=== PATIENT | female | born 1940 | race Caucasian/White ===

== ENCOUNTER 2017-02-06 21:15 | Inpatient (IN) | payer MEDICARE ==
[2017-02-06] VITALS (7 sets, daily range): BP systolic 141–180; BP diastolic 71–85; PULSE 53–70; RESP 18–24; TEMP 98; O2SAT 98–100
[~2017-02-06] VITALS: Ht 162.6 cm; Wt 81.1 kg
[2017-02-06] MEDS ORDERED: SODIUM CHLOR 0.9% 1000 ML INJ 1,000 ML IV ONE (21:30)
--- NOTE | 2017-02-06 21:39 | RADRPT ---
EXAM DATE/TIME: 02/06/2017 21:29 [facility] COMPARISON: No previous studies available for comparison. INDICATIONS : Stroke alert; left weakness, aphasia and hypertensive RADIATION DOSE: 56.35 CTDIvol (mGy) This report was called by Dr. Tariq to Dr. Koo at 9: 36 PM MEDICAL HISTORY : None SURGICAL HISTORY : None. ENCOUNTER: Initial ACUITY: 1 day PAIN SCALE: 0/10 LOCATION: cranial TECHNIQUE: Multiple contiguous axial images were obtained of the head. Using automated exposure control and adj ustment of the mA and/or kV according to patient size, radiation dose was kept as low as reasonably a chievable to obtain optimal diagnostic quality images. FINDINGS: CEREBRUM: The ventricles are normal for age. No evidence of midline shift, mass lesion, hemorrhage or acute in farction. No extra-axial fluid collections are seen. Mild chronic white matter low attenuation noted . POSTERIOR FOSSA: The cerebellum and brainstem are intact. The 4th ventricle is midline. The cerebellopontine angle i s unremarkable. EXTRACRANIAL: The visualized portion of the orbits is intact. SKULL: The calvaria is intact. No evidence of skull fracture. CONCLUSION: 1. No bleed or other acute intracranial abnormality. 2. Nothing convincing for an acute ischemic event. 3. Mild, chronic white matter changes. Henrique Tariq MD on February 06, 2017 at 21:36 Board Certified Radiologist. This report was verified electronically.
[2017-02-06 21:58] LABS: I-STAT POTASSIUM 3.9 MMOL/L (3.5-4.9); I-STAT SODIUM 140 MMOL/L (138-146)
[2017-02-06 21:59] LABS: AUTOMATED NEUTROPHIL # 3.4 TH/MM3 (1.8-7.7); BASOPHIL # 0.1 TH/MM3 (0-0.2); BASOPHIL % 1.5 % (0.0-2.0); EOSINOPHIL # 0.5 TH/MM3 (0-0.4); EOSINOPHIL % 7.5 % (0.0-4.0); HEMATOCRIT 38.7 % (35.0-46.0); HEMO FLAGS DIFF FINAL; LYMPHOCYTE # 2.1 TH/MM3 (1.0-4.8); MEAN CELL VOLUME 89.9 FL (80.0-100.0); MEAN CORPUSCULAR HEMOGLOBIN 30.7 PG (27.0-34.0); MEAN CORPUSCULAR HGB CONC 34.1 % (32.0-36.0); MONO % 11.3 % (0.0-8.0); NEUT % 49.7 % (16.0-70.0); PLATELET COUNT 183 TH/MM3 (150-450); RED BLOOD COUNT 4.31 MIL/MM3 (4.00-5.30); WHITE BLOOD COUNT 6.9 TH/MM3 (4.0-11.0)
--- NOTE | 2017-02-06 22:02 | PD ---
HPI Chief Complaint: Neuro Symptoms/ Deficits Time Seen by Provider: 21:22 Travel History International Travel<30 days: No Contact w/Intl Traveler<30days: No Traveled to known affect area: No History of Present Illness HPI The patient is a 76-year-old female with no known history of CVA or TIA who was last seen by her family at 1900 this afternoon and when the family arrived she had complete aphasia and right facial droop. Both a right facial droop and aphasia resolved quickly in the ambulance and when she arrives here she has normal speech and no facial droop. She denies any other weakness. She denies any headache. She has a history of elevated cholesterol, hypertension and restless leg syndrome. She takes Robinul for the restless leg syndrome and is on no other medication. [facility] Social History Tobacco Use: No Allergies-Medications (Allergen,Severity, Reaction): Coded Allergies: No Known Allergies (Unverified , 02/06/17) Reported Meds & Prescriptions Reported Meds & Active Scripts Active Reported Ropinirole 0.25 Mg Tab 0.25 Mg PO TID Review of Systems Except as stated in HPI: all other systems reviewed are Neg Physical Exam Narrative GENERAL: The patient is alert, oriented 3 in no apparent distress. Vital signs are 180/84 but are otherwise normal. SKIN: Focused skin assessment warm/dry. HEAD: Atraumatic. Normocephalic. EYES: Pupils equal and round. No scleral icterus. No injection or drainage. ENT: No nasal bleeding or discharge. Mucous membranes pink and moist. NECK: Trachea midline. No JVD. CARDIOVASCULAR: Regular rate and rhythm. No murmur appreciated. RESPIRATORY: No accessory muscle use. Clear to auscultation. Breath sounds equal bilaterally. GASTROINTESTINAL: Abdomen soft, non-tender, nondistended. Hepatic and splenic margins not palpable. MUSCULOSKELETAL: No obvious deformities. No clubbing. No cyanosis. No edema. NEUROLOGICAL: Awake and alert. No obvious cranial nerve deficits. Motor grossly within normal limits. Normal speech. No facial droop is noted at this time. PSYCHIATRIC: Appropriate mood and affect; insight and judgment normal. Data Data Last Documented VS Vital Signs Date Time Temp Pulse Resp B/P Pulse Ox O2 Delivery O2 Flow Rate FiO2 02/06/17 21:44 98 Nasal Cannula 2.00 02/06/17 21:35 59 18 162/72 02/06/17 21:[address] Brain W/O Iv Contrast(Rout) (02/06/17 ) Diet Npo (02/07/17 Breakfast) Activity Bed Rest (02/06/17 ) Electrocardiogram (02/06/17 ) I-Stat Creatinine (02/06/17 21:22) I-Stat Profile (02/06/17 21:22) Prothrombin Time / Inr (Pt) (02/06/17 21:22) Act Partial Throm Time (Ptt) (02/06/17 21:22) Complete Blood Count With Diff (02/06/17 21:22) Fibrinogen (02/06/17 21:22) Creatine Kinase (Cpk) (02/06/17 21:22) Troponin I (02/06/17 21:22) Ua Includes Microscopic (02/06/17 21:22) Drug Screen, Random Urine (02/06/17 21:22) Type And Screen (02/06/17 21:22) Consult Neurology (02/06/17 ) Blood Glucose (02/06/17 21:22) Ecg Monitoring (02/06/17 21:22) Neuro Checks Q2HX12,Q4H (02/06/17 21:22) Nursing Bedside Swallow Assess .ONCE (02/06/17 21:22) Iv Access Insert/Monitor (02/06/17 21:22) NPO (02/06/17 21:22) Oximetry (02/06/17 21:22) Oxygen Administration (02/06/17 21:22) Resp Oxygen Santy C Titrat 1-4 L (02/06/17 21:22) Cath For Specimen (02/06/17 21:22) Sodium Chlor 0.9% 1000 Ml Inj (Ns 1000 M (02/06/17 21:30) (Hub Use Only)Inp Phy Cons/Ref (02/06/17 ) Place In Observation (02/06/17 ) Vital Signs (Adult) Q2HX12,Q4H (02/06/17 22:15) Nih Stroke Scale - Nihss .Daily (02/06/17 22:15) Neuro Checks Q2HX12,Q4H (02/06/17 22:15) Notify Dr: Other (02/06/17 22:15) Ot Request For Service (02/06/17 22:15) Pt Request For Service (02/06/17 22:15) St Request For Service (02/06/17 22:15) Case Management Consult (02/06/17 ) Activity Oob Ad Ranjana (02/06/17 22:15) Nursing Bedside Swallow Assess .ONCE (02/06/17 22:15) Hemoglobin (Hgb) A1c (02/06/17 22:15) Lipid Profile (02/07/17 06:00) Remove Urinary Catheter .ONCE (02/06/17 22:15) Sodium Chloride 0.9% Flush (Ns Flush) (02/07/17 09:00) Sodium Chloride 0.9% Flush (Ns Flush) (02/06/17 22:15) Bedside Glucose PAXTON.AC&HS (02/06/17 22:15) ^ Discontinue Insulin Orders (02/06/17 22:15) Insulin Aspart Supplemtl Scale (Novolog (02/07/17 07:00) Dextrose 50% In Dipesh (Vial) Inj (D50w (Vi (02/06/17 22:15) Glucagon Inj (Glucagon Inj) (02/06/17 22:15) Manager Diesel / Telemetry PAXTON.Q8H (02/06/17 22:15) Consult Stoke Navigator (02/06/17 ) Us Carotid Arteries Comp Bilat (02/06/17 ) Echo 2d Comp W/Dopp(Routine) (02/06/17 ) CKMB (02/06/17 21:24) CKMB% (02/06/17 21:24) Admit Order (Ed Use Only) (02/06/17 22:20) Aspirin (Aspirin) (02/06/17 22:30) Labs Laboratory Tests Test 02/06/17 21:24 White Blood Count 6.9 TH/MM3 Red Blood Count 4.31 MIL/MM3 Hemoglobin 13.2 GM/DL Bedside Hemoglobin 12.9 G/DL Hematocrit 38.7 % Bedside Hematocrit 38.0 % Mean Corpuscular Volume 89.9 FL Mean Corpuscular Hemoglobin 30.7 PG Mean Corpuscular Hemoglobin 34.1 % Concent Red Cell Distribution Width 14.0 % Platelet Count 183 TH/MM3 Mean Platelet Volume 8.8 FL Neutrophils (%) (Auto) 49.7 % Lymphocytes (%) (Auto) 30.0 % Monocytes (%) (Auto) 11.3 % Eosinophils (%) (Auto) 7.5 % Basophils (%) (Auto) 1.5 % Neutrophils # (Auto) 3.4 TH/MM3 Lymphocytes # (Auto) 2.1 TH/MM3 Monocytes # (Auto) 0.8 TH/MM3 Eosinophils # (Auto) 0.5 TH/MM3 Basophils # (Auto) 0.1 TH/MM3 CBC Comment DIFF FINAL Differential Comment Prothrombin Time 10.8 SEC Prothromb Time International 1.0 RATIO Ratio Activated Partial 25.9 SEC Thromboplast Time Fibrinogen 269 mg/dL Bedside Sodium 140 MMOL/L Bedside Potassium 3.9 MMOL/L Bedside Chloride 103 MMOL/L Bedside Blood Urea Nitrogen 20 MG/DL Bedside Creatinine 0.9 MG/DL Bedside Glucose 99 MG/DL Total Creatine Kinase 483 U/L Troponin I LESS THAN 0.02 NG/ML MDM Medical Decision Making Medical Screen Exam Complete: Yes Emergency Medical Condition: Yes Medical Record Reviewed: Yes Interpretation(s) The CT brain is normal. The CBC is normal and the basic metabolic profile is normal. Differential Diagnosis TIA, ischemic CVA, intracranial bleed, electrolyte disorder, hypo-/hyperglycemia , renal insufficiency, coagulopathy Narrative Course The patient appears to have had a TIA. This is her first TIA and she has never had an ischemic CVA before. She will be admitted to the [facility]. Physician Communication Physician Communication I discussed the patient with Dr. Poe, the patient will be 23 hour observation to her, given fluids, bed flat and aspirin. I also discussed the patient with Dr. Richards. Diagnosis Primary Impression: TIA (transient ischemic attack) Admitting Information Admitting Physician Requests: Observation Agusto Koo MD Feb 06, 2017 22:02
[2017-02-06 22:04] LABS: PROTHROMBIN TIME - PATIENT 10.8 SEC (9.8-11.6)
[2017-02-06 22:10] LABS: APTT (PATIENT) 25.9 SEC (24.3-30.1)
[2017-02-06] MEDS ORDERED: ROPI0.25 PO (22:13)
[2017-02-06] MEDS ORDERED: SODIUM CHLORIDE 0.9% FLUSH 10 ML FLUSH IV FLUSH PRN (22:15)
[2017-02-06] MEDS ORDERED: GLUCAGON 1 MG/ML VIAL OTHER PRN (22:15)
[2017-02-06] MEDS ORDERED: DEXTROSE 50% IN WATER 50 ML VIAL(D50) IV PUSH PRN (22:15)
[2017-02-06 22:19] LABS: CREATINE KINASE 483 U/L (26-192)
[2017-02-06] MEDS ORDERED: ASPIRIN 325 MG TAB PO ONE (22:30)
[2017-02-06 22:31] LABS: CKMB 10.4 NG/ML (0.5-3.6)
--- NOTE | 2017-02-06 23:17 | HHI.HP ---
[facility] Service [facility] Primary Care Physician No Primary Care Physician Admission Diagnosis TIA Diagnoses: Chief Complaint: Expressive aphasia with facial droop- resolving Travel History International Travel<30 Days: No Contact w/Intl Traveler <30 Da: No Traveled to Known Affected Are: No History of Present Illness This is a 76 year old female patient with a past medical history which includes restless leg syndrome. Patient reports she just, "can't remember too well why she came to the hospital." Patient reports she feels, "ok" now. Therefore information gathered from patient as well as family present at bedside and prior charting. Per family report they arrived home approximately 7 PM and found patient unable to speak with right-sided facial droop. Per ER documentation patient droop and aphasia improved spontaneously while patient was in ambulance in route to the hospital. Patient denies history of CVA or TIA in the past. At time of evaluation patient has no evidence of facial droop does seem to have slight difficulty with word finding but speech is clear. Patient denies focal weakness. Patient and family members at bedside at bedside feels the symptoms have resolved. Patient denies N/V/D, dysuria, blood in urine or stool, LOC, SOB, dizziness, chest pain or shortness of breath. Blood glucose at time of arrival 99 Review of Systems Except as stated in HPI: all other systems reviewed are Neg Past Family Social History Past Medical History Restless leg syndrome Past Surgical History Hysterectomy, colonoscopy with polyp removal Reported Medications Ropinirole 0.25 Mg Tab 0.25 Mg PO TID Allergies: Coded Allergies: No Known Allergies (Unverified , 02/06/17) Active Ordered Medications Current Medications Medications (Trade) Dose Ordered Sig/Tammy Route Start Time Stop Time Status Last Admin (NS Flush) 2 ml BID IV FLUSH 02/07/17 09:00 (NS Flush) 2 ml UNSCH PRN IV FLUSH 02/06/17 22:15 (D50w (Vial) Inj) 25 ml UNSCH PRN IV PUSH 02/06/17 22:15 (Glucagon Inj) 1 mg UNSCH PRN OTHER 02/06/17 22:15 Aspirin 325 mg 325 mg DAILY PO 02/07/17 09:00 (NS 1000 ml Inj) 1,000 ml @ 70 mls/hr [id number] IV 02/06/17 23:15 02/06/17 23:38 Family History Denies family medical history including diabetes hypertension CVA or cancer Social History Lives with a cousin denies tobacco use, reports she quit, "a long time ago."- unable to give details denies ETOH use Physical Exam Vital Signs Vital Signs Date Time Temp Pulse Resp B/P Pulse Ox O2 Delivery O2 Flow Rate FiO2 02/06/17 21:44 98 Nasal Cannula 2.00 02/06/17 21:35 59 18 162/72 98 Nasal Cannula 2 02/06/17 21:34 61 18 161/71 100 Nasal Cannula 2 02/06/17 21:15 100 Nasal Cannula 2 02/06/17 21:15 98.0 70 18 180/84 100 02/06/17 21:12 99 2.00 Physical Exam GENERAL: This is a well-nourished, well-developed patient 76-year-old female patient with slight difficulty in word finding but appears to be in no apparent distress. SKIN: No rashes, ecchymoses or lesions. Cool and dry. HEAD: Atraumatic. Normocephalic. No temporal or scalp tenderness. EYES: Extraocular motions intact. No scleral icterus. No injection or drainage. CARDIOVASCULAR: Regular rate and rhythm without murmurs, gallops, or rubs. RESPIRATORY: Clear to auscultation. Breath sounds equal bilaterally. No wheezes , rales, or rhonchi. GASTROINTESTINAL: Abdomen soft, non-tender, nondistended. MUSCULOSKELETAL: Extremities without clubbing, cyanosis, or edema. No joint tenderness, effusion, or edema noted. No calf tenderness. Negative Homans sign bilaterally. NEUROLOGICAL: Awake and alert. Motor and sensory grossly within normal limits. 4 -5 out of 5 muscle strength in all muscle groups. Strength equal bilaterally. Slight difficulty in word finding speech appears clear Laboratory Laboratory Tests Test 02/06/17 21:24 White Blood Count 6.9 Red Blood Count 4.31 Hemoglobin 13.2 Bedside Hemoglobin 12.9 Hematocrit 38.7 Bedside Hematocrit 38.0 Mean Corpuscular Volume 89.9 Mean Corpuscular Hemoglobin 30.7 Mean Corpuscular Hemoglobin 34.1 Concent Red Cell Distribution Width 14.0 Platelet Count 183 Mean Platelet Volume 8.8 Neutrophils (%) (Auto) 49.7 Lymphocytes (%) (Auto) 30.0 Monocytes (%) (Auto) 11.3 Eosinophils (%) (Auto) 7.5 Basophils (%) (Auto) 1.5 Neutrophils # (Auto) 3.4 Lymphocytes # (Auto) 2.1 Monocytes # (Auto) 0.8 Eosinophils # (Auto) 0.5 Basophils # (Auto) 0.1 CBC Comment DIFF FINAL Differential Comment Prothrombin Time 10.8 Prothromb Time International 1.0 Ratio Activated Partial 25.9 Thromboplast Time Fibrinogen 269 Bedside Sodium 140 Bedside Potassium 3.9 Bedside Chloride 103 Bedside Blood Urea Nitrogen 20 Bedside Creatinine 0.9 Bedside Glucose 99 Total Creatine Kinase 483 Creatine Kinase MB 10.4 Creatine Kinase MB % 2.2 Troponin I LESS THAN 0.02 Blood Type O POSITIVE Antibody Screen NEGATIVE Blood Bank Comment Result Diagram: 02/06/174 Imaging Last Impressions Head CT 02/06/17 0000 Signed Impressions: Service Date/Time: Monday, February 06, 2017 21:29 - CONCLUSION: 1. No bleed or other acute intracranial abnormality. 2. Nothing convincing for an acute ischemic event. 3. Mild, chronic white matter changes. Henrique Tariq MD Assessment and Plan Problem List: (1) TIA (transient ischemic attack) ICD Code: G45.9 Status: Acute (2) Abnormal EKG ICD Code: R94.31 Status: Acute Assessment and Plan This is a 76 year old female patient with a past medical history which includes restless leg syndrome. Patient reports she just, "can't remember too well why she came to the hospital." Patient reports she feels, "ok" now. Therefore information gathered from patient as well as family present at bedside and prior charting. Per family report they arrived home approximately 7 PM and found patient unable to speak with right-sided facial droop. Per ER documentation patient droop and aphasia improved spontaneously while patient was in ambulance in route to the hospital. expressive aphagia with facial droop- resolved- likely TIA vs CVA CT head reviewed by my self and Dr Poe reveals . No bleed or other acute intracranial abnormality. 2. Nothing convincing for an acute ischemic event. 3. Mild, chronic white matter changes. aspirin given in ER, continue daily Stroke alert ER provider spoke with neurologist- patient felt not a TPA candidate due to resolving symptoms HOB flat permissive HTN Echocardiogram ordered US bilateral carotid arteries ordered Lipid profile and hemoglobin A1c in AM Serial neuro checks and continuous telemetry Abnormal EKG EKG reviewed by myself as well as Dr. Poe reveals sinus bradycardia rate of [address] inversion V1 through V6 Patient denies chest pain Serial troponin and serial EKG DVT prophylaxis with SCDs Discussed with the ER provider, nursing patient and family members at bedside Written by Penny Talbert, acting as scribe for Dr. Poe on 02/07/17 at 00: 06. This note was transcribed by scribe [Penny Talbert]. I, Dr. Jessa Poe personally performed the history, physical exam, and medical decision making; and confirmed the accuracy of the information in the transcribed note. Authenticated by Dr. Jessa Poe on 02/07/17 at 00:06. Penny Talbert Feb 06, 2017 23:17 Jessa Poe MD February 11, 2017 06:29
[2017-02-06] MEDS: SODIUM CHLOR 0.9% 1000 ML INJ 1,000 ML IV SCH (23:38)
[2017-02-07] VITALS (12 sets, daily range): BP systolic 110–170; BP diastolic 54–93; PULSE 47–78; RESP 18–20; TEMP 97.3–98.6; O2SAT 95–99
[2017-02-07 00:12] LABS: BLOOD, URINE SMALL (NEG); GLUCOSE,URINE NEG (NEG); KETONE, URINE NEG (NEG); MUCUS URINE FEW /lpf (OCC); NITRITE,URINE NEG (NEG); PH, URINE 6.5 (5.0-8.5); SQUAMOUS EPITHELIAL CELL URINE <1 /hpf (0-5); URINE COLOR LIGHT-YELLOW (YELLW/STRAW)
[2017-02-07 00:14] LABS: AMPHETAMINE, URINE NEG (NEG); BARBITURATES, URINE NEG (NEG); COCAINE, URINE NEG (NEG)
[2017-02-07 04:54] LABS: HDL CHOLESTEROL 28.8 MG/DL (40.0-60.0); LDL CHOLESTEROL 144 MG/DL (0-99)
[2017-02-07] MEDS: INSULIN ASPART SUPPLEMENTAL SCALE SQ SCH ×4 (06:09→21:00)
[2017-02-07] MEDS: ASPIRIN 325 MG TAB PO SCH (09:00)
[2017-02-07] MEDS: SODIUM CHLORIDE 0.9% FLUSH 10 ML FLUSH IV FLUSH SCH ×2 (09:00→21:00)
[2017-02-07 10:17] LABS: ALKALINE PHOSPHATASE 72 U/L (45-117); ALT (GPT) 35 U/L (10-53); AST (GOT) 42 U/L (15-37); INDIRECT BILIRUBIN 0.4 MG/DL (0.0-0.8); TOTAL BILIRUBIN ADULT 0.5 MG/DL (0.2-1.0)
--- NOTE | 2017-02-07 11:22 | RADRPT ---
EXAM DATE/TIME: 02/07/2017 08:33 [facility] COMPARISON: No previous studies available for comparison. INDICATIONS : Aphasia. Right facial droop. MEDICAL HISTORY : Hypertension. Renal calculi. Stroke. Aphasia. Right facial droop. Restless leg syndrom. SURGICAL HISTORY : Appendectomy. Cholecystectomy. Hysterectomy. ENCOUNTER: Initial ACUITY: 1 day PAIN SCORE: 0/10 LOCATION: Bilateral neck PEAK SYSTOLIC VELOCITIES (cm/sec): ICA/CCA RATIO: Right: 1.8 Left: 2.3 ICA: Right: 87 Left: 102 CCA: Right: 47 Left: 44 ECA: Right: 124 Left: 52 VERTEBRAL: Right: 36 antegrade Left: 69 antegrade Elevated flow velocities and ICA/CCA ratios have been found to correlate with increased degrees of vessel stenosis, calculated as percentage of diameter relative to a normal segment of distal ICA/CCA FINDINGS: Ultrasound of the carotid arteries was performed bilaterally using real-time Doppler and color Dopple r imaging. Examination of the right carotid artery demonstrates mild fibrous plaque within the bifurcation. No w aveform abnormalities are identified and no spectral broadening is seen. Examination of the left carotid artery demonstrates moderate fibrous and calcific plaque within the b ulb. There is elevated ICA/CCA showing left which may correspond to 50-70% stenosis. No waveform abno rmalities are identified and no spectral broadening is seen. There is antegrade flow in both vertebral arteries. CONCLUSION: 1. Elevated ICA/CCA showing left corresponding to 50-70% stenosis. CT angiography of the cervicobrach ial arch and carotid arteries is recommended for further evaluation if clinically indicated. Ever Resendiz MD on February 07, 2017 at 11:19 Board Certified Radiologist. This report was verified electronically.
--- NOTE | 2017-02-07 11:47 | HHI.PR ---
Subjective Remarks Follow-up for probable TIA. The patient states that yesterday she began having an episode of not being able to answer questions. She states this lasted for approximately an hour before resolved. She denies any further symptoms today. She does take an aspirin daily at home. She states that her blood pressure has been running in the 140s, and her PCP wants to start her medications. Her mother had a stroke. She denies any further weakness, vision changes, headache , chest pain, shortness of breath, nausea, vomiting. Objective Vitals Vital Signs Date Time Temp Pulse Resp B/P Pulse Ox O2 Delivery O2 Flow Rate FiO2 02/07/17 11:01 97.6 56 19 170/82 97 02/07/17 09:28 97.8 78 18 158/93 99 02/07/17 07:57 98 Nasal Cannula 2.00 02/07/17 03:53 98.6 47 20 110/54 98 02/07/17 01:09 51 02/07/17 01:00 98.0 51 20 137/64 99 02/06/17 23:56 53 24 141/85 98 Nasal Cannula 2 02/06/17 21:44 98 Nasal Cannula 2.00 02/06/17 21:35 59 18 162/72 98 Nasal Cannula 2 02/06/17 21:34 61 18 161/71 100 Nasal Cannula 2 02/06/17 21:22 99 Nasal Cannula 2.00 02/06/17 21:15 100 Nasal Cannula 2 02/06/17 21:15 98.0 70 18 180/84 100 02/06/17 21:12 99 2.00 Result Diagram: 02/06/172123 Imaging Last Impressions Head Magnetic Resonance Angiography 02/07/17 0000 Signed Impressions: Service Date/Time: January 12:22 - CONCLUSION: Moderate atherosclerotic disease of multiple branches bilaterally. Kian Bolanos MD Carotid Artery Ultrasound 02/07/17 0000 Signed Impressions: Service Date/Time: January 08:33 - CONCLUSION: 1. Elevated ICA/CCA showing left corresponding to 50-70%% stenosis. CT angiography of the cervicobrachial arch and carotid arteries is recommended for further evaluation if clinically indicated. Ever Resendiz MD Brain MRI 02/07/17 0000 Signed Impressions: Service Date/Time: January 12:22 - CONCLUSION: Acute infarction left frontal lobe without hemorrhage or mass effect. Kian Bolanos MD Head CT 02/06/17 0000 Signed Impressions: Service Date/Time: Monday, February 06, 2017 21:29 - CONCLUSION: 1. No bleed or other acute intracranial abnormality. 2. Nothing convincing for an acute ischemic event. 3. Mild, chronic white matter changes. Henrique Tariq MD Objective Remarks GENERAL: Well-developed well-nourished. In no acute distress. SKIN: Warm and dry. No lesions noted. HEENT: Normocephalic. Pupils equal and round. Mucous membranes pink and moist. CARDIOVASCULAR: Regular rate and rhythm. No murmur appreciated. RESPIRATORY: No accessory muscle use. Clear to auscultation. Breath sounds equal bilaterally. GASTROINTESTINAL: Abdomen soft, non-tender, nondistended. Bowel sounds x4. MUSCULOSKELETAL: No obvious deformities. No clubbing or cyanosis. No edema. NEUROLOGICAL: Awake and alert. No focal neurological deficits. Moves upper and lower extremities spontaneously. Normal speech. Cranial nerves grossly intact. Strength 5/5. PSYCHIATRIC: Appropriate mood and affect; insight and judgment normal. A/P Problem List: (1) TIA (transient ischemic attack) ICD Code: G45.9 Status: Acute (2) Abnormal EKG ICD Code: R94.31 Status: Acute Assessment and Plan This is a 76 year old female patient with a past medical history which includes restless leg syndrome. Patient reports she just, "can't remember too well why she came to the hospital." Patient reports she feels, "ok" now. Therefore information gathered from patient as well as family present at bedside and prior charting. Per family report they arrived home approximately 7 PM and found patient unable to speak with right-sided facial droop. Per ER documentation patient droop and aphasia improved spontaneously while patient was in ambulance in route to the hospital. Expressive aphasia with facial droop- 2/2 Acute ischemic stroke MRI brain Moderate atherosclerotic disease of multiple branches bilaterally. Reviewed: CT head reveals no bleed or other acute intracranial abnormality, mild chronic white matter changes. Carotid ultrasound with left ICA 5070 % stenosis with CT angiography ordered. Lipid profile with elevated LDL Continue daily aspirin Presented as Stroke alert, neurology consulted, not a TPA candidate permissive HTN for now Echocardiogram ordered Check CTA carotids Hemoglobin A1c pending Start statin Serial neuro checks and continuous telemetry MRIs ordered PT/OT/ST Abnormal EKG EKG showed sinus bradycardia rate of [address] inversion V1 through V6 Patient denies chest pain Serial troponins within normal limits Hypertension: Permissive for now pending brain MRIs. If MRIs were to show no stroke, will treat BP and start on antihypertensives. DVT prophylaxis with SCDs Written by Gabino Cantor, acting as scribe for Dr. Klein on 02/07/17 at 11:46. This note was transcribed by diamond CARMONA. I, Dr. Ju Klein personally performed the history, physical exam, and medical decision making; and confirmed the accuracy of the information in the transcribed note. Authenticated by Dr. Ju Klein on 02/07/17 at 11:46. Discharge Planning Patient had MRI reviewed, patient with acute ischemic stroke, will admit inpatient. DC pending improvement and clearance form consultants. Gabino Cantor Feb 07, 2017 11:47 Ju Klein MD Feb 07, 2017 14:56
--- NOTE | 2017-02-07 13:03 | MB ---
cc: CHRIS LI M.D. DATE OF CONSULTATION: 02/07/2017 1942 REASON FOR CONSULTATION Stroke versus TIA. HISTORY OF PRESENT ILLNESS The patient is a pleasant 76-year-old woman with history of RLS (restless leg syndrome), states that she had trouble speaking, could not get words out. Apparently, family arrived and stated the patient was unable to speak and had a right facial droop. This was told to the physicians examining her yesterday. She had word-finding issues. She is back to baseline now. She states that she always has a droopy right eye, she does not know why but can move everything, feels fine now. No chest pain, shortness of breath, weakness, numbness, tingling. She had an Accu-Chek of 99 when she arrived. PAST MEDICAL HISTORY Past medical history as stated of restless leg syndrome. PAST SURGICAL HISTORY 1. Hysterectomy. 2. Colonoscopy. 3. Polyp removal. MEDICATIONS Home meds: Ropinirole 0.25 mg, it says t.i.d. but she was telling me she takes it at nighttime and it needs to be verified. She does state she takes a baby aspirin. ALLERGIES None reported. FAMILY HISTORY Noncontributory at this point. SOCIAL HISTORY Lives with a cousin, does not smoke, does not drink. PHYSICAL EXAMINATION VITAL SIGNS: Temperature is 97.8, pulse 78, respiratory rate 18, blood pressure 158/93. NECK: Her neck is supple. No appreciable bruits. HEART: Regular. NEURO: She is awake, alert. She is oriented and fluent. Pupils reactive. She has what looks like a right ptosis. Extraocular muscles are intact. Otherwise nasolabial folds are symmetrical. Tongue is midline. She can repeat properly. She is not dysarthric. She is not aphasic. Motor-morales I do not see any weakness. No drift or leg lag. Toes are downgoing. DTRs are 1+. Sensory is normal. Cerebellar is intact. Gait is withheld, defer to PT. LABORATORY DATA Labs are reviewed. Cholesterol 214, triglycerides 208, LDL 144, HDL 28.8. Cardiac enzymes are negative but her CK is 483. LFTs are pending. Glucose 99, hemoglobin A1c is pending. Toxicology is negative. Urine shows small occult blood, few mucus. IMAGING STUDIES She just had a carotid ultrasound and report is not visible yet. CT did not show any acute findings. IMPRESSION/PLAN A 76-year-old woman with hyperlipidemia, likely some hypertension and restless leg syndrome, presents with possible stroke-like symptoms, aphasia. Recommend getting an MRI of the brain. Carotid ultrasound was just done, get an echo. Start her on a statin, blood pressure control, Lovenox for DVT prophylaxis. Full dose aspirin. Out of bed with physical therapy, if stable, discharge planning with risk factor modification as described. Further recommendations will be made accordingly. MD CAROLINE Woo/GUERDA /9:58 AM /12:46 PM
--- NOTE | 2017-02-07 13:28 | EC ---
Study Study Date:02/07/2017 STUDY CONCLUSIONS SUMMARY - Procedure narrative: Transthoracic echocardiography. Image quality was poor. Scanning was performed from the parasternal, apical, and subcostal acoustic windows. - Left ventricle: The cavity size was normal. Wall thickness was normal. Systolic function was normal. The estimated ejection fraction was in the range of 55% to 60%. Regional wall motion abnormalities cannot be excluded. - Tricuspid valve: Trace regurgitation. If LV function is below 40, please consider prescribing an ACEI or ARB or document rationale for non-use. PROCEDURE DATA STUDY STATUS: Elective. Procedure: Transthoracic echocardiography. Image quality was poor. Scanning was performed from the parasternal, apical, and subcostal acoustic windows. Study completion: The patient tolerated the procedure well. Transthoracic echocardiography. M-mode, complete 2D, complete spectral Doppler, and color Doppler. Height: Height: 64in. Weight: Weight: 184.6lb. Body mass index: BMI: 31.8kg/m^2. Body surface area: BSA: 1.89m^2. Patient status: Inpatient. CARDIAC ANATOMY LEFT VENTRICLE: The cavity size was normal. Wall thickness was normal. Systolic function was normal. The estimated ejection fraction was in the range of 55% to 60%. Regional wall motion abnormalities cannot be excluded. AORTIC VALVE: Trileaflet; normal thickness leaflets. Doppler: Transvalvular velocity was within the normal range. There was no stenosis. No regurgitation. Indexed valve area: 1.16cm^2/m^2 (Vmax). AORTA: Aortic root: The aortic root was normal in size. MITRAL VALVE: Structurally normal valve. Doppler: Transvalvular velocity was within the normal range. There was no evidence for stenosis. No regurgitation. Peak gradient: 2mm Hg (D). LEFT ATRIUM: The atrium was normal in size. RIGHT VENTRICLE: The cavity size was normal. Wall thickness was normal. PULMONIC VALVE: Doppler: Transvalvular velocity was within the normal range. There was no evidence for stenosis. No regurgitation. TRICUSPID VALVE: Structurally normal valve. Doppler: Transvalvular velocity was within the normal range. Trace regurgitation. PULMONARY ARTERY: The main pulmonary artery was normal-sized. Systolic pressure was within the normal range. RIGHT ATRIUM: The atrium was normal in size. PERICARDIUM: There was no pericardial effusion. SYSTEMIC VEINS: Inferior vena cava: The vessel was normal in size. Patient weight: 184.6lb _Ejection fraction:_ 65-75% _Fractional shortening:_ 32% up to 5Kg 5-11.5Kg 11.6-22.9Kg 23-45Kg 45-57Kg Aortic Root 7-13 <17 13-22 17-27 17-27 LA diam 6-13 <23 24-38 33-47 37-40 RVID 10-17 7-15 7-15 7-18 8-17 LVIDd 12-22 <32 24-38 33-47 37-40 LVPW 2-4 3-6 5-7 6-8 7-8 IVS 2-4 3-6 5-7 6-8 7-8 BASIC MEASUREMENTS ADULT NORMAL Left ventricle LV internal dimension, ED, chordal 45 mm 43-52 level, PLAX LV internal dimension, ES, chordal 38 mm 23-38 level, PLAX Fractional shortening, chordal level, *16 % >29 PLAX LV posterior wall thickness, ED 9.43 mm IVS/LVPW ratio, ED 1.17 <1.3 Ventricular septum Septal thickness, ED 11 mm Aortic valve Leaflet separation 19 mm 15-26 Right ventricle RV internal dimension, ED, PLAX 36.5 mm 19-38 BASIC MEASUREMENTS ADULT NORMAL Aortic valve Leaflet separation 19 mm 15-26 Aorta Root diameter, ED 23 mm 20-37 Left atrium Anterior-posterior dimension, ES 39 mm 19-40 Anterior-posterior dimension index, ES 2.06 cm/m^2 <2.2 LA/aortic root ratio 1.7 DOPPLER MEASUREMENTS ADULT NORMAL Main pulmonary artery Pressure, S 22 mm Hg =30 Aortic valve Peak velocity, S 122 cm/s Valve area index, Vmax 1.16 cm^2/m^2 Mitral valve Peak E-wave velocity 72.1 cm/s Peak A-wave velocity 98.7 cm/s Deceleration time *289 ms 150-230 Peak gradient, D 2 mm Hg Peak E/A ratio 0.7 Maximal regurgitant velocity 327 cm/s Tricuspid valve Regurgitant peak velocity 200 cm/s Peak RV-RA gradient, S 16 mm Hg Maximal regurgitant velocity 200 cm/s Systemic veins Estimated CVP 10 mm Hg Right ventricle RV pressure, S 26 mm Hg <30 Pulmonic valve Peak velocity, S 99.1 cm/s LEGEND: Mean values are shown as u=mean value. Asterisk (*) moise values outside specified normal range. Prepared and signed by Mayur Guy [id number]
[2017-02-07] MEDS: SODIUM CHLOR 0.9% 1000 ML INJ 1,000 ML IV SCH (13:33)
--- NOTE | 2017-02-07 13:33 | RADRPT ---
EXAM DATE/TIME: 02/07/2017 12:22 [facility] COMPARISON: CT BRAIN W/O CONTRAST, February 06, 2017, 21:29. INDICATIONS : CVA. MEDICAL HISTORY : Hypertension. SURGICAL HISTORY : Tonsillectomy. Hysterectomy. ENCOUNTER: Initial ACUITY: 1 day PAIN SCORE: 0/10 LOCATION: Head. TECHNIQUE: Multiplanar, multisequence MRI of the brain was performed without contrast. FINDINGS: There is an area of restriction in diffusion capacity involving the left frontal lobe junction o f the anterior parietal lobe. There is no hemorrhage or mass effect. Slight degree of brain atrophy i s seen. Slight periventricular white matter changes are seen nonspecific mostly consistent with chron ic small vessel ischemic changes. CONCLUSION: Acute infarction left frontal lobe without hemorrhage or mass effect. Kian Bolanos MD on February 07, 2017 at 13:28 Board Certified Radiologist. This report was verified electronically.
--- NOTE | 2017-02-07 13:35 | RADRPT ---
EXAM DATE/TIME: 02/07/2017 12:22 [facility] COMPARISON: No previous studies available for comparison. INDICATIONS : CVA. MEDICAL HISTORY : Hypertension. SURGICAL HISTORY : Tonsillectomy. Hysterectomy. ENCOUNTER: Initial ACUITY: 1 day PAIN SCORE: 0/10 LOCATION: Head. Please note a normal MRA of the brain does not entirely exclude the possibility of a small aneurysm, nor the possibility of distal intracranial vessel disease. TECHNIQUE: 3D time of flight MRA was performed. Source images, multiplanar STS MIP, and 3D volume MIP reconstru ctions were reviewed. FINDINGS: There is atherosclerotic disease to a moderate degree involving bilateral MCA, CEDRICK and posterior circ ulation. There is no evidence for aneurysm, vessel truncation or stenosis, and no evidence for vascu lar malformation. CONCLUSION: Moderate atherosclerotic disease of multiple branches bilaterally. Kian Bolanos MD on February 07, 2017 at 13:31 Board Certified Radiologist. This report was verified electronically.
--- NOTE | 2017-02-07 14:11 | EKG ---
Date Performed: 02/07/2017 Time Performed: 03:59:56 PTAGE: 76 years EKG: SINUS BRADYCARDIA MODERATE T-WAVE ABNORMALITY, CONSIDER ANTERIOR ISCHEMIA ABNORMAL ECG Comp ared to prior tracing no significant change PREVIOUS TRACING : 02/06/2017 21.46 DOCTOR: Ever Landrum Interpretating Date/Time 02/07/2017 14:07:00
--- NOTE | 2017-02-07 14:13 | EKG ---
Date Performed: 02/06/2017 Time Performed: 21:46:59 PTAGE: 76 years EKG: SINUS BRADYCARDIA MODERATE T-WAVE ABNORMALITY, CONSIDER ANTERIOR ISCHEMIA ABNORMAL ECG NO PREVIOUS TRACING DOCTOR: Ever Landrum Interpretating Date/Time 02/07/2017 14:09:24
[2017-02-07 16:39] LABS: HEMOGLOBIN A1b 1.5 %; HEMOGLOBIN LA1C 1.7 %; HEMOGLOBIN P3 3.5 %
[2017-02-07] MEDS ORDERED: ATORVASTATIN 20 MG TAB PO SCH (21:00)
[2017-02-08] VITALS (7 sets, daily range): BP systolic 114–146; BP diastolic 63–74; PULSE 48–70; RESP 16–18; TEMP 96.2–97.6; O2SAT 95–99
[2017-02-08] MEDS: SODIUM CHLOR 0.9% 1000 ML INJ 1,000 ML IV SCH (03:51)
[2017-02-08] MEDS: INSULIN ASPART SUPPLEMENTAL SCALE SQ SCH ×3 (05:52→16:00)
[2017-02-08 08:09] LABS: BICARBONATE 23.6 MEQ/L (21.0-32.0); POTASSIUM 3.9 MEQ/L (3.5-5.1)
--- NOTE | 2017-02-08 08:35 | HHI.PR ---
Subjective Remarks In the chair. Doesn't appear in acute distress. Speech is back to normal. No headache, change in vision or motor/sensory deficit. Feels comfortable to go home. Objective Vitals Vital Signs Date Time Temp Pulse Resp B/P Pulse Ox O2 Delivery O2 Flow Rate FiO2 02/08/17 08:15 96.2 49 18 146/74 98 02/08/17 06:13 97.6 70 16 128/64 99 02/08/17 00:45 97.2 69 16 130/63 99 02/07/17 20:37 68 02/07/17 20:00 97.3 60 18 151/71 95 02/07/17 19:03 97.5 60 20 163/70 97 02/07/17 15:13 57 02/07/17 14:39 97.4 56 18 139/62 96 02/07/17 13:32 155/80 02/07/17 11:01 97.6 56 19 170/82 97 02/07/17 09:28 97.8 78 18 158/93 99 I/O 02/07/17 02/07/17 02/07/17 02/08/17 02/08/17 02/08/17 06:59 14:59 22:59 06:59 14:59 22:59 Intake Total 970 ml Balance 970 ml Intake IV Total 970 ml # Voids 2 Result Diagram: 02/06/17212302/08/17 0650 Imaging Last Impressions Neck CTA 02/08/17 0000 Signed Impressions: Service Date/Time: Wednesday, February 08, 2017 11:23 - CONCLUSION: Borderline significant carotid stenosis on the left. Jona Beavers MD FACR Head CTA 02/08/17 0000 Signed Impressions: Service Date/Time: Wednesday, February 08, 2017 11:23 - CONCLUSION: 1. Limited exam showing moderate intracranial atherosclerotic disease. 2. There is no evidence for major branch vessel occlusion. Jona Beavers MD FACR Head Magnetic Resonance Angiography 02/07/17 0000 Signed Impressions: Service Date/Time: January 12:22 - CONCLUSION: Moderate atherosclerotic disease of multiple branches bilaterally. Kian Bolanos MD Carotid Artery Ultrasound 02/07/17 0000 Signed Impressions: Service Date/Time: January 08:33 - CONCLUSION: 1. Elevated ICA/CCA showing left corresponding to 50-70%% stenosis. CT angiography of the cervicobrachial arch and carotid arteries is recommended for further evaluation if clinically indicated. Ever Resendiz MD Brain MRI 02/07/17 0000 Signed Impressions: Service Date/Time: January 12:22 - CONCLUSION: Acute infarction left frontal lobe without hemorrhage or mass effect. Kian Bolanos MD Head CT 02/06/17 0000 Signed Impressions: Service Date/Time: Monday, February 06, 2017 21:29 - CONCLUSION: 1. No bleed or other acute intracranial abnormality. 2. Nothing convincing for an acute ischemic event. 3. Mild, chronic white matter changes. Henrique Tariq MD Objective Remarks GENERAL: Well-developed well-nourished. In no acute distress. SKIN: Warm and dry. No lesions noted. HEENT: Normocephalic. Pupils equal and round. Mucous membranes pink and moist. CARDIOVASCULAR: Regular rate and rhythm. No murmur appreciated. RESPIRATORY: No accessory muscle use. Clear to auscultation. Breath sounds equal bilaterally. GASTROINTESTINAL: Abdomen soft, non-tender, nondistended. Bowel sounds x4. MUSCULOSKELETAL: No obvious deformities. No clubbing or cyanosis. No edema. NEUROLOGICAL: Awake and alert. No focal neurological deficits. Moves upper and lower extremities spontaneously. Normal speech. Cranial nerves grossly intact. Strength 5/5. PSYCHIATRIC: Appropriate mood and affect; insight and judgment normal. A/P Problem List: (1) TIA (transient ischemic attack) ICD Code: G45.9 Status: Acute (2) Abnormal EKG ICD Code: R94.31 Status: Acute Assessment and Plan This is a 76 year old female patient with a past medical history which includes restless leg syndrome. Patient reports she just, "can't remember too well why she came to the hospital." Patient reports she feels, "ok" now. Therefore information gathered from patient as well as family present at bedside and prior charting. Per family report they arrived home approximately 7 PM and found patient unable to speak with right-sided facial droop. Per ER documentation patient droop and aphasia improved spontaneously while patient was in ambulance in route to the hospital. Expressive aphasia with facial droop- 2/2 Acute ischemic stroke MRI brain Moderate atherosclerotic disease of multiple branches bilaterally. Reviewed: CT head reveals no bleed or other acute intracranial abnormality, mild chronic white matter changes. Carotid ultrasound with left ICA 5070 % stenosis with CT angiography ordered. Lipid profile with elevated LDL Continue daily aspirin Presented as Stroke alert, neurology consulted, not a TPA candidate Allow permissive HTN for now Echocardiogram EF 55-60 % Check CTA carotids less than 50% occlusion, medical management Hemoglobin A1c 5.8 no diabetes Serial neuro checks and continuous telemetry MRIs as above. CTA as above, no significant occlusion. To follow up as OP with Dr Okeefe PT/OT/ST Abnormal EKG EKG showed sinus bradycardia rate of [address] inversion V1 through V6 Patient denies chest pain Serial troponins within normal limits Hypertension: Permissive for now pending brain MRIs. If MRIs were to show no stroke, will treat BP and start on antihypertensives. HLD start statin. DVT prophylaxis with SCDs DC plan Discussed with Dr Okeefe neurology. OK for DC to follow up as OP. Patient to follow up as OP with PCP and consultants. Ju Klein MD Feb 08, 2017 08:34
[2017-02-08] MEDS ORDERED: amLODIPine BESYLATE 5 MG TAB PO SCH (09:00)
[2017-02-08] MEDS: ASPIRIN 325 MG TAB PO SCH (09:04)
[2017-02-08] MEDS: SODIUM CHLORIDE 0.9% FLUSH 10 ML FLUSH IV FLUSH SCH (09:04)
[2017-02-08] MEDS ORDERED: IOHEXOL 350 MG/ML 10 ML VIAL (for RAD DIAG) IV ONE (11:27)
--- NOTE | 2017-02-08 12:51 | RADRPT ---
EXAM DATE/TIME: 02/08/2017 11:23 [facility] COMPARISON: MRA BRAIN W/O CONTRAST, February 07, 2017, 12:22. INDICATIONS : Occlusion. IV CONTRAST: 60 cc Omnipaque 350 (iohexol) IV ; Cumulative dose for multiple exams. RADIATION DOSE: 15.81 CTDIvol (mGy) ; Combined studies MEDICAL HISTORY : Cerebrovascular disease. Hypertension. SURGICAL HISTORY : Hysterectomy. ENCOUNTER: Initial ACUITY: 1 day PAIN SCALE: 0/10 LOCATION: Cranial TECHNIQUE: Volumetric scanning was performed using a multi-row detector CT scanner. The data was post processed with a variety of visualization algorithms including full volume maximum intensity projection, multi -planar sliding thin slab reformation, curved planar reformation, and surface rendering techniques. Using automated exposure control and adjustment of the mA and/or kV according to patient size, radiat ion dose was kept as low as reasonably achievable to obtain optimal diagnostic quality images. FINDINGS: CT angiography was performed, moderate atherosclerotic intracranial vascular disease is present. The re is no evidence for major branch vessel occlusion. There is no evidence for aneurysm. Both verteb ral arteries are patent. There is a patent posterior communicating artery on the right. CONCLUSION: 1. Limited exam showing moderate intracranial atherosclerotic disease. 2. There is no evidence for major branch vessel occlusion. Jona Beavers MD FACR on February 08, 2017 at 12:37 Board Certified Radiologist. This report was verified electronically.
--- NOTE | 2017-02-08 12:55 | RADRPT ---
EXAM DATE/TIME: 02/08/2017 11:23 [facility] COMPARISON: No previous studies available for comparison. INDICATIONS : Occlusion. IV CONTRAST: 60 cc Omnipaque 350 (iohexol) IV ; Cumulative dose for multiple exams. RADIATION DOSE: 15.81 CTDIvol (mGy) ; Combined studies MEDICAL HISTORY : Cerebrovascular disease. Hypertension. SURGICAL HISTORY : Hysterectomy. ENCOUNTER: Initial ACUITY: 1 day PAIN SCALE: 0/10 LOCATION: Neck Elevated flow velocities and ICA/CCA ratios have been found to correlate with increased degrees of vessel stenosis, calculated as percentage of diameter relative to a normal segment of distal ICA/CCA. TECHNIQUE: Volumetric scanning was performed using a multirow detector CT scanner. The data was post processed with a variety of visualization algorithms including full-volume maximum intensity projection, multip lanar sliding thin-slab reformation, curved-planar reformation, and surface-rendering techniques. Us ing automated exposure control and adjustment of the mA and/or kV according to patient size, radiatio n dose was kept as low as reasonably achievable to obtain optimal diagnostic quality images. FINDINGS: Branching pattern of the great vessels is normal. RIGHT CAROTID: There is moderate tortuosity of the right carotid without hemodynamically significant stenosis. LEFT CAROTID: There is moderate tortuosity of the left carotid with a large calcified plaque identified. This is o f borderline significance by CT angiography, right at 50%. VERTEBRALS: Both vertebral arteries are patent. CONCLUSION: Borderline significant carotid stenosis on the left. Jona Beavers MD FACR on February 08, 2017 at 12:38 Board Certified Radiologist. This report was verified electronically.
[2017-02-08] MEDS ORDERED: ASPI325T PO (17:17)
[2017-02-08] MEDS ORDERED: ATOR20TA15 PO (17:17)
[2017-02-08] MEDS ORDERED: AMLO5 PO (17:17)
--- NOTE | 2017-02-08 17:18 | HHI.DCPOC ---
Discharge Care Plan Goals to Promote Your Health * To prevent worsening of your condition and complications * To maintain your health at the optimal level Directions to Meet Your Goals Take your medications as prescribed Follow your dietary instruction Follow activity as directed Keep your appointments as scheduled Take your immunizations and boosters as scheduled If your symptoms worsen call your PCP, if no PCP go to Urgent Care Center or Emergency Room Smoking is Dangerous to Your Health. Avoid second hand smoke Call the 24-hour hour crisis hotline for domestic abuse at Ju Klein MD Feb 08, 2017 17:18
--- NOTE | 2017-02-09 19:27 | EKG ---
Date Performed: 02/08/2017 Time Performed: 14:24:58 PTAGE: 76 years EKG: Sinus rhythm MODERATE T-WAVE ABNORMALITY ABNORMAL ECG PREVIOUS TRACING : 02/07/2017 03.59 Compared to prior tracing no significant change DOCTOR: Gonzalez Buckner Interpretating Date/Time 02/09/2017 19:26:27
== END 2017-02-08 17:40 | disposition home or self-care (01) | DRG 66 ==
LOC: NEPC 21:15 → NEDA 22:23 → NEPFCDU 02-07 00:43 → OBSVTOIN 02-07 14:07 → N05B 02-07 18:04
PROVIDERS: ADMIT Hospitalist; ATTEND Hospitalist
DX: I63.9 Cerebral infarction, unspecified (principal); R47.01 Aphasia; R00.1 Bradycardia, unspecified; I10 Essential (primary) hypertension; R29.810 Facial weakness; E78.00 Pure hypercholesterolemia, unspecified; G25.81 Restless legs syndrome; Z86.010 Personal history of colon polyps; R94.31 Abnormal electrocardiogram [ECG] [EKG]; E78.5 Hyperlipidemia, unspecified; Z82.3 Family history of stroke
CPT/HCPCS: 70450; 70496; 70498; 70544; 70551; 80048; 80061; 80076; 80307; 81001; 82435; 82550; 82552; 82565; 82947; 82948; 83036; 84132; 84295; 84484; 84520; 85025; 85384; 85610; 85730; 86850; 86900; 86901; 93005; 93306; 93880; 96374; G0378; G8987-GP; G8988-GP; J1815; J7030; Q9967

== ENCOUNTER → 2017-09-30 | Outpatient (CLI) | payer MEDICARE ==
[~2017-09-30] MED LIST: AMLO5 PO; ASPI-183 PO; ATOR20TA15 PO; ROPI0.25 PO
[2017-09-30 10:13] LABS: BLOOD GAS BASE EXCESS -3.4 mmol/L (-2-2); BLOOD GAS CARBOXYHEMOGLOBIN 0.7 % (0-4); BLOOD GAS HCO3 20 mmol/L (22-26); BLOOD GAS METHEMOGLOBIN 1.3 % (0-2); BLOOD GAS O2 HGB SATURATION 95 % (90-100); BLOOD GAS OXYGEN CONTENT 16.6 Vol % (12.0-20.0); BLOOD GAS PCO2 31 mmHg (38-42); BLOOD GAS PO2 98 mmHg (61-120); BLOOD GAS TOTAL HGB 12.3 G/DL (12.0-16.0); TEMP CORR TO 98.6
[2017-09-30 10:14] LABS: CRITICAL VALUE NO; DRAW SITE RT RADIAL; FIO2 21 %; NUMBER OF ARTERIAL PUNCTURES 1; STAT NO; ULNAR PULSE PRESENT
== END ==
LOC: HRSP 09:07
PROVIDERS: ATTEND Internal Medicine Pulmonary Disease
DX: R06.02 Shortness of breath (principal)
CPT/HCPCS: 36600; 82805; 94060; 94620; 94726; 94729

== ENCOUNTER → 2017-12-30 | Outpatient (CLI) | payer MEDICARE ==
--- NOTE | 2017-12-30 10:49 | RADRPT ---
EXAM DATE/TIME: 12/30/2017 00:00 [facility] COMPARISON: No previous studies available for comparison. INDICATIONS : Dysphagia FLUORO TIME: 2.2 minutes IMAGE COUNT: 0 CONTRAST: Dose as prescribed by speech pathologist. MEDICAL HISTORY : Stroke. Cerebrovascular disease. SURGICAL HISTORY : Appendectomy. Cholecystectomy. Hysterectomy. ENCOUNTER: Initial ACUITY: 1 day PAIN SCORE: 0/10 LOCATION: Bilateral esophagus FINDINGS: A modified barium swallow was performed with speech pathology. Patient was given a variety of liquids to swallow. No aspiration is witnessed For a full detailed report, see report by the speech pathologist. CONCLUSION: No aspiration Henrique Anderson MD on December 30, 2017 at 10:46 Board Certified Radiologist. This report was verified electronically.
== END ==
LOC: HRAD 09:54
PROVIDERS: ATTEND Internal Medicine Pulmonary Disease
DX: R13.10 Dysphagia, unspecified (principal)
CPT/HCPCS: 74230; 92611; G8996; G8997; G8998

== ENCOUNTER 2018-02-28 11:05 | Emergency (ER) | payer MEDICARE ==
[2018-02-28 11:18] VITALS: BP 200/77; PULSE 77; RESP 20; TEMP 98.6; O2SAT 100
[2018-02-28] MEDS ORDERED: FURO20TA PO (11:42)
[2018-02-28] MEDS ORDERED: LISI10TA3 PO (11:42)
[2018-02-28] MEDS ORDERED: VENTAER INH (11:42)
[2018-02-28] MEDS ORDERED: KLOR10TA PO (11:42)
[2018-02-28 12:41] LABS: BASOPHIL % 0.2 % (0.0-2.0); EOSINOPHIL # 1.6 TH/MM3 (0-0.4); EOSINOPHIL % 14.7 % (0.0-4.0); HEMATOCRIT 39.7 % (35.0-46.0); HEMOGLOBIN 13.6 GM/DL (11.6-15.3); LYMPH % 16.5 % (9.0-44.0); LYMPHOCYTE # 1.8 TH/MM3 (1.0-4.8); MEAN CORPUSCULAR HEMOGLOBIN 31.1 PG (27.0-34.0); MEAN CORPUSCULAR HGB CONC 34.1 % (32.0-36.0); MEAN PLATELET VOLUME 8.3 FL (7.0-11.0); MONO % 11.8 % (0.0-8.0); MONOCYTE # 1.2 TH/MM3 (0-0.9); NEUT % 56.8 % (16.0-70.0); PLATELET COUNT 253 TH/MM3 (150-450); RED BLOOD COUNT 4.36 MIL/MM3 (4.00-5.30); RED CELL DISTRIBUTION WIDTH 14.2 % (11.6-17.2); WHITE BLOOD COUNT 10.6 TH/MM3 (4.0-11.0)
[2018-02-28 12:48] LABS: PROTHROMBIN TIME - PATIENT 10.4 SEC (9.8-11.6)
[2018-02-28 13:08] LABS: CREATININE 0.97 MG/DL (0.50-1.00)
[2018-02-28 13:09] LABS: BICARBONATE 24.2 MEQ/L (21.0-32.0)
--- NOTE | 2018-02-28 13:11 | RADRPT ---
EXAM DATE/TIME: 02/28/2018 12:24 [facility] COMPARISON: No previous studies available for comparison. INDICATIONS : Bilateral leg swelling. MEDICAL HISTORY : Stroke. Hypercholesterolemia. Hypertension. Sleep apnea. Bradycardia. Restless leg syndrome. SURGICAL HISTORY : Appendectomy.Cholecystectomy. Hysterectomy. ENCOUNTER: Initial ACUITY: 2 weeks PAIN SCORE: 3/10 LOCATION: Bilateral legs. TECHNIQUE: Venous ultrasound of the left and right leg was performed from the inguinal ligament to the proximal calf. Real-time, color Doppler and spectral tracing, compression and augmentation techniques were us ed. FINDINGS: RIGHT LEG: There is normal compressibility of the deep venous system from the inguinal region to the proximal ca lf. No echogenic clot is seen in the lumen of the common femoral, femoral, popliteal, and posterior tibial veins. There is a normal response of the venous system to proximal and distal augmentation an d respiration. LEFT LEG: There is normal compressibility of the deep venous system from the inguinal region to the proximal ca lf. No echogenic clot is seen in the lumen of the common femoral, femoral, popliteal, and posterior tibial veins. There is a normal response of the venous system to proximal and distal augmentation an d respiration. CONCLUSION: Normal examination. Arron Velázquez MD on February 28, 2018 at 13:09 Board Certified Radiologist. This report was verified electronically.
--- NOTE | 2018-02-28 13:24 | PD ---
HPI Chief Complaint: Skin Problem Time Seen by Provider: 12:13 Travel History International Travel<30 days: No Contact w/Intl Traveler<30days: No Traveled to known affect area: No History of Present Illness HPI 77-year-old female patient with history of chronic leg edema, presents to the ER today because over last week her legs have been getting more swollen, red, and has had clear blisters and oozing. She denies any fevers, shortness of breath, or other symptoms. She states that she has been here for this before and has been on Lasix, but is still getting worse. 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) Diminished Hearing: No Endocrine: No Gastrointestinal Disorders: Yes Genitourinary: No Hypertension: Yes Musculoskeletal: Yes (restless leg syndrome) Neurologic: Yes Psychiatric: No Respiratory: Yes Sleep Apnea: Yes Tetanus Vaccination: < 5 Years Influenza Vaccination: No : 0 Past Surgical History Appendectomy: Yes Cholecystectomy: Yes Hysterectomy: Yes (PARTIAL) Social History Alcohol Use: No Tobacco Use: No Substance Use: No Allergies-Medications (Allergen,Severity, Reaction): Coded Allergies: No Known Allergies (Unverified Adverse Reaction, Unknown, 02/28/18) Reported Meds & Prescriptions Reported Meds & Active Scripts Active Aspirin 325 Mg Tab 325 Mg PO DAILY Atorvastatin (Atorvastatin Calcium) 20 Mg Tab 20 Mg PO HS Reported Lisinopril 10 Mg Tab 10 Mg PO DAILY Klor-Con 10 (Potassium Chloride) 10 Meq Tab 10 Meq PO DAILY Furosemide 20 Mg Tab 20 Mg PO DAILY Ventolin Hfa 18 GM Inh (Albuterol Sulfate) 90 Mcg/Act Aer 2 Puff INH Q6H PRN Ropinirole 0.25 Mg Tab 0.25 Mg PO TID Review of Systems Except as stated in HPI: all other systems reviewed are Neg Physical Exam Narrative GENERAL: Well-developed obese white female patient currently in mild distress. Awake and oriented 3. SKIN: Focused skin assessment warm/dry. HEAD: Atraumatic. Normocephalic. EYES: Pupils equal and round. No scleral icterus. No injection or drainage. ENT: No nasal bleeding or discharge. Mucous membranes pink and moist. NECK: Trachea midline. No JVD. CARDIOVASCULAR: Regular rate and rhythm. No murmur appreciated. RESPIRATORY: No accessory muscle use. Clear to auscultation. Breath sounds equal bilaterally. GASTROINTESTINAL: Abdomen soft, obese, non-tender, nondistended. Hepatic and splenic margins not palpable. MUSCULOSKELETAL: No obvious deformities. No clubbing. No cyanosis. Bilateral pitting edema and erythema of both lower legs, with bulla containing clear yellow fluid, oozing, mildly tender to palpation bilaterally. NEUROLOGICAL: Awake and alert. No obvious cranial nerve deficits. Motor grossly within normal limits. Normal speech. PSYCHIATRIC: Appropriate mood and affect; insight and judgment normal. Data Data Last Documented VS Vital Signs Date Time Temp Pulse Resp B/P (MAP) Pulse Ox O2 Delivery O2 Flow Rate FiO2 02/28/18 13:55 71 19 164/73 (103) 100 Room Air 02/28/18 11:18 98.6 Orders Orders Complete Blood Count With Diff (02/28/18 11:21) Basic Metabolic Panel (Bmp) (02/28/18 11:21) Act Partial Throm Time (Ptt) (02/28/18 11:21) Prothrombin Time / Inr (Pt) (02/28/18 11:21) Lactic Acid (02/28/18 11:21) Us Leg Venous Doppler Bilat (02/28/18 12:13) Furosemide Inj (Lasix Inj) (02/28/18 13:45) Ed Discharge Order (02/28/18 14:17) Labs Laboratory Tests Test 02/28/18 12:15 02/28/18 13:00 White Blood Count 10.6 TH/MM3 Red Blood Count 4.36 MIL/MM3 Hemoglobin 13.6 GM/DL Hematocrit 39.7 % Mean Corpuscular Volume 91.0 FL Mean Corpuscular Hemoglobin 31.1 PG Mean Corpuscular Hemoglobin Concent 34.1 % Red Cell Distribution Width 14.2 % Platelet Count 253 TH/MM3 Mean Platelet Volume 8.3 FL Neutrophils (%) (Auto) 56.8 % Lymphocytes (%) (Auto) 16.5 % Monocytes (%) (Auto) 11.8 % Eosinophils (%) (Auto) 14.7 % Basophils (%) (Auto) 0.2 % Neutrophils # (Auto) 6.0 TH/MM3 Lymphocytes # (Auto) 1.8 TH/MM3 Monocytes # (Auto) 1.2 TH/MM3 Eosinophils # (Auto) 1.6 TH/MM3 Basophils # (Auto) 0.0 TH/MM3 CBC Comment DIFF FINAL Differential Comment Prothrombin Time 10.4 SEC Prothromb Time International Ratio 1.0 RATIO Activated Partial Thromboplast Time 25.4 SEC Blood Urea Nitrogen 12 MG/DL Creatinine 0.97 MG/DL Random Glucose 96 MG/DL Calcium Level 9.0 MG/DL Sodium Level 137 MEQ/L Potassium Level 4.4 MEQ/L Chloride Level 104 MEQ/L Carbon Dioxide Level 24.2 MEQ/L Anion Gap 9 MEQ/L Estimat Glomerular Filtration Rate 56 ML/MIN Lactic Acid Level 1.1 mmol/L [facility] Medical Decision Making Medical Screen Exam Complete: Yes Emergency Medical Condition: Yes Medical Record Reviewed: Yes Interpretation(s) Laboratory Tests Test 02/28/18 12:15 02/28/18 13:00 Monocytes (%) (Auto) 11.8 % (0.0-8.0) Eosinophils (%) (Auto) 14.7 % (0.0-4.0) Monocytes # (Auto) 1.2 TH/MM3 (0-0.9) Eosinophils # (Auto) 1.6 TH/MM3 (0-0.4) Estimat Glomerular Filtration Rate 56 ML/MIN (>89) Last 24 hours Impressions Lower Extremity Ultrasound 02/28/18 1213 Signed Impressions: Service Date/Time: Wednesday, February 28, 2018 12:24 - CONCLUSION: Normal examination. Arron Velázquez MD Differential Diagnosis Chronic leg edema versus leg cellulitis versus DVT Narrative Course Ultrasound shows no DVT. Lab work was fairly unremarkable otherwise, no signs of sepsis. At this point, it looks like this is localized cellulitis but mostly just worsening pitting edema. Patient was given a dose of Lasix IV. My plan would be to release her with increase in Lasix and antibiotic p.o. with close follow-up to primary care doctor. Return for worsening in symptoms as needed. The plan has been discussed with her and she states understanding. Diagnosis Primary Impression: Cellulitis, leg Additional Impression: Leg edema Med/Other Pt SpecificInfo: Prescription(s) given Scripts Cephalexin (Keflex) 500 Mg Capsule 500 MG PO Q6H for Infection for 7 Days, #28 CAP 0 Refills Prov: Soontharothai,Rewadee MD 02/28/18 Furosemide (Lasix) 20 Mg Tab 20 MG PO BID, #30 TAB 0 Refills Prov: Pooja Luna MD 02/28/18 Disposition: 01 DISCHARGE HOME Condition: Stable Pooja Luna MD February 28, 2018 13:24
[2018-02-28] MEDS ORDERED: FUROSEMIDE 40 MG/4 ML VIAL IV PUSH ONE (13:45)
[2018-02-28 13:55] VITALS: BP 164/73; PULSE 71; RESP 19; O2SAT 100
[2018-02-28] MEDS ORDERED: FURO1TAB62 PO (14:21)
[2018-02-28] MEDS ORDERED: CEPH-460 PO (14:21)
== END 2018-02-28 15:06 | disposition home or self-care (01) ==
LOC: NEPC 11:05
DX: L03.119 Cellulitis of unspecified part of limb (principal); E78.00 Pure hypercholesterolemia, unspecified; I10 Essential (primary) hypertension
CPT/HCPCS: 80048; 83605; 85025; 85610; 85730; 93970; 96374; 99284; J1940

== ENCOUNTER 2018-03-05 17:39 | Inpatient (IN) | payer MEDICARE ==
[~2018-03-05] VITALS: Ht 162.6 cm; Wt 91.7 kg
[~2018-03-05 17:39] MED LIST changes: -AMLO5 PO; +CEPH-460 PO; +FURO1TAB62 PO; +KLOR10TA PO; +LISI10TA3 PO; +VENTAER INH
[2018-03-05 17:51] VITALS: BP 136/78; PULSE 79; RESP 16; TEMP 98.6; O2SAT 100
[2018-03-05 20:30] VITALS: BP 122/70; PULSE 79; RESP 16; O2SAT 97
--- NOTE | 2018-03-05 20:41 | PD ---
HPI Chief Complaint: Pain: Acute or Chronic Time Seen by Provider: 20:07 Travel History International Travel<30 days: No Contact w/Intl Traveler<30days: No Traveled to known affect area: No History of Present Illness HPI 77-year-old white female presents emergency department from home accompanied by family member and friend for evaluation of worsening pedal edema. Patient has had a history of worsening pedal edema over the past week. She was seen in the emergency department 5 days ago and was instructed to increase her Lasix, take Keflex for cellulitis and follow-up with her physician. The patient has not seen her physician since discharge. She states that even though she is following instructions she has had increasing edema of the lower legs with multiple oozing vesicular bullae on her lower extremities which are now open and draining serous fluid. She is complained of increasing pain and decreased ability to ambulate. She states that she normally has been able to ambulate but over the past week she has had significant decrease due to loss of strength , edema and pain. Patient denies any fever. She does state that she feels chilled at times. She denies any chest pain, shortness of breath. No nausea vomiting. No abdominal pain. She also states that she is developed a pruritic rash diffusely on her body. PFSH Past Medical History Hx Anticoagulant Therapy: No Blood Disorders: No Cancer: No Cardiovascular Problems: Yes High Cholesterol: Yes Cerebrovascular Accident: Yes Diminished Hearing: No Endocrine: No Gastrointestinal Disorders: Yes Genitourinary: No Hypertension: Yes Musculoskeletal: Yes (restless leg syndrome) Neurologic: Yes Psychiatric: No Respiratory: Yes Immunizations Current: Yes Sleep Apnea: Yes Tetanus Vaccination: Unknown Influenza Vaccination: No : 0 Past Surgical History Appendectomy: Yes Cholecystectomy: Yes Hysterectomy: Yes (PARTIAL) Other Surgery: No Social History Alcohol Use: No Tobacco Use: No Substance Use: No Allergies-Medications (Allergen,Severity, Reaction): Coded Allergies: No Known Allergies (Unverified Adverse Reaction, Unknown, 03/05/18) Reported Meds & Prescriptions Reported Meds & Active Scripts Active Keflex (Cephalexin) 500 Mg Capsule 500 Mg PO Q6H 7 Days Lasix (Furosemide) 20 Mg Tab 20 Mg PO BID Aspirin 325 Mg Tab 325 Mg PO DAILY Atorvastatin (Atorvastatin Calcium) 20 Mg Tab 20 Mg PO HS Reported Lisinopril 10 Mg Tab 10 Mg PO DAILY Klor-Con 10 (Potassium Chloride) 10 Meq Tab 10 Meq PO DAILY Ventolin Hfa 18 GM Inh (Albuterol Sulfate) 90 Mcg/Act Aer 2 Puff INH Q6H PRN Ropinirole 0.25 Mg Tab 0.25 Mg PO TID Review of Systems General / Constitutional: Positive: Chills, No: Fever Eyes: No: Visual changes HENT: No: Headaches Cardiovascular: No: Chest Pain or Discomfort, Palpitations Respiratory: No: Cough, Shortness of Breath Gastrointestinal: No: Nausea, Vomiting, Abdominal Pain Genitourinary: No: Dysuria Musculoskeletal: Positive: Myalgias, Arthralgias, Edema, Pain Skin: Positive Rash, Positive Itching, Positive Lesions, Positive Other (Open draining blisters) Neurologic: Positive: Weakness Psychiatric: No: Depression Endocrine: No: Polydipsia Hematologic/Lymphatic: No: Easy Bruising Physical Exam Narrative GENERAL: Well-developed, obese in no apparent distress. Nontoxic appearing. HEAD: Normocephalic, atraumatic. EYES: Pupils equal round and reactive. Extraocular motions intact. No scleral icterus. No injection or drainage. ENT: Nose clear. Throat without erythema, tonsillar hypertrophy or exudate. Uvula midline. Airway patent. NECK: Trachea midline. Supple, nontender, moves head freely. No central bony tenderness or spasm. CARDIOVASCULAR: Regular rate and rhythm without murmurs, gallops, or rubs. RESPIRATORY: Clear to auscultation. Breath sounds equal bilaterally. No wheezes , rales, or rhonchi. GASTROINTESTINAL: Abdomen soft, non-tender, obese istended. No hepato- splenomegaly, or palpable masses. No guarding. EXTREMITIES: Patient has large edematous 3-4+ edema, woody, with multiple open draining blebs/bullae and to large shearing blisters down into the feet. She has poor dopplerable pulses in the posterior tibialis pulse. She has fair right and poor left anterior tibialis pulse. BACK: Nontender without deformity. No flank tenderness. NEUROLOGICAL: Awake, alert and oriented x 3 .Cranial nerves grossly intact. Motor and sensory grossly within normal limits. Normal speech. Skin: Patient has diffuse thickening of the skin with macular excoriated lesions diffusely on the body. She has open draining bullae to the lower legs from the thigh down into the feet. Positive erythema no significant warmth. Discharge is serous in nature. No purulence. Data Data Last Documented VS Vital Signs Date Time Temp Pulse Resp B/P (MAP) Pulse Ox O2 Delivery O2 Flow Rate FiO2 03/05/18 17:51 98.6 79 16 136/78 (97) 100 Orders Orders Electrocardiogram (03/05/18 20:18) Complete Blood Count With Diff (03/05/18 20:18) Comprehensive Metabolic Panel (03/05/18 20:18) Troponin I (03/05/18 20:18) B-Type Natriuretic Peptide (03/05/18 20:18) Prothrombin Time / Inr (Pt) (03/05/18 20:18) Act Partial Throm Time (Ptt) (03/05/18 20:18) Ua Includes Microscopic (03/05/18 20:18) Chest, Single Ap (03/05/18 20:18) Iv Access Insert/Monitor (03/05/18 20:18) Ecg Monitoring (03/05/18 20:18) Wound Care (03/05/18 20:18) Lactic Acid (03/05/18 20:18) Furosemide Inj (Lasix Inj) (03/05/18 21:00) Ceftriaxone Inj (Rocephin Inj) (03/05/18 23:00) Consult Infectious Disease (03/05/18 ) Labs Laboratory Tests Test 03/05/18 20:45 03/05/18 20:50 White Blood Count 14.3 TH/MM3 Red Blood Count 4.22 MIL/MM3 Hemoglobin 13.1 GM/DL Hematocrit 38.5 % Mean Corpuscular Volume 91.3 FL Mean Corpuscular Hemoglobin 31.1 PG Mean Corpuscular Hemoglobin Concent 34.1 % Red Cell Distribution Width 14.6 % Platelet Count 274 TH/MM3 Mean Platelet Volume 7.7 FL Neutrophils (%) (Auto) 39.9 % Lymphocytes (%) (Auto) 16.4 % Monocytes (%) (Auto) 9.4 % Eosinophils (%) (Auto) 33.6 % Basophils (%) (Auto) 0.7 % Neutrophils # (Auto) 5.7 TH/MM3 Lymphocytes # (Auto) 2.3 TH/MM3 Monocytes # (Auto) 1.3 TH/MM3 Eosinophils # (Auto) 4.8 TH/MM3 Basophils # (Auto) 0.1 TH/MM3 CBC Comment DIFF FINAL Differential Comment Prothrombin Time 10.3 SEC Prothromb Time International Ratio 1.0 RATIO Activated Partial Thromboplast Time 26.4 SEC Blood Urea Nitrogen 18 MG/DL Creatinine 1.21 MG/DL Random Glucose 88 MG/DL Total Protein 7.7 GM/DL Albumin 3.6 GM/DL Calcium Level 8.8 MG/DL Alkaline Phosphatase 97 U/L Aspartate Amino Transf (AST/SGOT) 50 U/L Alanine Aminotransferase (ALT/SGPT) 37 U/L Total Bilirubin 0.4 MG/DL Sodium Level 136 MEQ/L Potassium Level 4.1 MEQ/L Chloride Level 102 MEQ/L Carbon Dioxide Level 23.0 MEQ/L Anion Gap 11 MEQ/L Estimat Glomerular Filtration Rate 43 ML/MIN Lactic Acid Level 1.1 mmol/L Troponin I LESS THAN 0.02 NG/ML B-Type Natriuretic Peptide 25 PG/ML Urine Color YELLOW Urine Turbidity CLEAR Urine pH 5.5 Urine Specific [place] 1.014 Urine Protein NEG mg/dL Urine Glucose (UA) NEG mg/dL Urine Ketones NEG mg/dL Urine Occult Blood NEG Urine Nitrite NEG Urine Bilirubin NEG Urine Urobilinogen LESS THAN 2.0 MG/DL Urine Leukocyte Esterase NEG Urine WBC LESS THAN 1 /hpf Urine Squamous Epithelial Cells <1 /hpf Urine Mucus FEW /lpf MDM Medical Decision Making Medical Screen Exam Complete: Yes Emergency Medical Condition: Yes Medical Record Reviewed: Yes Interpretation(s) Laboratory Tests Test 03/05/18 20:45 03/05/18 20:50 White Blood Count 14.3 TH/MM3 Red Blood Count 4.22 MIL/MM3 Hemoglobin 13.1 GM/DL Hematocrit 38.5 % Mean Corpuscular Volume 91.3 FL Mean Corpuscular Hemoglobin 31.1 PG Mean Corpuscular Hemoglobin Concent 34.1 % Red Cell Distribution Width 14.6 % Platelet Count 274 TH/MM3 Mean Platelet Volume 7.7 FL Neutrophils (%) (Auto) 39.9 % Lymphocytes (%) (Auto) 16.4 % Monocytes (%) (Auto) 9.4 % Eosinophils (%) (Auto) 33.6 % Basophils (%) (Auto) 0.7 % Neutrophils # (Auto) 5.7 TH/MM3 Lymphocytes # (Auto) 2.3 TH/MM3 Monocytes # (Auto) 1.3 TH/MM3 Eosinophils # (Auto) 4.8 TH/MM3 Basophils # (Auto) 0.1 TH/MM3 CBC Comment DIFF FINAL Differential Comment Prothrombin Time 10.3 SEC Prothromb Time International Ratio 1.0 RATIO Activated Partial Thromboplast Time 26.4 SEC Blood Urea Nitrogen 18 MG/DL Creatinine 1.21 MG/DL Random Glucose 88 MG/DL Total Protein 7.7 GM/DL Albumin 3.6 GM/DL Calcium Level 8.8 MG/DL Alkaline Phosphatase 97 U/L Aspartate Amino Transf (AST/SGOT) 50 U/L Alanine Aminotransferase (ALT/SGPT) 37 U/L Total Bilirubin 0.4 MG/DL Sodium Level 136 MEQ/L Potassium Level 4.1 MEQ/L Chloride Level 102 MEQ/L Carbon Dioxide Level 23.0 MEQ/L Anion Gap 11 MEQ/L Estimat Glomerular Filtration Rate 43 ML/MIN Lactic Acid Level 1.1 mmol/L Troponin I LESS THAN 0.02 NG/ML B-Type Natriuretic Peptide 25 PG/ML Urine Color YELLOW Urine Turbidity CLEAR Urine pH 5.5 Urine Specific [place] 1.014 Urine Protein NEG mg/dL Urine Glucose (UA) NEG mg/dL Urine Ketones NEG mg/dL Urine Occult Blood NEG Urine Nitrite NEG Urine Bilirubin NEG Urine Urobilinogen LESS THAN 2.0 MG/DL Urine Leukocyte Esterase NEG Urine WBC LESS THAN 1 /hpf Urine Squamous Epithelial Cells <1 /hpf Urine Mucus FEW /lpf Last 24 hours Impressions Chest X-Ray 03/05/182017 Signed Impressions: CONCLUSION: 1. No acute abnormality or significant interval change. Differential Diagnosis MDM: High Differential diagnosis: CHF, right-sided heart failure, PVD, electrolyte abnormality, anasarca, acute renal disease, acute exacerbation of chronic renal disease, infection, DVT, pemphigoid, autoimmune Narrative Course IV access is obtained. Patient will be given 40 mg of Lasix IV. Will obtain a chest x-ray, CBC, chemistry, BNP, troponin. Patient's wound will be cleansed and dressed. Pencil Doppler pulses have been performed. Patient's x-rays negative for acute failure. BNP is negative. Patient has a 14 ,000 white count with predominance of the symptoms. I spoke with Dr. Freeman who is agreed to admit the patient today. He is requested a consult by Dr. Finn. He would like to admit her for cellulitis and give her a gram Rocephin and he will go ahead and add in the initial admitting orders. Diagnosis Primary Impression: Cellulitis Additional Impression: Peripheral edema Condition: Stable Rupert Pryor March 05, 2018 20:41
[2018-03-05] MEDS ORDERED: FUROSEMIDE 40 MG/4 ML VIAL IV PUSH ONE (21:00)
[2018-03-05 21:03] LABS: BILIRUBIN, URINE NEG (NEG); BLOOD, URINE NEG (NEG); GLUCOSE,URINE NEG (NEG); KETONE, URINE NEG (NEG); MUCUS URINE FEW /lpf (OCC); NITRITE,URINE NEG (NEG); PH, URINE 5.5 (5.0-8.5); SQUAMOUS EPITHELIAL CELL URINE <1 /hpf (0-5); URINE COLOR YELLOW (YELLW/STRAW); URINE LEUKOCYTE ESTERASE NEG (NEG)
[2018-03-05 21:05] LABS: AUTOMATED NEUTROPHIL # 5.7 TH/MM3 (1.8-7.7); BASOPHIL # 0.1 TH/MM3 (0-0.2); BASOPHIL % 0.7 % (0.0-2.0); EOSINOPHIL # 4.8 TH/MM3 (0-0.4); EOSINOPHIL % 33.6 % (0.0-4.0); HEMATOCRIT 38.5 % (35.0-46.0); HEMOGLOBIN 13.1 GM/DL (11.6-15.3); LYMPH % 16.4 % (9.0-44.0); LYMPHOCYTE # 2.3 TH/MM3 (1.0-4.8); MEAN CELL VOLUME 91.3 FL (80.0-100.0); MEAN CORPUSCULAR HEMOGLOBIN 31.1 PG (27.0-34.0); MEAN CORPUSCULAR HGB CONC 34.1 % (32.0-36.0); MEAN PLATELET VOLUME 7.7 FL (7.0-11.0); MONO % 9.4 % (0.0-8.0); MONOCYTE # 1.3 TH/MM3 (0-0.9); NEUT % 39.9 % (16.0-70.0); PLATELET COUNT 274 TH/MM3 (150-450); RED BLOOD COUNT 4.22 MIL/MM3 (4.00-5.30); RED CELL DISTRIBUTION WIDTH 14.6 % (11.6-17.2); WHITE BLOOD COUNT 14.3 TH/MM3 (4.0-11.0)
[2018-03-05 21:18] LABS: PROTHROMBIN TIME - PATIENT 10.3 SEC (9.8-11.6)
[2018-03-05 21:33] LABS: ALBUMIN 3.6 GM/DL (3.4-5.0); AST (GOT) 50 U/L (15-37); BLOOD UREA NITROGEN 18 MG/DL (7-18); CALCIUM 8.8 MG/DL (8.5-10.1); CHLORIDE 102 MEQ/L (98-107); CREATININE 1.21 MG/DL (0.50-1.00); GLOMERULAR FILTRATION RATE 43 ML/MIN (>89); GLUCOSE,RANDOM 88 MG/DL (74-106); SODIUM (NA) 136 MEQ/L (136-145)
--- NOTE | 2018-03-05 21:34 | RADRPT ---
EXAM DATE: 03/05/2018 9:29 PM EDT AGE/SEX: 77 years / Female INDICATIONS: Shortness of breath- Wounds on legs. CLINICAL DATA: This is the patient's initial encounter. Patient reports that signs and symptoms have been present for 1 week and indicates a pain score of 0/10. MEDICAL/SURGICAL HISTORY: Hypercholesterolemia. Cerebrovascular accident. Bradycardia. Hyperten delmi. Restless leg syndrome. . Appendectomy. Cholecystectomy. Partial hysterectomy. COMPARISON: POI, XR CHEST PA AND LAT, 09/30/2017. . FINDINGS: No new focal pleural or parenchymal opacities. Cardiomediastinal contours are within normal limits gi adelita portable technique. Bony thorax is intact. CONCLUSION: 1. No acute abnormality or significant interval change. Electronically signed by: Levi Coronado MD 03/05/2018 9:32 PM EDT
[2018-03-05 21:35] LABS: ALT (GPT) 37 U/L (10-53)
[2018-03-05 21:39] LABS: ALKALINE PHOSPHATASE 97 U/L (45-117); TOTAL BILIRUBIN ADULT 0.4 MG/DL (0.2-1.0); TOTAL PROTEIN 7.7 GM/DL (6.4-8.2); TROPONIN I LESS THAN 0.02 NG/ML (0.02-0.05)
--- NOTE | 2018-03-05 22:49 | PD ---
Data Data Last Documented VS Vital Signs Date Time Temp Pulse Resp B/P (MAP) Pulse Ox O2 Delivery O2 Flow Rate FiO2 03/05/18 17:51 98.6 79 16 136/78 (97) 100 Orders Orders Electrocardiogram (03/05/18 20:18) Complete Blood Count With Diff (03/05/18 20:18) Comprehensive Metabolic Panel (03/05/18 20:18) Troponin I (03/05/18 20:18) B-Type Natriuretic Peptide (03/05/18 20:18) Prothrombin Time / Inr (Pt) (03/05/18 20:18) Act Partial Throm Time (Ptt) (03/05/18 20:18) Ua Includes Microscopic (03/05/18 20:18) Chest, Single Ap (03/05/18 20:18) Iv Access Insert/Monitor (03/05/18 20:18) Ecg Monitoring (03/05/18 20:18) Wound Care (03/05/18 20:18) Lactic Acid (03/05/18 20:18) Furosemide Inj (Lasix Inj) (03/05/18 21:00) Labs Laboratory Tests Test 03/05/18 20:45 03/05/18 20:50 White Blood Count 14.3 TH/MM3 Red Blood Count 4.22 MIL/MM3 Hemoglobin 13.1 GM/DL Hematocrit 38.5 % Mean Corpuscular Volume 91.3 FL Mean Corpuscular Hemoglobin 31.1 PG Mean Corpuscular Hemoglobin Concent 34.1 % Red Cell Distribution Width 14.6 % Platelet Count 274 TH/MM3 Mean Platelet Volume 7.7 FL Neutrophils (%) (Auto) 39.9 % Lymphocytes (%) (Auto) 16.4 % Monocytes (%) (Auto) 9.4 % Eosinophils (%) (Auto) 33.6 % Basophils (%) (Auto) 0.7 % Neutrophils # (Auto) 5.7 TH/MM3 Lymphocytes # (Auto) 2.3 TH/MM3 Monocytes # (Auto) 1.3 TH/MM3 Eosinophils # (Auto) 4.8 TH/MM3 Basophils # (Auto) 0.1 TH/MM3 CBC Comment DIFF FINAL Differential Comment Prothrombin Time 10.3 SEC Prothromb Time International Ratio 1.0 RATIO Activated Partial Thromboplast Time 26.4 SEC Blood Urea Nitrogen 18 MG/DL Creatinine 1.21 MG/DL Random Glucose 88 MG/DL Total Protein 7.7 GM/DL Albumin 3.6 GM/DL Calcium Level 8.8 MG/DL Alkaline Phosphatase 97 U/L Aspartate Amino Transf (AST/SGOT) 50 U/L Alanine Aminotransferase (ALT/SGPT) 37 U/L Total Bilirubin 0.4 MG/DL Sodium Level 136 MEQ/L Potassium Level 4.1 MEQ/L Chloride Level 102 MEQ/L Carbon Dioxide Level 23.0 MEQ/L Anion Gap 11 MEQ/L Estimat Glomerular Filtration Rate 43 ML/MIN Lactic Acid Level 1.1 mmol/L Troponin I LESS THAN 0.02 NG/ML B-Type Natriuretic Peptide 25 PG/ML Urine Color YELLOW Urine Turbidity CLEAR Urine pH 5.5 Urine Specific [place] 1.014 Urine Protein NEG mg/dL Urine Glucose (UA) NEG mg/dL Urine Ketones NEG mg/dL Urine Occult Blood NEG Urine Nitrite NEG Urine Bilirubin NEG Urine Urobilinogen LESS THAN 2.0 MG/DL Urine Leukocyte Esterase NEG Urine WBC LESS THAN 1 /hpf Urine Squamous Epithelial Cells <1 /hpf Urine Mucus FEW /lpf MDM Supervised Visit with DELIA: Yes Narrative Course I, Dr. Sotomayor, have reviewed the advance practice practitioner's documentation and am in agreement, met with the patient face to face, made the diagnosis, and the medical decision making was done by me. *My assessment and Findings: I have evaluated and discussed options with the patient. I am recommending admission. She is worsening despite treatment and is a failure of outpatient treatment. Exact etiology of her significant leg symptoms is unclear. I reviewed her workup. Elver discussed the case with Dr. Freeman who will admit Albaro Sotomayor MD March 05, 2018 22:49
[2018-03-05] MEDS ORDERED: cefTRIAXone INJ 1,000 MG in SODIUM CHLORIDE 0.9% INJ 100 ML IV ONE (23:00)
[2018-03-06] VITALS (24 sets, daily range): BP systolic 95–145; BP diastolic 50–66; PULSE 68–92; RESP 16–22; TEMP 97.8–98.6; O2SAT 96–99
[2018-03-06] MEDS ORDERED: ACETAMINOPHEN 325 MG TAB PO PRN (03:00)
[2018-03-06] MEDS ORDERED: LACTULOSE SYRUP 20 GM/30 ML CUP PO PRN (03:00)
[2018-03-06] MEDS ORDERED: MAGNESIUM HYDROXIDE SUSP 30 ML CUP PO PRN (03:00)
[2018-03-06] MEDS ORDERED: NALOXONE HCL 0.4 MG/ML AMP IV PUSH PRN (03:00)
[2018-03-06] MEDS ORDERED: SODIUM CHLORIDE 0.9% FLUSH 10 ML FLUSH IV FLUSH PRN (03:00)
[2018-03-06] MEDS ORDERED: SENNOSIDES 8.6 MG TAB PO PRN (03:00)
[2018-03-06] MEDS ORDERED: ALBUTEROL SULFATE 90 MCG/ACT HFA 8 GM INHALER INH PRN (03:00)
[2018-03-06] MEDS ORDERED: ONDANSETRON ODT 4 MG TAB PO PRN (03:00)
[2018-03-06] MEDS ORDERED: BISACODYL 10 MG SUPP RECTAL PRN (03:00)
[2018-03-06] MEDS: HEPARIN SODIUM - SQ 10,000 UNITS/ML VIAL SQ SCH ×2 (04:57→18:15)
[2018-03-06] MEDS: CEPHALEXIN MONOHYDRATE 500 MG CAP PO SCH ×2 (04:58→12:07)
[2018-03-06] MEDS: diphenhydrAMINE HCL 25 MG CAP PO PRN ×2 (05:40→12:07)
--- NOTE | 2018-03-06 08:43 | HHI.HP ---
History of Present Illness Primary Care Physician Ernesto Sanchez, DO Admission Diagnosis Cellulitis, peripheral edema Diagnoses: History of Present Illness Came to ER for increased LE edema and erythema. She was seen in ER 5 days ago given Lasix and Keflex, with no improvement with legs now draining. She complains of increased pain and difficulty ambulating. She clary fever, voices she has had some chills, No SOB, CP, NV or Diarrhea. Review of Systems Constitutional: COMPLAINS OF: Fatigue Cardiovascular: COMPLAINS OF: Lower Extremity Edema Integumentary: COMPLAINS OF: Rash Past Family Social History Allergies: Coded Allergies: No Known Allergies (Unverified Adverse Reaction, Unknown, 03/05/18) Past Medical History Cad Hld Cva HTN RLS Sleep Apnea Past Surgical History Appendectomy Hysterectomy Cholecystectomy Reported Medications Active Keflex (Cephalexin) 500 Mg Capsule 500 Mg PO Q6H 7 Days Lasix (Furosemide) 20 Mg Tab 20 Mg PO BID Aspirin 325 Mg Tab 325 Mg PO DAILY Atorvastatin (Atorvastatin Calcium) 20 Mg Tab 20 Mg PO HS Reported Lisinopril 10 Mg Tab 10 Mg PO DAILY Klor-Con 10 (Potassium Chloride) 10 Meq Tab 10 Meq PO DAILY Ventolin Hfa 18 GM Inh (Albuterol Sulfate) 90 Mcg/Act Aer 2 Puff INH Q6H PRN Ropinirole 0.25 Mg Tab 0.25 Mg PO TID Active Ordered Medications Current Medications Medications (Trade) Dose Ordered Sig/Tammy Route Start Time Stop Time Status Last Admin (Proair Hfa Inh) 2 puff Q6H PRN INH 03/06/18 03:00 (Aspirin) 325 mg DAILY PO 03/06/18 09:00 (Lipitor) 20 mg HS PO 03/06/18 21:00 (Keflex) 500 mg Q6H PO 03/06/18 06:00 03/06/18 04:58 (Lasix) 20 mg BID PO 03/06/18 09:00 (Prinivil) 10 mg DAILY PO 03/06/18 09:00 (KCl) 10 meq DAILY PO 03/06/18 09:00 (Requip) 0.25 mg TID PO 03/06/18 09:00 (NS Flush) 2 ml UNSCH PRN IV FLUSH 03/06/18 03:00 (NS Flush) 2 ml BID IV FLUSH 03/06/18 09:00 (Tylenol) 650 mg Q4H PRN PO 03/06/18 03:00 (Zofran Odt) 4 mg Q6H PRN PO 03/06/18 03:00 (Heparin Inj) 5,000 units Q12H SQ 03/06/18 06:00 03/06/18 04:57 (Narcan Inj) 0.4 mg UNSCH PRN IV PUSH 03/06/18 03:00 (Aster-Colace) 1 tab BID PO 03/06/18 09:00 (Milk Of Magnesia Liq) 30 ml Q12H PRN PO 03/06/18 03:00 (Senokot) 17.2 mg Q12H PRN PO 03/06/18 03:00 (Dulcolax Supp) 10 mg DAILY PRN RECTAL 03/06/18 03:00 (Lactulose Liq) 30 ml DAILY PRN PO 03/06/18 03:00 (Benadryl) 25 mg Q6H PRN PO 03/06/18 06:00 03/06/18 05:40 Social History Denies, ETOH, Tobacco, Substance abuse Physical Exam Vital Signs Vital Signs Date Time Temp Pulse Resp B/P (MAP) Pulse Ox O2 Delivery O2 Flow Rate FiO2 03/06/18 08:01 98.3 78 22 123/50 (74) 99 03/06/18 06:00 80 03/06/18 05:00 83 03/06/18 04:17 75 03/06/18 03:00 84 03/06/18 02:58 89 03/06/18 02:13 98.6 89 18 145/66 (92) 98 03/06/18 01:48 03/06/18 00:00 72 16 103/58 (73) 98 Room Air 03/05/18 20:30 79 16 122/70 (87) 97 Room Air 03/05/18 17:51 98.6 79 16 136/78 (97) 100 Physical Exam GENERAL: This is a well-nourished, well-developed patient, obese female. SKIN: warm dry, B/L erythema HEAD: Atraumatic. Normocephalic. EYES: Pupils equal round and reactive. ENT: Nose without bleeding, purulent drainage. Airway patent. NECK: Trachea midline. No JVD or lymphadenopathy. Supple, nontender, no meningeal signs. CARDIOVASCULAR: Regular rate and rhythm without murmurs, gallops, or rubs. RESPIRATORY: Clear to auscultation. Breath sounds equal bilaterally. No wheezes , rales, or rhonchi. GASTROINTESTINAL: Abdomen soft, non-tender, nondistended. No hepato-splenomegaly , or palpable masses. No guarding. MUSCULOSKELETAL: Extremities without clubbing, cyanosis, B/L LE edema. Negative Homans sign bilaterally. NEUROLOGICAL: Awake and alert. Normal speech Laboratory Laboratory Tests Test 03/05/18 20:45 03/05/18 20:50 White Blood Count 14.3 Red Blood Count 4.22 Hemoglobin 13.1 Hematocrit 38.5 Mean Corpuscular Volume 91.3 Mean Corpuscular Hemoglobin 31.1 Mean Corpuscular Hemoglobin Concent 34.1 Red Cell Distribution Width 14.6 Platelet Count 274 Mean Platelet Volume 7.7 Neutrophils (%) (Auto) 39.9 Lymphocytes (%) (Auto) 16.4 Monocytes (%) (Auto) 9.4 Eosinophils (%) (Auto) 33.6 Basophils (%) (Auto) 0.7 Neutrophils # (Auto) 5.7 Lymphocytes # (Auto) 2.3 Monocytes # (Auto) 1.3 Eosinophils # (Auto) 4.8 Basophils # (Auto) 0.1 CBC Comment DIFF FINAL Differential Comment Prothrombin Time 10.3 Prothromb Time International Ratio 1.0 Activated Partial Thromboplast Time 26.4 Blood Urea Nitrogen 18 Creatinine 1.21 Random Glucose 88 Total Protein 7.7 Albumin 3.6 Calcium Level 8.8 Alkaline Phosphatase 97 Aspartate Amino Transf (AST/SGOT) 50 Alanine Aminotransferase (ALT/SGPT) 37 Total Bilirubin 0.4 Sodium Level 136 Potassium Level 4.1 Chloride Level 102 Carbon Dioxide Level 23.0 Anion Gap 11 Estimat Glomerular Filtration Rate 43 Lactic Acid Level 1.1 Troponin I LESS THAN 0.02 B-Type Natriuretic Peptide 25 Urine Color YELLOW Urine Turbidity CLEAR Urine pH 5.5 Urine Specific [place] 1.014 Urine Protein NEG Urine Glucose (UA) NEG Urine Ketones NEG Urine Occult Blood NEG Urine Nitrite NEG Urine Bilirubin NEG Urine Urobilinogen LESS THAN 2.0 Urine Leukocyte Esterase NEG Urine WBC LESS THAN 1 Urine Squamous Epithelial Cells <1 Urine Mucus FEW Result Diagram: 03/05/18204403/05/182044 Imaging Last 24 hours Impressions Chest X-Ray 03/05/182017 Signed Impressions: CONCLUSION: 1. No acute abnormality or significant interval change. Caprini VTE Risk Assessment Caprini VTE Risk Assessment: Mod/High Risk (score >= 2) Caprini Risk Assessment Model Point Value = 1 Point Value = 2 Point Value = 3 Point Value = 5 Age 41-60 Minor surgery BMI > 25 kg/m2 Swollen legs Varicose veins or History of unexplained or recurrent spontaneous Oral contraceptives or hormone replacement Sepsis (< 1 month) Serious lung disease, including pneumonia (< 1 month) Abnormal pulmonary function Acute myocardial infarction Congestive heart failure (< 1 month) History of inflammatory bowel disease Medical patient at bed rest Age 61-74 Arthroscopic surgery Major open surgery (> 45 min) Laparoscopic surgery (> 45 min) Malignancy Confined to bed (> 72 hours) Immobilizing plaster cast Central venous access Age >= 75 History of VTE Family history of VTE Factor V Leiden Prothrombin [id number] Lupus anticoagulant Anticardiolipin antibodies Elevated serum homocysteine Heparin-induced thrombocytopenia Other congenital or acquired thrombophilia Stroke (< 1 month) Elective arthroplasty Hip, pelvis, or leg fracture Acute spinal cord injury (< 1 month) Prophylaxis Regimen Total Risk Factor Score Risk Level Prophylaxis Regimen 0-1 Low Early ambulation 2 Moderate Order ONE of the following: *Sequential Compression Device (SCD) *Heparin 5000 units SQ BID 3-4 Higher Order ONE of the following medications: *Heparin 5000 units SQ TID *Enoxaparin/Lovenox 40 mg SQ daily (WT < 150 kg, CrCl > 30 mL/min) *Enoxaparin/Lovenox 30 mg SQ daily (WT < 150 kg, CrCl > 10-29 mL/min) *Enoxaparin/Lovenox 30 mg SQ BID (WT < 150 kg, CrCl > 30 mL/min) AND/OR *Sequential Compression Device (SCD) 5 or more Highest Order ONE of the following medications: *Heparin 5000 units SQ TID (Preferred with Epidurals) *Enoxaparin/Lovenox 40 mg SQ daily (WT < 150 kg, CrCl > 30 mL/min) *Enoxaparin/Lovenox 30 mg SQ daily (WT < 150 kg, CrCl > 10-29 mL/min) *Enoxaparin/Lovenox 30 mg SQ BID (WT < 150 kg, CrCl > 30 mL/min) AND *Sequential Compression Device (SCD) Assessment and Plan Problem List: (1) Cellulitis ICD Codes: L03.90 - Cellulitis, unspecified Plan: wound care, ID consult (2) CASEY (acute kidney injury) ICD Codes: N17.9 - Acute kidney failure, unspecified Plan: Likely to Diuretics, Monitor Renal functions, avoid toxins (3) HTN (hypertension) ICD Codes: I10 - Essential (primary) hypertension Plan: Cont home medications, Monitor Maki Bah March 06, 2018 08:43
[2018-03-06] MEDS: DOCUSATE SODIUM 50 MG/SENNA 8.6 MG TAB PO SCH ×2 (09:00→21:00)
[2018-03-06] MEDS: SODIUM CHLORIDE 0.9% FLUSH 10 ML FLUSH IV FLUSH SCH ×2 (09:43→21:00)
[2018-03-06] MEDS: LISINOPRIL 10 MG TAB PO SCH (09:44)
[2018-03-06] MEDS: ASPIRIN 325 MG TAB PO SCH (09:44)
[2018-03-06] MEDS: FUROSEMIDE 20 MG TAB PO SCH ×2 (09:44→23:37)
[2018-03-06] MEDS: POTASSIUM CHLORIDE 10 MEQ CONTROLLED RELEASE TAB PO SCH (09:44)
[2018-03-06] MEDS: ACETAMINOPHEN/CODEINE 300 MG/30 MG TAB PO PRN (10:36)
--- NOTE | 2018-03-06 11:34 | PD.WCN.NOT ---
Wound Consult Description: Consult for WOUND MANAGEMENT of legs per Dr Sanchez Communicated with: HAFSA Goncalves RN Recommendation: Vascular studies to confirm/rule out intermittent claudication with Peripheral Arterial vs Peripheral Venous Disease Possible Unna boot application if MARILOU's are normal Leave bilateral legs open to air on ultrasorbs for now with cleansing daily with mild soap and water, pat dry. Additional Information: Patient seen on [facility] for "bilateral leg cellulitis" noted for admission diagnosis. Patient states that she just had a new pool put in right before all this rain started and that she has gone in the pool 3 times recently. She does state that her "all over rash" began after this. Patient bilateral legs noted with bright red shiny tight dry scaling skin with diffuse bullae from distal knees to toes +1 edema with non dependent and dependent rubor and tender to touch. Legs are noted with a warm skin temperature , neither hot nor cold to touch, unremarkable. Patient states that she has pain associated with beginning activity and with dangling legs with some relief when legs are elevated, however complains of restless leg syndrome when laying down. There are deflated and roofed bullae noted to bilateral medial and lateral pedals. Serous appearing drainage noted on ultrasorb underneath patient lower extremities. There is no active drainage and no odor coming from the deflated bullae. Plantar surfaces are unremarkable. Pedal pulses were not palpable and communicated to ALDEN Hearn. Ellie Gaming [facility] March 06, 2018 11:34
--- NOTE | 2018-03-06 13:09 | MB ---
cc: Artemio Terry MD DATE: 03/06/2018 REQUESTING PHYSICIAN: Dr. Sanchez REASON: Cellulitis versus autoimmune disease. Patient with bilateral lower extremity erythema. HISTORY OF PRESENT ILLNESS: This is a 77-year-old white female who presented to the Emergency Department with ongoing pedal edema and erythema of the legs. The patient was seen prior on 02/28/2018 for cellulitis of the legs and she was put on p.o. Keflex at the Emergency Department at [facility]. She states that this began with swelling of the legs the prior day and then she developed skin redness of the legs. She notes that she has had swelling of the legs before, but never redness along with it. The patient did not have improvement with Keflex and she presented again to the Emergency Department on 03/05/2018 with worsening edema. She also developed a rash of the upper extremities and now it is all over the trunk and back and thighs and extremities and it is accompanied by itching. She also reported weakness and difficulty ambulating over the past week. She denies fever, chills, nausea, vomiting, dysuria, shortness of breath, abdominal or joint pains. Chest x-ray was performed and showed no acute abnormality. White blood cell count is elevated at 14.3 and a differential on the CBC shows 33% eosinophils. Her creatinine is 1.21 and estimated GFR is 43. The patient states that she has not slept well over the past couple of days because of itching. She also notes that the skin started to weep fluid over the past few days. She denies prior similar occurrence in the past. PAST MEDICAL HISTORY: Coronary artery disease, hypertension, hyperlipidemia, restless leg syndrome, sleep apnea, CVA approximately 1 year ago without residual deficits, appendectomy, hysterectomy, cholecystectomy, sleep apnea. The patient denies contact of her legs with water recently, prior to the onset of this leg swelling and erythema. ALLERGIES: NO KNOWN DRUG ALLERGIES. MEDICATIONS: 1. Lipitor. 2. Tylenol with codeine p.r.n. 3. Aspirin. 4. Lasix. 5. Prinivil. 6. Potassium. 7. Aster-Colace. 8. Benadryl p.r.n. 9. Inhaled Albuterol. 10. Ceftriaxone dose was given yesterday evening. 11. Keflex. SOCIAL HISTORY: No tobacco, no alcohol, no illicit drugs. FAMILY HISTORY: Noncontributory. REVIEW OF SYSTEMS: Notable for fatigue, skin itching, weakness and edema of the legs. PHYSICAL EXAMINATION: GENERAL: This is a moderately obese female who is in no acute distress. She is awake and alert and oriented. VITAL SIGNS: Temperature 98.3, BP 123/50, heart rate 78, respirations 23. HEENT: Head is atraumatic. The right eyelid has edema at the upper and lower, no erythema. Extraocular movements are grossly intact. Pupils reactive to light; pupils are equal. No conjunctival erythema. No icterus. Oropharynx: Moist mucosa without lesions. NECK: Supple, no adenopathy. LUNGS: Clear breath sounds. HEART: Regular S1 and S2. No murmurs, rubs or gallops audible. ABDOMEN: Obese, soft, no tenderness appreciated. RECTAL: Not performed. EXTREMITIES: Both lower extremities erythematous and have lots of white pustules. The left great toe has a clear fluid filled blister at the dorsum. There is a pale discolored blister at the inner aspect of the right foot below the ankle. There is also a pale, white discolored blister at the lateral aspect of the left foot near the great toe base. A tiny ulcer with dried crater is also present at that location. The skin of the feet is dry and there are fissures of the skin at the foot, but the tibia is edematous. The entire foot is red as well. SKIN: Diffuse maculopapular rash involving the thighs, trunk, back, arms and neck and less pronounced at the face. NEUROLOGIC: No gross focal findings. PSYCHIATRIC: The patient is calm and cooperative. LABORATORY DATA: WBC 14.3, platelets 274, hemoglobin 13.1, 39% neutrophils, 16% lymphocytes, 9% monocytes, 33% eosinophils. Creatinine 1.21, BUN 18, sodium 136, AST 50, ALT 37. Chest x-ray showed no acute abnormality. IMPRESSION: 1. Cellulitis of the legs. 2. ALLERGIC DRUG RASH PROBABLY TO CEPHALOSPORIN. The patient has been receiving Keflex. 3. Acute kidney disease, stage III. RECOMMENDATIONS: 1. Discontinue Keflex. 2. Obtain a culture of one of the pustules of the leg. 3. Begin daptomycin IV. 4. Continue Benadryl for itching. 5. Obtain sedimentation rate and ROSALIND. 6. Monitor white blood cell count. 7. Follow clinical response. Thank you for this consultation. The patient's progress will be monitored and further recommendations will be given upon followup. MD BRYAN Steve/NEVA , 12:31 PM , 01:08 PM LIA
[2018-03-06] MEDS ORDERED: DAPTOmycin INJ 400 MG in SODIUM CHLORIDE 0.9% INJ 100 ML IV SCH (14:00)
[2018-03-06] MEDS: predniSONE 10 MG TAB PO SCH ×2 (15:47→18:14)
[2018-03-06] MEDS: hydrOXYzine HCL 25 MG TAB PO PRN ×2 (15:52→23:37)
[2018-03-06] MEDS: ATORVASTATIN 20 MG TAB PO SCH (23:37)
[2018-03-07] VITALS (24 sets, daily range): BP systolic 121–140; BP diastolic 46–77; PULSE 62–84; RESP 16–20; TEMP 97.5–98.5; O2SAT 95–99
[2018-03-07 06:52] LABS: AUTOMATED NEUTROPHIL # 6.2 TH/MM3 (1.8-7.7); BASOPHIL # 0.1 TH/MM3 (0-0.2); BASOPHIL % 0.9 % (0.0-2.0); EOSINOPHIL # 0.6 TH/MM3 (0-0.4); EOSINOPHIL % 6.7 % (0.0-4.0); HEMATOCRIT 35.5 % (35.0-46.0); LYMPHOCYTE # 1.4 TH/MM3 (1.0-4.8); MEAN CELL VOLUME 91.8 FL (80.0-100.0); MEAN CORPUSCULAR HGB CONC 33.8 % (32.0-36.0); MONOCYTE # 0.6 TH/MM3 (0-0.9); NEUT % 69.4 % (16.0-70.0); PLATELET COUNT 234 TH/MM3 (150-450); RED BLOOD COUNT 3.86 MIL/MM3 (4.00-5.30); WHITE BLOOD COUNT 8.9 TH/MM3 (4.0-11.0)
[2018-03-07 07:26] LABS: ALBUMIN 3.1 GM/DL (3.4-5.0); AST (GOT) 60 U/L (15-37); BICARBONATE 23.4 MEQ/L (21.0-32.0); BLOOD UREA NITROGEN 19 MG/DL (7-18); CALCIUM 8.3 MG/DL (8.5-10.1); CHLORIDE 103 MEQ/L (98-107); CREATININE 1.15 MG/DL (0.50-1.00); GLOMERULAR FILTRATION RATE 46 ML/MIN (>89); GLUCOSE,RANDOM 136 MG/DL (74-106); SODIUM (NA) 138 MEQ/L (136-145)
[2018-03-07 07:29] LABS: ALKALINE PHOSPHATASE 89 U/L (45-117); ALT (GPT) 39 U/L (10-53); TOTAL BILIRUBIN ADULT 0.2 MG/DL (0.2-1.0); TOTAL PROTEIN 6.8 GM/DL (6.4-8.2)
--- NOTE | 2018-03-07 08:14 | EKG ---
Date Performed: 03/05/2018 Time Performed: 21:17:10 PTAGE: 77 years EKG: Sinus rhythm LOW QRS VOLTAGE IN PRECORDIAL LEADS NONSPECIFIC ST & T-WAVE ABNORMALITY BORDERLINE ECG PREVIOUS TRACING : 02/08/2017 14.24 DOCTOR: Scarlett Dao Interpretating Date/Time 03/07/2018 08:12:14
[2018-03-07] MEDS: DOCUSATE SODIUM 50 MG/SENNA 8.6 MG TAB PO SCH ×2 (09:00→21:00)
[2018-03-07] MEDS: predniSONE 10 MG TAB PO SCH ×3 (09:22→17:17)
[2018-03-07] MEDS: HEPARIN SODIUM - SQ 10,000 UNITS/ML VIAL SQ SCH ×2 (09:22→17:18)
[2018-03-07] MEDS: hydrOXYzine HCL 25 MG TAB PO PRN ×3 (09:22→23:07)
[2018-03-07] MEDS: ASPIRIN 325 MG TAB PO SCH (09:22)
[2018-03-07] MEDS: SODIUM CHLORIDE 0.9% FLUSH 10 ML FLUSH IV FLUSH SCH ×2 (09:22→21:00)
[2018-03-07] MEDS: FUROSEMIDE 20 MG TAB PO SCH ×2 (09:23→21:01)
[2018-03-07] MEDS: LISINOPRIL 10 MG TAB PO SCH (09:23)
[2018-03-07] MEDS: POTASSIUM CHLORIDE 10 MEQ CONTROLLED RELEASE TAB PO SCH (09:23)
--- NOTE | 2018-03-07 09:23 | HHI.PR ---
Subjective Remarks C./O itching to body r/t urticaria VSS, afebrile. Objective Vital Signs Date Time Temp Pulse Resp B/P (MAP) Pulse Ox O2 Delivery O2 Flow Rate FiO2 03/07/18 07:30 98.5 73 18 125/46 (72) 95 03/07/18 06:00 80 03/07/18 05:00 72 03/07/18 04:00 71 18 95 03/07/18 03:00 68 03/07/18 02:00 68 03/07/18 01:00 72 03/07/18 00:00 80 03/07/18 00:00 80 16 96 03/06/18 23:00 78 03/06/18 22:00 68 03/06/18 21:00 72 03/06/18 21:00 80 16 110/64 (79) 97 03/06/18 21:00 80 03/06/18 19:00 72 03/06/18 18:00 76 03/06/18 17:00 72 03/06/18 16:00 72 03/06/18 15:00 68 03/06/18 15:00 97.8 69 18 95/50 (65) 98 03/06/18 14:00 74 03/06/18 13:00 70 03/06/18 12:00 68 03/06/18 11:42 18 03/06/18 11:00 98.3 76 18 109/56 (73) 96 03/06/18 11:00 73 03/06/18 10:00 82 I/O 03/06/18 03/06/18 03/06/18 03/07/18 03/07/18 03/07/18 07:00 15:00 23:00 07:00 15:00 23:00 Intake Total 480 ml 960 ml Output Total 525 ml 520 ml Balance -45 ml 440 ml Intake Oral 480 ml 960 ml Output Urine Total 525 ml 520 ml Result Diagram: 03/07/188 03/07/18507 Imaging Last 72 hours Impressions Chest X-Ray 03/05/182017 Signed Impressions: CONCLUSION: 1. No acute abnormality or significant interval change. Objective Remarks GENERAL: This is a well-nourished, well-developed patient, obese female. SKIN: warm dry, B/L erythema to B/L LE, rash to b/l eu and LE, with fluid filled pustule to LE HEAD: Atraumatic. Normocephalic. EYES: Pupils equal round and reactive. ENT:. Airway patent. NECK: Trachea midline. No JVD or lymphadenopathy. CARDIOVASCULAR: Regular rate and rhythm without murmurs, gallops, or rubs. RESPIRATORY: Clear to auscultation. Breath sounds equal bilaterally. No wheezes , rales, or rhonchi. GASTROINTESTINAL: Abdomen soft, non-tender, nondistended. MUSCULOSKELETAL: , B/L LE edema. Negative Homans sign bilaterally. NEUROLOGICAL: Awake and alert. Normal speech Medications and IVs Current Medications Medications (Trade) Dose Ordered Sig/Tammy Route Start Time Stop Time Status Last Admin (Proair Hfa Inh) 2 puff Q6H PRN INH 03/06/18 03:00 (Aspirin) 325 mg DAILY PO 03/06/18 09:00 03/06/18 09:44 (Lipitor) 20 mg HS PO 03/06/18 21:00 03/06/18 23:37 (Lasix) 20 mg BID PO 03/06/18 09:00 03/06/18 23:37 (Prinivil) 10 mg DAILY PO 03/06/18 09:00 03/06/18 09:44 (KCl) 10 meq DAILY PO 03/06/18 09:00 03/06/18 09:44 (Requip) 0.25 mg TID PO 03/06/18 09:00 03/06/18 18:15 (NS Flush) 2 ml UNSCH PRN IV FLUSH 03/06/18 03:00 (NS Flush) 2 ml BID IV FLUSH 03/06/18 09:00 03/06/18 21:00 (Tylenol) 650 mg Q4H PRN PO 03/06/18 03:00 (Zofran Odt) 4 mg Q6H PRN PO 03/06/18 03:00 (Heparin Inj) 5,000 units Q12H SQ 03/06/18 06:00 03/06/18 18:15 (Narcan Inj) 0.4 mg UNSCH PRN IV PUSH 03/06/18 03:00 (Aster-Colace) 1 tab BID PO 03/06/18 09:00 (Milk Of Magnesia Liq) 30 ml Q12H PRN PO 03/06/18 03:00 (Senokot) 17.2 mg Q12H PRN PO 03/06/18 03:00 (Dulcolax Supp) 10 mg DAILY PRN RECTAL 03/06/18 03:00 (Lactulose Liq) 30 ml DAILY PRN PO 03/06/18 03:00 (Tylenol-Codeine #3) 2 tab Q4H PRN PO 03/06/18 10:00 03/06/18 10:36 (Deltasone) 10 mg TID PO 03/06/18 15:00 03/06/18 18:14 (Atarax) 25 mg Q6H PRN PO 03/06/18 15:15 03/06/18 23:37 Assessment and Plan Problem List: (1) Cellulitis ICD Codes: L03.90 - Cellulitis, unspecified Plan: wound care, ID consult (2) CASEY (acute kidney injury) ICD Codes: N17.9 - Acute kidney failure, unspecified Plan: Likely to Diuretics, Monitor Renal functions, avoid toxins (3) HTN (hypertension) ICD Codes: I10 - Essential (primary) hypertension Plan: Cont home medications, Monitor Assessment and Plan 03/07/18- VSS afebrile. Kelex stopped, R/T Urticaria rash. ID consulted, wound culture pending. Daptomycin started. Patient c/o itchy skin, atarax helping Arterial study pending for claudication. ROSALIND, Sed rate pending. WBC 8.9. Cont to monitor progress. Maki Bah March 07, 2018 09:23
--- NOTE | 2018-03-07 11:16 | RADRPT ---
EXAM DATE: 03/07/2018 11:00 AM EDT AGE/SEX: 77 years / Female INDICATIONS: Cellulitis, Peripheral Edema CLINICAL DATA: This is the patient's initial encounter. Patient reports that signs and symptoms have been present for > 1 year and indicates a pain score of 8/10. MEDICAL/SURGICAL HISTORY: . Cellulitis, Peripheral Edema, CAD, Hypertension, Hyperlipidemia, Re stless Leg Syndrome, Sleep Apnea, CVA, Allergic Drug Rash, Acute Kidney Disease Stage 3 . Appendecto my, Hysterectomy, Cholecystectomy COMPARISON: No prior [facility] exams available for comparison. TECHNIQUE: Four-cuff ankle and brachial pressures were obtained. Pulse cuff waveform tracings of the ankles were recorded, and ankle-brachial indices were calculated. PRESSURES (mmHg): Brachial (arm) : RIGHT: IV SITE, LEFT: 108 Ankle : RIGHT: 109, LEFT: 78 MARILOU : RIGHT: 1.01, LEFT: 0.72 TBI : RIGHT: 0.44, LEFT: 0.47 PULSED CUFF WAVEFORMS: Demonstrate normal amplitude bilaterally. Mild to moderately decreased left l ower extremity MARILOU. Mildly decreased bilateral TBIs. CONCLUSION: 1. Findings consistent with mild left lower extremity peripheral arterial disease and bilateral smal l vessel disease. Electronically signed by: Levi Coronado MD 03/07/2018 11:14 AM EDT
--- NOTE | 2018-03-07 13:36 | HHI.IDPN ---
Note Infectious Disease Note Patient states that she continues to have severe itching of the skin. No fever. Denies chills. Has occasional pain in the in the legs. Daptomycin was discontinued by primary physician yesterday. Wound culture pending. 77-year-old white female who presented to the Emergency Department with ongoing pedal edema and erythema of the legs. The patient was seen prior on 02/28/2018 for cellulitis of the legs and she was put on p.o. Keflex at the Emergency Department at [facility]. She states that this began with swelling of the legs the prior day and then she developed skin redness of the legs. She notes that she has had swelling of the legs before, but never redness along with it. The patient did not have improvement with Keflex and she presented again to the Emergency Department on 03/05/2018 with worsening edema. She also developed a rash of the upper extremities and now it is all over the trunk and back and thighs and extremities and it is accompanied by itching. She also reported weakness and difficulty ambulating over the past week. She denies fever, chills, nausea, vomiting, dysuria, shortness of breath, abdominal or joint pains. PAST MEDICAL HISTORY: Coronary artery disease, hypertension, hyperlipidemia, restless leg syndrome, sleep apnea, CVA approximately 1 year ago without residual deficits, appendectomy, hysterectomy, cholecystectomy, sleep apnea. The patient denies contact of her legs with water recently, prior to the onset of this leg swelling and erythema. ALLERGIES: NO KNOWN DRUG ALLERGIES. Current Medications Medications (Trade) Dose Ordered Sig/Tammy Route PRN Reason Start Time Stop Time Status Last Admin Dose Admin Albuterol Sulfate (Proair Hfa Inh) 2 puff Q6H PRN INH SHORTNESS OF BREATH 03/06/18 03:00 Aspirin (Aspirin) 325 mg DAILY PO 03/06/18 09:00 03/07/18 09:22 Atorvastatin Calcium (Lipitor) 20 mg HS PO 03/06/18 21:00 03/06/18 23:37 Furosemide (Lasix) 20 mg BID PO 03/06/18 09:00 03/07/18 09:23 Lisinopril (Prinivil) 10 mg DAILY PO 03/06/18 09:00 03/07/18 09:23 Potassium Chloride (KCl) 10 meq DAILY PO 03/06/18 09:00 03/07/18 09:23 Ropinirole HCl (Requip) 0.25 mg TID PO 03/06/18 09:00 03/07/18 09:22 Sodium Chloride (NS Flush) 2 ml UNSCH PRN IV FLUSH FLUSH AFTER USING IV ACCESS 03/06/18 03:00 Sodium Chloride (NS Flush) 2 ml BID IV FLUSH 03/06/18 09:00 03/07/18 09:22 Acetaminophen (Tylenol) 650 mg Q4H PRN PO TEMP > 100.4 03/06/18 03:00 Ondansetron HCl (Zofran Odt) 4 mg Q6H PRN PO NAUSEA OR VOMITING 03/06/18 03:00 Heparin Sodium (Porcine) (Heparin Inj) 5,000 units Q12H SQ 03/06/18 06:00 03/07/18 09:22 Naloxone HCl (Narcan Inj) 0.4 mg UNSCH PRN IV PUSH SEE LABEL COMMENTS 03/06/18 03:00 Senna/Docusate Sodium (Aster-Colace) 1 tab BID PO 03/06/18 09:00 Magnesium Hydroxide (Milk Of Magnesia Liq) 30 ml Q12H PRN PO Mild constipation 03/06/18 03:00 Sennosides (Senokot) 17.2 mg Q12H PRN PO Moderate constipation 03/06/18 03:00 Bisacodyl (Dulcolax Supp) 10 mg DAILY PRN RECTAL SEVERE CONSITIPATION 03/06/18 03:00 Lactulose (Lactulose Liq) 30 ml DAILY PRN PO SEVERE CONSITIPATION 03/06/18 03:00 Acetaminophen/ Codeine Phosphate (Tylenol-Codeine #3) 2 tab Q4H PRN PO PAIN 03/06/18 10:00 03/06/18 10:36 Prednisone (Deltasone) 10 mg TID PO 03/06/18 15:00 03/07/18 09:22 Hydroxyzine HCl (Atarax) 25 mg Q6H PRN PO ITCHING 03/06/18 15:15 03/07/18 09:22 SOCIAL HISTORY: No tobacco, no alcohol, no illicit drugs. Objective: Vital Signs Date Time Temp Pulse Resp B/P (MAP) Pulse Ox O2 Delivery O2 Flow Rate FiO2 03/07/18 07:30 98.5 73 18 125/46 (72) 95 03/07/18 06:00 80 03/07/18 05:00 72 03/07/18 04:00 71 18 95 03/07/18 03:00 68 03/07/18 02:00 68 03/07/18 01:00 72 03/07/18 00:00 80 03/07/18 00:00 80 16 96 03/06/18 23:00 78 03/06/18 22:00 68 03/06/18 21:00 72 03/06/18 21:00 80 16 110/64 (79) 97 03/06/18 21:00 80 03/06/18 19:00 72 03/06/18 18:00 76 03/06/18 17:00 72 03/06/18 16:00 72 03/06/18 15:00 68 03/06/18 15:00 97.8 69 18 95/50 (65) 98 03/06/18 14:00 74 Laboratory Tests Test 03/05/18 20:45 03/07/18 05:08 White Blood Count 14.3 TH/MM3 8.9 TH/MM3 Red Blood Count 4.22 MIL/MM3 3.86 MIL/MM3 Hemoglobin 13.1 GM/DL 12.0 GM/DL Hematocrit 38.5 % 35.5 % Mean Corpuscular Volume 91.3 FL 91.8 FL Mean Corpuscular Hemoglobin 31.1 PG 31.0 PG Mean Corpuscular Hemoglobin Concent 34.1 % 33.8 % Red Cell Distribution Width 14.6 % 15.0 % Platelet Count 274 TH/MM3 234 TH/MM3 Mean Platelet Volume 7.7 FL 8.0 FL Neutrophils (%) (Auto) 39.9 % 69.4 % Lymphocytes (%) (Auto) 16.4 % 16.0 % Monocytes (%) (Auto) 9.4 % 7.0 % Eosinophils (%) (Auto) 33.6 % 6.7 % Basophils (%) (Auto) 0.7 % 0.9 % Neutrophils # (Auto) 5.7 TH/MM3 6.2 TH/MM3 Lymphocytes # (Auto) 2.3 TH/MM3 1.4 TH/MM3 Monocytes # (Auto) 1.3 TH/MM3 0.6 TH/MM3 Eosinophils # (Auto) 4.8 TH/MM3 0.6 TH/MM3 Basophils # (Auto) 0.1 TH/MM3 0.1 TH/MM3 CBC Comment DIFF FINAL DIFF FINAL Differential Comment Erythrocyte Sedimentation Rate 42 mm/hr Laboratory Tests Test 03/05/18 20:45 03/07/18 05:08 Blood Urea Nitrogen 18 MG/DL 19 MG/DL Creatinine 1.21 MG/DL 1.15 MG/DL Random Glucose 88 MG/DL 136 MG/DL Total Protein 7.7 GM/DL 6.8 GM/DL Albumin 3.6 GM/DL 3.1 GM/DL Calcium Level 8.8 MG/DL 8.3 MG/DL Alkaline Phosphatase 97 U/L 89 U/L Aspartate Amino Transf (AST/SGOT) 50 U/L 60 U/L Alanine Aminotransferase (ALT/SGPT) 37 U/L 39 U/L Total Bilirubin 0.4 MG/DL 0.2 MG/DL Sodium Level 136 MEQ/L 138 MEQ/L Potassium Level 4.1 MEQ/L 4.1 MEQ/L Chloride Level 102 MEQ/L 103 MEQ/L Carbon Dioxide Level 23.0 MEQ/L 23.4 MEQ/L Anion Gap 11 MEQ/L 12 MEQ/L Estimat Glomerular Filtration Rate 43 ML/MIN 46 ML/MIN Lactic Acid Level 1.1 mmol/L Troponin I LESS THAN 0.02 NG/ML B-Type Natriuretic Peptide 25 PG/ML Microbiology Date/Time Source Procedure Growth Status 03/06/18 12:00 Wound Leg Gram Stain - Final Resulted 03/06/18 12:00 Wound Leg Wound Culture Pending Resulted PHYSICAL EXAMINATION: GENERAL: No acute distress. She is awake and alert and oriented. HEENT: The right eyelid edema is improved. Extraocular movements are grossly intact. Pupils reactive to light; pupils are equal. No conjunctival erythema. No icterus. Oropharynx: Moist mucosa without lesions. NECK: Supple, no adenopathy. LUNGS: Clear breath sounds. HEART: Regular S1 and S2. No murmurs, rubs or gallops audible. ABDOMEN: Obese, soft, no tenderness appreciated. EXTREMITIES: Both lower extremities erythematous and have lots of white pustules. The left great toe has a clear fluid filled blister at the dorsum. There is a pale discolored blister at the inner aspect of the right foot below the ankle. There is also a pale, white discolored blister at the lateral aspect of the left foot near the great toe base. A tiny ulcer with dried crater is also present at that location. The skin of the feet is dry and there are fissures of the skin at the foot, but the tibia is edematous. The entire foot is red as well. SKIN: Diffuse maculopapular rash involving the thighs, trunk, back, arms and neck and less pronounced at the face. No improvement. NEUROLOGIC: No gross focal findings. PSYCHIATRIC: The patient is calm and cooperative. IMPRESSION: 1. Cellulitis of the legs. Wound culture pending. Per discussions with microbiology Preliminary culture has gram-negative leanna. 2. ALLERGIC DRUG RASH TO CEPHALOSPORIN. The patient was receiving Keflex. Eosinophilia improved. 3. Acute kidney disease, stage III. 4. Leukocytosis improved. RECOMMENDATIONS: 1. Begin oral ciprofloxacin 2. Continue Benadryl for itching. 3. Follow clinical response. 4. List allergy to cephalosporin on medical record. 5. Monitor wound culture. Artemio Terry MD March 07, 2018 13:36
[2018-03-07] MEDS: CIPROFLOXACIN 250 MG TAB PO SCH ×2 (16:39→21:00)
[2018-03-07] MEDS: ATORVASTATIN 20 MG TAB PO SCH (21:01)
[2018-03-08] VITALS (21 sets, daily range): BP systolic 104–157; BP diastolic 51–86; PULSE 62–85; RESP 16–18; TEMP 97.7–98.2; O2SAT 96–100
[2018-03-08] MEDS: ACETAMINOPHEN/CODEINE 300 MG/30 MG TAB PO PRN (03:51)
[2018-03-08] MEDS: HEPARIN SODIUM - SQ 10,000 UNITS/ML VIAL SQ SCH ×2 (05:49→17:16)
[2018-03-08] MEDS: hydrOXYzine HCL 25 MG TAB PO PRN ×3 (05:52→17:15)
--- NOTE | 2018-03-08 08:15 | HHI.PR ---
Subjective Remarks pt rash has worsened keflex and cephalosporinds are dcd will dc lipitor and codeine as these could also be a contributator also increase prednisone Objective Vital Signs Date Time Temp Pulse Resp B/P (MAP) Pulse Ox O2 Delivery O2 Flow Rate FiO2 03/08/18 06:00 82 03/08/18 05:08 74 16 133/81 (98) 100 03/08/18 05:00 72 03/08/18 04:00 82 03/08/18 03:00 85 03/08/18 02:00 64 03/08/18 01:00 62 03/08/18 00:00 80 03/07/18 23:00 75 18 129/75 (93) 98 03/07/18 23:00 83 03/07/18 22:00 80 03/07/18 21:00 76 03/07/18 20:00 76 03/07/18 19:00 72 03/07/18 19:00 98.4 67 16 140/77 (98) 99 03/07/18 18:00 62 03/07/18 17:00 74 03/07/18 16:00 84 03/07/18 15:00 98.1 71 20 123/68 (86) 98 03/07/18 15:00 74 03/07/18 14:00 74 03/07/18 13:00 70 03/07/18 12:00 74 03/07/18 11:00 78 03/07/18 11:00 97.5 74 18 121/75 (90) 99 03/07/18 10:00 80 03/07/18 09:00 78 I/O 03/07/18 03/07/18 03/07/18 03/08/18 03/08/18 03/08/18 07:00 15:00 23:00 07:00 15:00 23:00 Intake Total 100 ml 700 ml 360 ml Output Total 900 ml 1150 ml Balance -900 ml 100 ml 700 ml -790 ml Intake Oral 700 ml 360 ml IV Total 100 ml Output Urine Total 900 ml 1150 ml # Voids 2 # Bowel Movements 1 0 Result Diagram: 03/07/18 0508 03/07/18 0508 Imaging Last Impressions Extremity Arterial Study 03/06/18 0000 Signed Impressions: CONCLUSION: 1. Findings consistent with mild left lower extremity peripheral arterial dise ase and bilateral small vessel disease. Chest X-Ray 03/05/182017 Signed Impressions: CONCLUSION: 1. No acute abnormality or significant interval change. Objective Remarks GENERAL: Well-nourished, well-developed patient. SKIN: Warm and dry. HEAD: Normocephalic. EYES: No scleral icterus. No injection or drainage. NECK: Supple, trachea midline. No JVD or lymphadenopathy. CARDIOVASCULAR: Regular rate and rhythm without murmurs, gallops, or rubs. RESPIRATORY: Breath sounds equal bilaterally. No accessory muscle use. GASTROINTESTINAL: Abdomen soft,morbidly obese non-tender, nondistended. EXTREMITIES: No cyanosis, 3 plus edema and erythema with peeling skin and weeping lesions. NEUROLOGICAL: Awake, alert, and oriented x 3. Non-focal. Medications and IVs Inpatient Medications Acetaminophen (Tylenol) 650 mg Q4H PRN PO TEMP > 100.4; Start 03/06/18 at 03:00 Acetaminophen/ Codeine Phosphate (Tylenol-Codeine #3) 2 tab Q4H PRN PO PAIN Last administered on 03/08/18at 03:51; Start 03/06/18 at 10:00 Albuterol Sulfate (Proair Hfa Inh) 2 puff Q6H PRN INH SHORTNESS OF BREATH; Start 03/06/18 at 03:00 Aspirin (Aspirin) 325 mg DAILY PO Last administered on 03/07/18at 09:22; Start 03/06/18 at 09:00 Atorvastatin Calcium (Lipitor) 20 mg HS PO Last administered on 03/07/18at 21:01 ; Start 03/06/18 at 21:00 Bisacodyl (Dulcolax Supp) 10 mg DAILY PRN RECTAL SEVERE CONSITIPATION; Start at 03:00 Ceftriaxone Sodium 1000 mg/ Sodium Chloride 100 ml @ 200 mls/hr ONCE ONCE IV Last administered on 03/05/18at 23:04; Start 03/05/18 at 23:00; Stop 03/05/18 at 23:29; Status DC Cephalexin Monohydrate (Keflex) 500 mg Q6H PO Last administered on 03/06/18at 12 :07; Start 03/06/18 at 06:00; Stop 03/06/18 at 12:14; Status DC Ciprofloxacin (Cipro) 250 mg Q12HR PO Last administered on 03/07/18at 16:39; Start 03/07/18 at 15:00 Daptomycin 400 mg/ Sodium Chloride 100 ml @ 200 mls/hr Q24H IV Last administered on 03/06/18at 14:50; Start 03/06/18 at 14:00; Stop 03/06/18 at 18:36 ; Status DC Diphenhydramine HCl (Benadryl) 25 mg Q6H PRN PO ITCHING Last administered on at 12:07; Start 03/06/18 at 06:00; Stop 03/06/18 at 15:01; Status DC Furosemide (Lasix Inj) 40 mg ONCE ONCE IV PUSH Last administered on 03/05/18at 21:04; Start 03/05/18 at 21:00; Stop 03/05/18 at 21:01; Status DC Furosemide (Lasix) 20 mg BID PO Last administered on 03/07/18at 21:01; Start at 09:00 Heparin Sodium (Porcine) (Heparin Inj) 5,000 units Q12H SQ Last administered on 03/08/18at 05:49; Start 03/06/18 at 06:00 Hydroxyzine HCl (Atarax) 25 mg Q6H PRN PO ITCHING Last administered on at 05:52; Start 03/06/18 at 15:15 Lactulose (Lactulose Liq) 30 ml DAILY PRN PO SEVERE CONSITIPATION; Start at 03:00 Lisinopril (Prinivil) 10 mg DAILY PO Last administered on 03/07/18at 09:23; Start 03/06/18 at 09:00 Magnesium Hydroxide (Milk Of Magnesia Liq) 30 ml Q12H PRN PO Mild constipation ; Start 03/06/18 at 03:00 Naloxone HCl (Narcan Inj) 0.4 mg UNSCH PRN IV PUSH SEE LABEL COMMENTS; Start at 03:00 Ondansetron HCl (Zofran Odt) 4 mg Q6H PRN PO NAUSEA OR VOMITING; Start at 03:00 Potassium Chloride (KCl) 10 meq DAILY PO Last administered on 03/07/18at 09:23; Start 03/06/18 at 09:00 Prednisone (Deltasone) 10 mg TID PO Last administered on 03/07/18 17:17; Start 03/06/18 at 15:00 Ropinirole HCl (Requip) 0.25 mg TID PO Last administered on 03/07/18at 17:18; Start 03/06/18 at 09:00 Senna/Docusate Sodium (Aster-Colace) 1 tab BID PO ; Start 03/06/18 at 09:00 Sennosides (Senokot) 17.2 mg Q12H PRN PO Moderate constipation; Start 03/06/18 at 03:00 Sodium Chloride (NS Flush) 2 ml BID IV FLUSH Last administered on 03/07/18at 21: 00; Start 03/06/18 at 09:00 Assessment and Plan Assessment and Plan urticaria increase prednisone dc non essential meds celluitis ID following culktures pending Edema increase diuresis follow Ernesto Villalobos DO March 08, 2018 08:15
[2018-03-08] MEDS: predniSONE 20 MG TAB PO SCH ×3 (08:37→17:15)
[2018-03-08] MEDS: CIPROFLOXACIN 250 MG TAB PO SCH ×2 (08:37→20:32)
[2018-03-08] MEDS: ASPIRIN 325 MG TAB PO SCH (08:37)
[2018-03-08] MEDS: POTASSIUM CHLORIDE 10 MEQ CONTROLLED RELEASE TAB PO SCH (08:37)
[2018-03-08] MEDS: FUROSEMIDE 40 MG TAB PO SCH ×2 (08:37→08:40)
[2018-03-08] MEDS: LISINOPRIL 10 MG TAB PO SCH (08:37)
[2018-03-08] MEDS: DOCUSATE SODIUM 50 MG/SENNA 8.6 MG TAB PO SCH ×2 (08:38→20:32)
[2018-03-08] MEDS: SODIUM CHLORIDE 0.9% FLUSH 10 ML FLUSH IV FLUSH SCH ×2 (08:38→20:32)
--- NOTE | 2018-03-08 13:08 | PD.CONS ---
HPI Service Nephrology Consult Requested By Dr. Sanchez Reason for Consult Acute renal failure Primary Care Physician Ernesto Sanchez, DO History of Present Illness Patient is a 77-year-old white female with history of hypertension stated that she has CVA about 1 year ago, ever since then she has peripheral edema and now has a skin condition she gets rash both lower and upper extremity, he states he is taking aspirin 325 mg daily and occasionally takes Aleve for pain, she takes diuretic, she was given Keflex for possible infection and he has been admitted as her condition did not improve, her baseline creatinine 0.9 and creatinine was 1.2 was declined to 1.1. Patient declined having any kidney issues or urinary tract infection or kidney stones, there is no family history of kidney disease. She reports a rash involving her legs from upper extremities since she had a stroke. Review of Systems Constitutional: COMPLAINS OF: Fatigue Cardiovascular: COMPLAINS OF: Lower Extremity Edema Immunologic/allergic: COMPLAINS OF: Eczema, Urticaria Psychiatric: COMPLAINS OF: Anxiety Past Family Social History Allergies: Coded Allergies: Cephalosporins (Verified Allergy, Severe, severe skin rash, itching, ) Past Medical History History of skin rash CVA Hypertension Hyperlipidemia Coronary artery disease Restless leg syndrome Past Surgical History Appendectomy Hysterectomy Cholecystectomy Reported Medications Reported Meds & Active Scripts Active Keflex (Cephalexin) 500 Mg Capsule 500 Mg PO Q6H 7 Days Lasix (Furosemide) 20 Mg Tab 20 Mg PO BID Aspirin 325 Mg Tab 325 Mg PO DAILY Atorvastatin (Atorvastatin Calcium) 20 Mg Tab 20 Mg PO HS Reported Lisinopril 10 Mg Tab 10 Mg PO DAILY Klor-Con 10 (Potassium Chloride) 10 Meq Tab 10 Meq PO DAILY Ventolin Hfa 18 GM Inh (Albuterol Sulfate) 90 Mcg/Act Aer 2 Puff INH Q6H PRN Ropinirole 0.25 Mg Tab 0.25 Mg PO TID Active Ordered Medications Current Medications Medications (Trade) Dose Ordered Sig/Tammy Route Start Time Stop Time Status Last Admin (Proair Hfa Inh) 2 puff Q6H PRN INH 03/06/18 03:00 (Aspirin) 325 mg DAILY PO 03/06/18 09:00 03/08/18 08:37 (Prinivil) 10 mg DAILY PO 03/06/18 09:00 03/08/18 08:37 (KCl) 10 meq DAILY PO 03/06/18 09:00 03/08/18 08:37 (Requip) 0.25 mg TID PO 03/06/18 09:00 03/08/18 12:01 (NS Flush) 2 ml UNSCH PRN IV FLUSH 03/06/18 03:00 (NS Flush) 2 ml BID IV FLUSH 03/06/18 09:00 03/08/18 08:38 (Tylenol) 650 mg Q4H PRN PO 03/06/18 03:00 (Zofran Odt) 4 mg Q6H PRN PO 03/06/18 03:00 (Heparin Inj) 5,000 units Q12H SQ 03/06/18 06:00 03/08/18 05:49 (Narcan Inj) 0.4 mg UNSCH PRN IV PUSH 03/06/18 03:00 (Aster-Colace) 1 tab BID PO 03/06/18 09:00 (Milk Of Magnesia Liq) 30 ml Q12H PRN PO 03/06/18 03:00 (Senokot) 17.2 mg Q12H PRN PO 03/06/18 03:00 (Dulcolax Supp) 10 mg DAILY PRN RECTAL 03/06/18 03:00 (Lactulose Liq) 30 ml DAILY PRN PO 03/06/18 03:00 (Atarax) 25 mg Q6H PRN PO 03/06/18 15:15 03/08/18 12:01 (Cipro) 250 mg Q12HR PO 03/07/18 15:00 03/08/18 08:37 (Lasix) 40 mg BID PO 03/08/18 08:15 03/08/18 08:37 (Deltasone) 20 mg TID PO 03/08/18 09:00 03/08/18 12:01 Family History Noncontributory Social History Denies smoking or alcohol use Physical Exam Vital Signs Vital Signs Date Time Temp Pulse Resp B/P (MAP) Pulse Ox O2 Delivery O2 Flow Rate FiO2 03/08/18 12:00 97.9 70 16 126/71 (89) 97 03/08/18 12:00 66 03/08/18 11:00 68 03/08/18 10:00 78 03/08/18 09:00 80 03/08/18 08:00 98.2 75 16 157/86 (109) 99 03/08/18 08:00 72 03/08/18 07:00 74 03/08/18 06:00 82 03/08/18 05:08 74 16 133/81 (98) 100 03/08/18 05:00 72 03/08/18 04:00 82 03/08/18 03:00 85 03/08/18 02:00 64 03/08/18 01:00 62 03/08/18 00:00 80 03/07/18 23:00 75 18 129/75 (93) 98 03/07/18 23:00 83 03/07/18 22:00 80 03/07/18 21:00 76 03/07/18 20:00 76 03/07/18 19:00 72 03/07/18 19:00 98.4 67 16 140/77 (98) 99 03/07/18 18:00 62 03/07/18 17:00 74 03/07/18 16:00 84 03/07/18 15:00 98.1 71 20 123/68 (86) 98 03/07/18 15:00 74 03/07/18 14:00 74 03/07/18 13:00 70 Physical Exam GENERAL: Well-nourished, well-developed patient. SKIN: Warm and dry. HEAD: Normocephalic. EYES: No scleral icterus. No injection or drainage. NECK: Supple, trachea midline. No JVD or lymphadenopathy. CARDIOVASCULAR: Regular rate and rhythm without murmurs, gallops, or rubs. RESPIRATORY: Breath sounds equal bilaterally. No accessory muscle use. GASTROINTESTINAL: Abdomen soft, non-tender, nondistended. EXTREMITIES: No cyanosis, 2+ edema. Diffuse rash and lower and upper extremity NEUROLOGICAL: Awake, alert, and oriented x 3. Non-focal. Laboratory Laboratory Tests Test 03/08/18 04:49 Date/Time Source Procedure Growth Status 03/06/18 12:00 Wound Leg Gram Stain - Final Resulted 03/06/18 12:00 Wound Culture - Preliminary Gram Negative Thomas Gram Positive Cocci Resulted Result Diagram: 03/07/18 0508 03/07/18 0508 Imaging Last Impressions Extremity Arterial Study 03/06/18 0000 Signed Impressions: CONCLUSION: 1. Findings consistent with mild left lower extremity peripheral arterial dise ase and bilateral small vessel disease. Chest X-Ray 03/05/182017 Signed Impressions: CONCLUSION: 1. No acute abnormality or significant interval change. Assessment and Plan Problem List: (1) CASEY (acute kidney injury) ICD Codes: N17.9 - Acute kidney failure, unspecified Plan: Patient has baseline creatinine of 0.9 earlier this month and now the creatinine is higher he has prerenal azotemia due to underlying skin Infectious disease requiring antibiotic Encourage her to drink water Patient is on high-dose Lasix which can contribute to prerenal azotemia Decrease Lasix to 40 mg daily He has a allergic reaction to medication? causing rash and swelling, this is evident and productive with eosinophilia 33% at time of admission I will suggest to hold atorvastatin check CPK She did not appears to have any proteinuria on urine exam This can be followed up as outpatient (2) HTN (hypertension) ICD Codes: I10 - Essential (primary) hypertension Plan: Continue to monitor (3) Cellulitis ICD Codes: L03.90 - Cellulitis, unspecified Plan: ID is following gram-negative and leg wound Problem Qualifiers (1) HTN (hypertension): Qualified Codes: I10 - Essential (primary) hypertension Caren Ryder MD March 08, 2018 13:08
[2018-03-09] VITALS (24 sets, daily range): BP systolic 109–157; BP diastolic 51–84; PULSE 52–88; RESP 16; TEMP 97.5–97.8; O2SAT 96–100
[2018-03-09] MEDS: hydrOXYzine HCL 25 MG TAB PO PRN ×4 (00:26→20:15)
[2018-03-09 05:48] LABS: AUTOMATED NEUTROPHIL # 10.7 TH/MM3 (1.8-7.7); BASOPHIL # 0.1 TH/MM3 (0-0.2); BASOPHIL % 0.5 % (0.0-2.0); EOSINOPHIL # 0.1 TH/MM3 (0-0.4); EOSINOPHIL % 0.4 % (0.0-4.0); HEMATOCRIT 36.8 % (35.0-46.0); HEMOGLOBIN 12.5 GM/DL (11.6-15.3); LYMPH % 15.6 % (9.0-44.0); LYMPHOCYTE # 2.1 TH/MM3 (1.0-4.8); MEAN CELL VOLUME 91.3 FL (80.0-100.0); MEAN CORPUSCULAR HEMOGLOBIN 31.1 PG (27.0-34.0); MEAN PLATELET VOLUME 8.1 FL (7.0-11.0); MONO % 5.6 % (0.0-8.0); MONOCYTE # 0.8 TH/MM3 (0-0.9); NEUT % 77.9 % (16.0-70.0); PLATELET COUNT 268 TH/MM3 (150-450); RED BLOOD COUNT 4.03 MIL/MM3 (4.00-5.30); WHITE BLOOD COUNT 13.7 TH/MM3 (4.0-11.0)
[2018-03-09 05:53] LABS: BICARBONATE 23.4 MEQ/L (21.0-32.0); CALCIUM 8.7 MG/DL (8.5-10.1); CREATININE 1.09 MG/DL (0.50-1.00)
[2018-03-09] MEDS: HEPARIN SODIUM - SQ 10,000 UNITS/ML VIAL SQ SCH ×2 (06:00→17:54)
--- NOTE | 2018-03-09 08:54 | HHI.IDPN ---
Note Infectious Disease Note ID COVERAGE Notes reviewed Skin feels better. No fever. Denies chills. Has occasional pain in the in the legs. Wound C/S Enterobacter and Enterococcus 77-year-old white female who presented to the Emergency Department with ongoing pedal edema and erythema of the legs. The patient was seen prior on 02/28/2018 for cellulitis of the legs and she was put on p.o. Keflex at the Emergency Department at [facility]. She states that this began with swelling of the legs the prior day and then she developed skin redness of the legs. She notes that she has had swelling of the legs before, but never redness along with it. The patient did not have improvement with Keflex and she presented again to the Emergency Department on 03/05/2018 with worsening edema. She also developed a rash of the upper extremities and now it is all over the trunk and back and thighs and extremities and it is accompanied by itching. She also reported weakness and difficulty ambulating over the past week. She denies fever, chills, nausea, vomiting, dysuria, shortness of breath, abdominal or joint pains. PAST HISTORY: Coronary artery disease, hypertension, hyperlipidemia, restless leg syndrome, sleep apnea, CVA approximately 1 year ago without residual deficits, appendectomy, hysterectomy, cholecystectomy, sleep apnea. The patient denies contact of her legs with water recently, prior to the onset of this leg swelling and erythema. ALLERGIES: Cephalosporins Current Medications Medications (Trade) Dose Ordered Sig/Tammy Route Start Time Stop Time Status Last Admin (Proair Hfa Inh) 2 puff Q6H PRN INH 03/06/18 03:00 (Aspirin) 325 mg DAILY PO 03/06/18 09:00 03/08/18 08:37 (Prinivil) 10 mg DAILY PO 03/06/18 09:00 03/08/18 08:37 (KCl) 10 meq DAILY PO 03/06/18 09:00 03/08/18 08:37 (Requip) 0.25 mg TID PO 03/06/18 09:00 03/08/18 17:15 (NS Flush) 2 ml UNSCH PRN IV FLUSH 03/06/18 03:00 (NS Flush) 2 ml BID IV FLUSH 03/06/18 09:00 03/08/18 20:32 (Tylenol) 650 mg Q4H PRN PO 03/06/18 03:00 (Zofran Odt) 4 mg Q6H PRN PO 03/06/18 03:00 (Heparin Inj) 5,000 units Q12H SQ 03/06/18 06:00 03/09/18 06:00 (Narcan Inj) 0.4 mg UNSCH PRN IV PUSH 03/06/18 03:00 (Aster-Colace) 1 tab BID PO 03/06/18 09:00 (Milk Of Magnesia Liq) 30 ml Q12H PRN PO 03/06/18 03:00 (Senokot) 17.2 mg Q12H PRN PO 03/06/18 03:00 (Dulcolax Supp) 10 mg DAILY PRN RECTAL 03/06/18 03:00 (Lactulose Liq) 30 ml DAILY PRN PO 03/06/18 03:00 (Atarax) 25 mg Q6H PRN PO 03/06/18 15:15 03/09/18 07:37 (Cipro) 250 mg Q12HR PO 03/07/18 15:00 03/08/18 20:32 (Deltasone) 20 mg TID PO 03/08/18 09:00 03/08/18 17:15 (Lasix) 40 mg DAILY PO 03/09/18 09:00 SOCIAL HISTORY: No tobacco, no alcohol, no illicit drugs. Objective: Vital Signs Date Time Temp Pulse Resp B/P (MAP) Pulse Ox O2 Delivery O2 Flow Rate FiO2 03/09/18 08:18 64 16 157/84 (108) 100 03/09/18 05:46 59 16 138/69 (92) 96 03/09/18 05:46 65 03/09/18 00:00 68 16 154/83 (106) 100 03/09/18 00:00 81 03/08/18 20:30 75 03/08/18 20:30 97.8 74 16 132/59 (83) 97 03/08/18 18:00 82 03/08/18 17:00 76 03/08/18 16:00 97.7 80 18 104/51 (68) 96 03/08/18 16:00 76 03/08/18 15:00 82 03/08/18 14:00 62 03/08/18 13:00 70 03/08/18 12:00 97.9 70 16 126/71 (89) 97 03/08/18 12:00 66 03/08/18 11:00 68 03/08/18 10:00 78 03/08/18 09:00 80 Laboratory Tests Test 03/09/18 04:49 White Blood Count 13.7 TH/MM3 Red Blood Count 4.03 MIL/MM3 Hemoglobin 12.5 GM/DL Hematocrit 36.8 % Mean Corpuscular Volume 91.3 FL Mean Corpuscular Hemoglobin 31.1 PG Mean Corpuscular Hemoglobin Concent 34.0 % Red Cell Distribution Width 15.0 % Platelet Count 268 TH/MM3 Mean Platelet Volume 8.1 FL Neutrophils (%) (Auto) 77.9 % Lymphocytes (%) (Auto) 15.6 % Monocytes (%) (Auto) 5.6 % Eosinophils (%) (Auto) 0.4 % Basophils (%) (Auto) 0.5 % Neutrophils # (Auto) 10.7 TH/MM3 Lymphocytes # (Auto) 2.1 TH/MM3 Monocytes # (Auto) 0.8 TH/MM3 Eosinophils # (Auto) 0.1 TH/MM3 Basophils # (Auto) 0.1 TH/MM3 CBC Comment DIFF FINAL Differential Comment Hematology Comments Laboratory Tests Test 03/09/18 04:49 Blood Urea Nitrogen 20 MG/DL Creatinine 1.09 MG/DL Random Glucose 134 MG/DL Calcium Level 8.7 MG/DL Sodium Level 140 MEQ/L Potassium Level 4.4 MEQ/L Chloride Level 106 MEQ/L Carbon Dioxide Level 23.4 MEQ/L Anion Gap 11 MEQ/L Estimat Glomerular Filtration Rate 49 ML/MIN Total Creatine Kinase 571 U/L Creatine Kinase MB 11.8 NG/ML Creatine Kinase MB % 2.1 % B-Type Natriuretic Peptide 134 PG/ML Microbiology Date/Time Source Procedure Growth Status 03/06/18 12:00 Wound Leg Gram Stain - Final Complete 03/06/18 12:00 Wound Culture - Final Enterobacter Cloacae Enterococcus Faecalis Complete Laboratory Tests Test 03/05/18 20:45 03/07/18 05:08 White Blood Count 14.3 TH/MM3 8.9 TH/MM3 Red Blood Count 4.22 MIL/MM3 3.86 MIL/MM3 Hemoglobin 13.1 GM/DL 12.0 GM/DL Hematocrit 38.5 % 35.5 % Mean Corpuscular Volume 91.3 FL 91.8 FL Mean Corpuscular Hemoglobin 31.1 PG 31.0 PG Mean Corpuscular Hemoglobin Concent 34.1 % 33.8 % Red Cell Distribution Width 14.6 % 15.0 % Platelet Count 274 TH/MM3 234 TH/MM3 Mean Platelet Volume 7.7 FL 8.0 FL Neutrophils (%) (Auto) 39.9 % 69.4 % Lymphocytes (%) (Auto) 16.4 % 16.0 % Monocytes (%) (Auto) 9.4 % 7.0 % Eosinophils (%) (Auto) 33.6 % 6.7 % Basophils (%) (Auto) 0.7 % 0.9 % Neutrophils # (Auto) 5.7 TH/MM3 6.2 TH/MM3 Lymphocytes # (Auto) 2.3 TH/MM3 1.4 TH/MM3 Monocytes # (Auto) 1.3 TH/MM3 0.6 TH/MM3 Eosinophils # (Auto) 4.8 TH/MM3 0.6 TH/MM3 Basophils # (Auto) 0.1 TH/MM3 0.1 TH/MM3 CBC Comment DIFF FINAL DIFF FINAL Differential Comment Erythrocyte Sedimentation Rate 42 mm/hr Laboratory Tests Test 03/05/18 20:45 03/07/18 05:08 Blood Urea Nitrogen 18 MG/DL 19 MG/DL Creatinine 1.21 MG/DL 1.15 MG/DL Random Glucose 88 MG/DL 136 MG/DL Total Protein 7.7 GM/DL 6.8 GM/DL Albumin 3.6 GM/DL 3.1 GM/DL Calcium Level 8.8 MG/DL 8.3 MG/DL Alkaline Phosphatase 97 U/L 89 U/L Aspartate Amino Transf (AST/SGOT) 50 U/L 60 U/L Alanine Aminotransferase (ALT/SGPT) 37 U/L 39 U/L Total Bilirubin 0.4 MG/DL 0.2 MG/DL Sodium Level 136 MEQ/L 138 MEQ/L Potassium Level 4.1 MEQ/L 4.1 MEQ/L Chloride Level 102 MEQ/L 103 MEQ/L Carbon Dioxide Level 23.0 MEQ/L 23.4 MEQ/L Anion Gap 11 MEQ/L 12 MEQ/L Estimat Glomerular Filtration Rate 43 ML/MIN 46 ML/MIN Lactic Acid Level 1.1 mmol/L Troponin I LESS THAN 0.02 NG/ML B-Type Natriuretic Peptide 25 PG/ML PHYSICAL EXAMINATION: GENERAL: No acute distress. She is awake and alert and oriented. HEENT: [place] conjunctivae, no petechia. No conjunctival erythema. Extraocular movements are grossly intact. Pupils reactive to light; pupils are equal. No icterus. Oropharynx: Moist mucosa without lesions. NECK: Supple, no adenopathy. LUNGS: Clear breath sounds. HEART: Regular S1 and S2. No murmurs, rubs or gallops audible. ABDOMEN: Obese, soft, no tenderness appreciated. EXTREMITIES: Both lower extremities have markedly improved erythema. Has scattered dry patches of skin, some are starting to peel. A tiny ulcer with dried crater is also present at that location. The skin of the feet is dry and there are fissures of the skin at the foot. Edema BLE is markedly better. SKIN: Diffuse maculopapular rash involving the thighs, trunk, back, arms and neck and less pronounced at the face. NEUROLOGIC: No gross focal findings. PSYCHIATRIC: The patient is calm and cooperative. LINE: No evidence of infection IMPRESSION: 1. Cellulitis of the legs. better - (+) Wound culture possibly colonization - she is clinically better on just Cipro which is not a great covergae for Enterococcus. 2. ALLERGIC DRUG RASH TO CEPHALOSPORIN. The patient was receiving Keflex. Eosinophilia improved. 3. Acute kidney disease, stage III. 4. Leukocytosis improved. RECOMMENDATIONS: Continue ciprofloxacin Continue Benadryl for itching. Also on steroids Monitor clinical response. Will not start any new Abx - I believe part of worsening of the redness related to her drug eruption and since that is better, the cellulitis looks better Explained plan to the patient Za Brown MD March 09, 2018 08:54
[2018-03-09] MEDS: SODIUM CHLORIDE 0.9% FLUSH 10 ML FLUSH IV FLUSH SCH ×2 (09:10→20:16)
[2018-03-09] MEDS: LISINOPRIL 10 MG TAB PO SCH (09:12)
[2018-03-09] MEDS: predniSONE 20 MG TAB PO SCH ×3 (09:13→17:51)
[2018-03-09] MEDS: FUROSEMIDE 40 MG TAB PO SCH (09:13)
[2018-03-09] MEDS: ASPIRIN 325 MG TAB PO SCH (09:13)
[2018-03-09] MEDS: POTASSIUM CHLORIDE 10 MEQ CONTROLLED RELEASE TAB PO SCH (09:14)
[2018-03-09] MEDS: CIPROFLOXACIN 250 MG TAB PO SCH ×2 (09:16→20:15)
[2018-03-09] MEDS: DOCUSATE SODIUM 50 MG/SENNA 8.6 MG TAB PO SCH ×2 (09:17→20:16)
--- NOTE | 2018-03-09 09:46 | HHI.PR ---
Subjective Remarks pt rash improving decreased itching and erythema Objective Vital Signs Date Time Temp Pulse Resp B/P (MAP) Pulse Ox O2 Delivery O2 Flow Rate FiO2 03/09/18 08:18 64 16 157/84 (108) 100 03/09/18 05:46 59 16 138/69 (92) 96 03/09/18 05:46 65 03/09/18 00:00 68 16 154/83 (106) 100 03/09/18 00:00 81 03/08/18 20:30 75 03/08/18 20:30 97.8 74 16 132/59 (83) 97 03/08/18 18:00 82 03/08/18 17:00 76 03/08/18 16:00 97.7 80 18 104/51 (68) 96 03/08/18 16:00 76 03/08/18 15:00 82 03/08/18 14:00 62 03/08/18 13:00 70 03/08/18 12:00 97.9 70 16 126/71 (89) 97 03/08/18 12:00 66 03/08/18 11:00 68 03/08/18 10:00 78 I/O 03/08/18 03/08/18 03/08/18 03/09/18 03/09/18 03/09/18 06:59 14:59 22:59 06:59 14:59 22:59 Intake Total 360 ml 600 ml 480 ml Output Total 1150 ml 1100 ml 700 ml Balance -790 ml -500 ml -220 ml Intake Oral 360 ml 600 ml 480 ml Output Urine Total 1150 ml 1100 ml 700 ml # Bowel Movements 0 1 1 Result Diagram: 03/09/18 0449 03/09/18 0449 Imaging Last Impressions Extremity Arterial Study 03/06/18 0000 Signed Impressions: CONCLUSION: 1. Findings consistent with mild left lower extremity peripheral arterial dise ase and bilateral small vessel disease. Chest X-Ray 03/05/18 2018 Signed Impressions: CONCLUSION: 1. No acute abnormality or significant interval change. Objective Remarks GENERAL: Well-nourished, well-developed patient. SKIN: Warm and dry. HEAD: Normocephalic. EYES: No scleral icterus. No injection or drainage. NECK: Supple, trachea midline. No JVD or lymphadenopathy. CARDIOVASCULAR: Regular rate and rhythm without murmurs, gallops, or rubs. RESPIRATORY: Breath sounds equal bilaterally. No accessory muscle use. GASTROINTESTINAL: Abdomen soft,morbidly obese non-tender, nondistended. EXTREMITIES: No cyanosis, 3 plus edema and erythema with peeling skin and weeping lesions. NEUROLOGICAL: Awake, alert, and oriented x 3. Non-focal. Medications and IVs Inpatient Medications Acetaminophen (Tylenol) 650 mg Q4H PRN PO TEMP > 100.4; Start 03/06/18 at 03:00 Acetaminophen/ Codeine Phosphate (Tylenol-Codeine #3) 2 tab Q4H PRN PO PAIN Last administered on 03/08/18at 03:51; Start 03/06/18 at 10:00; Stop 03/08/18 at 08:10; Status DC Albuterol Sulfate (Proair Hfa Inh) 2 puff Q6H PRN INH SHORTNESS OF BREATH; Start 03/06/18 at 03:00 Aspirin (Aspirin) 325 mg DAILY PO Last administered on 03/09/18at 09:13; Start 03/06/18 at 09:00 Atorvastatin Calcium (Lipitor) 20 mg HS PO Last administered on 03/07/18at 21:01 ; Start 03/06/18 at 21:00; Stop 03/08/18 at 08:10; Status DC Bisacodyl (Dulcolax Supp) 10 mg DAILY PRN RECTAL SEVERE CONSITIPATION; Start at 03:00 Ceftriaxone Sodium 1000 mg/ Sodium Chloride 100 ml @ 200 mls/hr ONCE ONCE IV Last administered on 03/05/18at 23:04; Start 03/05/18 at 23:00; Stop 03/05/18 at 23:29; Status DC Cephalexin Monohydrate (Keflex) 500 mg Q6H PO Last administered on 03/06/18at 12 :07; Start 03/06/18 at 06:00; Stop 03/06/18 at 12:14; Status DC Ciprofloxacin (Cipro) 250 mg Q12HR PO Last administered on 03/09/18at 09:16; Start 03/07/18 at 15:00 Daptomycin 400 mg/ Sodium Chloride 100 ml @ 200 mls/hr Q24H IV Last administered on 03/06/18at 14:50; Start 03/06/18 at 14:00; Stop 03/06/18 at 18:36 ; Status DC Diphenhydramine HCl (Benadryl) 25 mg Q6H PRN PO ITCHING Last administered on 12:07; Start 03/06/18 at 06:00; Stop 03/06/18 at 15:01; Status DC Furosemide (Lasix Inj) 40 mg ONCE ONCE IV PUSH Last administered on 03/05/18at 21:04; Start 03/05/18 at 21:00; Stop 03/05/18 at 21:01; Status DC Furosemide (Lasix) 40 mg DAILY PO Last administered on 03/09/18 09:13; Start 03/09/18 at 09:00 Heparin Sodium (Porcine) (Heparin Inj) 5,000 units Q12H SQ Last administered on 03/09/18 06:00; Start 03/06/18 at 06:00 Hydroxyzine HCl (Atarax) 25 mg Q6H PRN PO ITCHING Last administered on at 07:37; Start 03/06/18 at 15:15 Lactulose (Lactulose Liq) 30 ml DAILY PRN PO SEVERE CONSITIPATION; Start at 03:00 Lisinopril (Prinivil) 10 mg DAILY PO Last administered on 03/09/18at 09:12; Start 03/06/18 at 09:00 Magnesium Hydroxide (Milk Of Magnesia Liq) 30 ml Q12H PRN PO Mild constipation ; Start 03/06/18 at 03:00 Naloxone HCl (Narcan Inj) 0.4 mg UNSCH PRN IV PUSH SEE LABEL COMMENTS; Start at 03:00 Ondansetron HCl (Zofran Odt) 4 mg Q6H PRN PO NAUSEA OR VOMITING; Start at 03:00 Potassium Chloride (KCl) 10 meq DAILY PO Last administered on 03/09/18at 09:14; Start 03/06/18 at 09:00 Prednisone (Deltasone) 20 mg TID PO Last administered on 03/09/18at 09:13; Start 03/08/18 at 09:00 Ropinirole HCl (Requip) 0.25 mg TID PO Last administered on 03/09/18at 09:16; Start 03/06/18 at 09:00 Senna/Docusate Sodium (Aster-Colace) 1 tab BID PO ; Start 03/06/18 at 09:00 Sennosides (Senokot) 17.2 mg Q12H PRN PO Moderate constipation; Start 03/06/18 at 03:00 Sodium Chloride (NS Flush) 2 ml BID IV FLUSH Last administered on 03/09/18at 09: 10; Start 03/06/18 at 09:00 Assessment and Plan Assessment and Plan urticaria improving enterococcus cultured ID following Ernesto Sanchez DO March 09, 2018 09:45
[2018-03-09] MEDS: EUCERIN CREAM 120 GM JAR TOPICAL SCH ×3 (11:00→23:51)
--- NOTE | 2018-03-09 17:31 | HHI.NPPN ---
Subjective History of Present Illness Patient is a 77 year old with diffuse rash and casey, edema Objective Data Data Vital Signs Date Time Temp Pulse Resp B/P (MAP) Pulse Ox O2 Delivery O2 Flow Rate FiO2 03/09/18 16:00 64 03/09/18 15:00 71 03/09/18 15:00 97.5 78 16 137/74 (95) 99 03/09/18 14:00 68 03/09/18 13:00 68 03/09/18 12:00 75 03/09/18 11:17 97.5 67 16 112/60 (77) 99 03/09/18 11:00 66 03/09/18 10:00 70 03/09/18 09:00 82 03/09/18 08:18 64 16 157/84 (108) 100 03/09/18 08:00 58 03/09/18 07:00 60 03/09/18 05:46 59 16 138/69 (92) 96 03/09/18 05:46 65 03/09/18 00:00 68 16 154/83 (106) 100 03/09/18 00:00 81 03/08/18 20:30 75 03/08/18 20:30 97.8 74 16 132/59 (83) 97 03/08/18 18:00 82 -: 03/09/18 0449 03/09/18 0449 Physical Exam General Appearance: Well Developed Neck Neck Exam: Neck Supple Pulmonary Resp Exam: Clear Bilaterally, Breath Sounds Equal Cardiology CV Exam: Regular, Normal Sinus Rhythm Gastrointestinal/Abdomen GI Exam: Soft, Non-Tender, Bowel Sounds Present Integumentary Skin Exam: Lesion(s) Extremeties Extremities Exam: Moderate Edema Assessment/Plan Problem List: (1) CASEY (acute kidney injury) ICD Codes: N17.9 - Acute kidney failure, unspecified Plan: Patient has baseline creatinine of 0.9 earlier this month and now the creatinine is higher he has prerenal azotemia due to underlying skin Infectious disease requiring antibiotic Encourage her to drink water order baseline kidney US Lasix to 40 mg daily He has a allergic reaction to medication? causing rash and swelling, this is evident and productive with eosinophilia 33% at time of admission I will suggest to hold atorvastatin CPK mildly elevated as well She did not appears to have any proteinuria on urine exam This can be followed up as outpatient (2) HTN (hypertension) ICD Codes: I10 - Essential (primary) hypertension Plan: Continue to monitor (3) Cellulitis ICD Codes: L03.90 - Cellulitis, unspecified Plan: ID is following gram-negative and leg wound Problem Qualifiers (1) HTN (hypertension): Qualified Codes: I10 - Essential (primary) hypertension Caren Ryder MD March 09, 2018 17:30
[2018-03-10] VITALS (14 sets, daily range): BP systolic 125–160; BP diastolic 61–78; PULSE 56–88; RESP 16–20; TEMP 97.4–98; O2SAT 94–98
[2018-03-10 04:55] LABS: AUTOMATED NEUTROPHIL # 10.8 TH/MM3 (1.8-7.7); BASOPHIL % 0.2 % (0.0-2.0); EOSINOPHIL % 0.3 % (0.0-4.0); HEMATOCRIT 39.5 % (35.0-46.0); HEMOGLOBIN 13.4 GM/DL (11.6-15.3); LYMPH % 17.6 % (9.0-44.0); LYMPHOCYTE # 2.5 TH/MM3 (1.0-4.8); MEAN CELL VOLUME 91.3 FL (80.0-100.0); MEAN CORPUSCULAR HEMOGLOBIN 30.9 PG (27.0-34.0); MEAN CORPUSCULAR HGB CONC 33.9 % (32.0-36.0); MEAN PLATELET VOLUME 7.6 FL (7.0-11.0); MONO % 7.4 % (0.0-8.0); MONOCYTE # 1.1 TH/MM3 (0-0.9); NEUT % 74.5 % (16.0-70.0); PLATELET COUNT 310 TH/MM3 (150-450); RED BLOOD COUNT 4.32 MIL/MM3 (4.00-5.30); RED CELL DISTRIBUTION WIDTH 15.2 % (11.6-17.2); WHITE BLOOD COUNT 14.4 TH/MM3 (4.0-11.0)
[2018-03-10 05:11] LABS: BICARBONATE 29.5 MEQ/L (21.0-32.0); CALCIUM 9.1 MG/DL (8.5-10.1); CREATININE 1.13 MG/DL (0.50-1.00)
[2018-03-10] MEDS: hydrOXYzine HCL 25 MG TAB PO PRN ×2 (05:11→11:57)
[2018-03-10] MEDS: EUCERIN CREAM 120 GM JAR TOPICAL SCH ×3 (05:12→18:00)
[2018-03-10] MEDS: HEPARIN SODIUM - SQ 10,000 UNITS/ML VIAL SQ SCH ×2 (05:12→18:23)
--- NOTE | 2018-03-10 07:24 | HHI.PR ---
Subjective Remarks pt rash improving decreased itching and erythema had shower Objective Vital Signs Date Time Temp Pulse Resp B/P (MAP) Pulse Ox O2 Delivery O2 Flow Rate FiO2 03/10/18 06:16 65 03/10/18 05:41 64 03/10/18 05:05 59 16 151/78 (102) 96 03/10/18 04:02 68 03/10/18 03:00 70 03/10/18 01:02 64 03/10/18 00:26 68 03/10/18 00:00 88 03/09/18 23:48 74 16 151/69 (96) 96 03/09/18 23:00 88 03/09/18 22:00 74 03/09/18 21:00 52 03/09/18 20:15 68 03/09/18 20:08 97.8 66 16 109/51 (70) 96 03/09/18 20:00 74 03/09/18 19:00 84 03/09/18 18:00 74 03/09/18 17:00 60 03/09/18 16:00 64 03/09/18 15:00 71 03/09/18 15:00 97.5 78 16 137/74 (95) 99 03/09/18 14:00 68 03/09/18 13:00 68 03/09/18 12:00 75 03/09/18 11:17 97.5 67 16 112/60 (77) 99 03/09/18 11:00 66 03/09/18 10:00 70 03/09/18 09:00 82 03/09/18 08:18 64 16 157/84 (108) 100 03/09/18 08:00 58 I/O 03/09/18 03/09/18 03/09/18 03/10/18 03/10/18 03/10/18 06:59 14:59 22:59 06:59 14:59 22:59 Intake Total 480 ml 1504 ml 240 ml Output Total 700 ml 1700 ml 1300 ml Balance -220 ml -196 ml -1060 ml Intake Oral 480 ml 1504 ml 240 ml Output Urine Total 700 ml 1700 ml 1300 ml # Bowel Movements 1 2 Result Diagram: 03/10/18 0400 03/10/18 0400 Objective Remarks GENERAL: Well-nourished, well-developed patient. SKIN: Warm and dry. HEAD: Normocephalic. EYES: No scleral icterus. No injection or drainage. NECK: Supple, trachea midline. No JVD or lymphadenopathy. CARDIOVASCULAR: Regular rate and rhythm without murmurs, gallops, or rubs. RESPIRATORY: Breath sounds equal bilaterally. No accessory muscle use. GASTROINTESTINAL: Abdomen soft,morbidly obese non-tender, nondistended. EXTREMITIES: No cyanosis, 3 plus edema and erythema with peeling skin and weeping lesions. NEUROLOGICAL: Awake, alert, and oriented x 3. Non-focal. Medications and IVs Inpatient Medications Acetaminophen (Tylenol) 650 mg Q4H PRN PO TEMP > 100.4; Start 03/06/18 at 03:00 Acetaminophen/ Codeine Phosphate (Tylenol-Codeine #3) 2 tab Q4H PRN PO PAIN Last administered on 03/08/18at 03:51; Start 03/06/18 at 10:00; Stop 03/08/18 at 08:10; Status DC Albuterol Sulfate (Proair Hfa Inh) 2 puff Q6H PRN INH SHORTNESS OF BREATH; Start 03/06/18 at 03:00 Aspirin (Aspirin) 325 mg DAILY PO Last administered on 03/09/18at 09:13; Start 03/06/18 at 09:00 Atorvastatin Calcium (Lipitor) 20 mg HS PO Last administered on 03/07/18at 21:01 ; Start 03/06/18 at 21:00; Stop 03/08/18 at 08:10; Status DC Bisacodyl (Dulcolax Supp) 10 mg DAILY PRN RECTAL SEVERE CONSITIPATION; Start at 03:00 Ceftriaxone Sodium 1000 mg/ Sodium Chloride 100 ml @ 200 mls/hr ONCE ONCE IV Last administered on 03/05/18at 23:04; Start 03/05/18 at 23:00; Stop 03/05/18 at 23:29; Status DC Cephalexin Monohydrate (Keflex) 500 mg Q6H PO Last administered on 03/06/18at 12 :07; Start 03/06/18 at 06:00; Stop 03/06/18 at 12:14; Status DC Ciprofloxacin (Cipro) 250 mg Q12HR PO Last administered on 03/09/18at 20:15; Start 03/07/18 at 15:00 Daptomycin 400 mg/ Sodium Chloride 100 ml @ 200 mls/hr Q24H IV Last administered on 03/06/18at 14:50; Start 03/06/18 at 14:00; Stop 03/06/18 at 18:36 ; Status DC Diphenhydramine HCl (Benadryl) 25 mg Q6H PRN PO ITCHING Last administered on at 12:07; Start 03/06/18 at 06:00; Stop 03/06/18 at 15:01; Status DC Furosemide (Lasix Inj) 40 mg ONCE ONCE IV PUSH Last administered on 03/05/18at 21:04; Start 03/05/18 at 21:00; Stop 03/05/18 at 21:01; Status DC Furosemide (Lasix) 40 mg DAILY PO Last administered on 03/09/18at 09:13; Start 03/09/18 at 09:00 Heparin Sodium (Porcine) (Heparin Inj) 5,000 units Q12H SQ Last administered on 03/10/18at 05:12; Start 03/06/18 at 06:00 Hydroxyzine HCl (Atarax) 25 mg Q6H PRN PO ITCHING Last administered on at 05:11; Start 03/06/18 at 15:15 Lactulose (Lactulose Liq) 30 ml DAILY PRN PO SEVERE CONSITIPATION; Start at 03:00 Lisinopril (Prinivil) 10 mg DAILY PO Last administered on 03/09/18at 09:12; Start 03/06/18 at 09:00 Magnesium Hydroxide (Milk Of Magnesia Liq) 30 ml Q12H PRN PO Mild constipation ; Start 03/06/18 at 03:00 Multi-Ingredient Ointment (Eucerin Cream) 1 applic Q6HR TOPICAL Last administered on 03/10/18at 05:12; Start 03/09/18 at 10:30 Naloxone HCl (Narcan Inj) 0.4 mg UNSCH PRN IV PUSH SEE LABEL COMMENTS; Start at 03:00 Ondansetron HCl (Zofran Odt) 4 mg Q6H PRN PO NAUSEA OR VOMITING; Start at 03:00 Potassium Chloride (KCl) 10 meq DAILY PO Last administered on 03/09/18at 09:14; Start 03/06/18 at 09:00 Prednisone (Deltasone) 20 mg TID PO Last administered on 03/09/18at 17:51; Start 03/08/18 at 09:00 Ropinirole HCl (Requip) 0.25 mg TID PO Last administered on 03/09/18at 17:51; Start 03/06/18 at 09:00 Senna/Docusate Sodium (Aster-Colace) 1 tab BID PO ; Start 03/06/18 at 09:00 Sennosides (Senokot) 17.2 mg Q12H PRN PO Moderate constipation; Start 03/06/18 at 03:00 Sodium Chloride (NS Flush) 2 ml BID IV FLUSH Last administered on 03/09/18at 20: 16; Start 03/06/18 at 09:00 Assessment and Plan Assessment and Plan urticaria improving enterococcus cultured ID following continue gentle diuresis ck lab Ernesto Romero DO March 10, 2018 07:24
[2018-03-10] MEDS: DOCUSATE SODIUM 50 MG/SENNA 8.6 MG TAB PO SCH ×2 (09:00→21:00)
[2018-03-10] MEDS: SODIUM CHLORIDE 0.9% FLUSH 10 ML FLUSH IV FLUSH SCH ×2 (09:00→21:00)
[2018-03-10] MEDS: CIPROFLOXACIN 250 MG TAB PO SCH ×2 (09:23→22:42)
[2018-03-10] MEDS: POTASSIUM CHLORIDE 10 MEQ CONTROLLED RELEASE TAB PO SCH (09:23)
[2018-03-10] MEDS: ASPIRIN 325 MG TAB PO SCH (09:24)
[2018-03-10] MEDS: predniSONE 20 MG TAB PO SCH ×3 (09:24→18:22)
[2018-03-10] MEDS: LISINOPRIL 10 MG TAB PO SCH (09:24)
[2018-03-10] MEDS: FUROSEMIDE 40 MG TAB PO SCH (09:24)
[2018-03-10 09:53] LABS: BANDS 4 % (0-6); LYMPHOCYTES 18 % (9-44); METAMYELOCYTES 3 % (0-1); MONOCYTES 5 % (0-8); NEUTROPHIL # MANUAL DIFF 11.1 TH/MM3 (1.8-7.7); POLYS (SEG NEUTROPHILS) 70 % (16-70)
--- NOTE | 2018-03-10 10:28 | HHI.NPPN ---
Subjective History of Present Illness Patient is a 77 year old with diffuse rash and casey, edema Objective Data Data Vital Signs Date Time Temp Pulse Resp B/P (MAP) Pulse Ox O2 Delivery O2 Flow Rate FiO2 03/10/18 08:14 98.0 64 16 160/71 (100) 98 03/10/18 06:16 65 03/10/18 05:41 64 03/10/18 05:05 59 16 151/78 (102) 96 03/10/18 04:02 68 03/10/18 03:00 70 03/10/18 01:02 64 03/10/18 00:26 68 03/10/18 00:00 88 03/09/18 23:48 74 16 151/69 (96) 96 03/09/18 23:00 88 03/09/18 22:00 74 03/09/18 21:00 52 03/09/18 20:15 68 03/09/18 20:08 97.8 66 16 109/51 (70) 96 03/09/18 20:00 74 03/09/18 19:00 84 03/09/18 18:00 74 03/09/18 17:00 60 03/09/18 16:00 64 03/09/18 15:00 71 03/09/18 15:00 97.5 78 16 137/74 (95) 99 03/09/18 14:00 68 03/09/18 13:00 68 03/09/18 12:00 75 03/09/18 11:17 97.5 67 16 112/60 (77) 99 03/09/18 11:00 66 -: 03/10/18 0400 03/10/18 0400 Physical Exam General Appearance: Well Developed Neck Neck Exam: Neck Supple Pulmonary Resp Exam: Clear Bilaterally, Breath Sounds Equal Cardiology CV Exam: Regular, Normal Sinus Rhythm Gastrointestinal/Abdomen GI Exam: Soft, Non-Tender, Bowel Sounds Present Integumentary Skin Exam: Lesion(s) Extremeties Extremities Exam: Moderate Edema Assessment/Plan Problem List: (1) CASEY (acute kidney injury) ICD Codes: N17.9 - Acute kidney failure, unspecified Plan: Patient has baseline creatinine of 0.9 earlier this month and now the creatinine is higher he has prerenal azotemia due to underlying skin Infectious disease requiring antibiotic Encourage her to drink water UOP 3L Decrease Lasix to 20 mg daily she has a allergic reaction to medication? causing rash and swelling, this is evident and productive with eosinophilia 33% at time of admission I will suggest to hold atorvastatin CPK mildly elevated as well She did not appears to have any proteinuria on urine exam (2) HTN (hypertension) ICD Codes: I10 - Essential (primary) hypertension Plan: Continue to monitor (3) Cellulitis ICD Codes: L03.90 - Cellulitis, unspecified Plan: ID is following gram-negative and leg wound Problem Qualifiers (1) HTN (hypertension): Qualified Codes: I10 - Essential (primary) hypertension Caren Ryder MD March 10, 2018 10:28
--- NOTE | 2018-03-10 11:45 | HHI.IDPN ---
Note Infectious Disease Note Patient is to have a fair amount of itching of the skin. She still has diffuse erythematous rash. No fever. Denies chills. Erythema of the legs has improved. Decrease edema of the legs. 77-year-old white female who presented to the Emergency Department with ongoing pedal edema and erythema of the legs. The patient was seen prior on 02/28/2018 for cellulitis of the legs and she was put on p.o. Keflex at the Emergency Department at [facility]. She states that this began with swelling of the legs the prior day and then she developed skin redness of the legs. She notes that she has had swelling of the legs before, but never redness along with it. The patient did not have improvement with Keflex and she presented again to the Emergency Department on 03/05/2018 with worsening edema. She also developed a rash of the upper extremities and now it is all over the trunk and back and thighs and extremities and it is accompanied by itching. She also reported weakness and difficulty ambulating over the past week. She denies fever, chills, nausea, vomiting, dysuria, shortness of breath, abdominal or joint pains. PAST MEDICAL HISTORY: Coronary artery disease, hypertension, hyperlipidemia, restless leg syndrome, sleep apnea, CVA approximately 1 year ago without residual deficits, appendectomy, hysterectomy, cholecystectomy, sleep apnea. The patient denies contact of her legs with water recently, prior to the onset of this leg swelling and erythema. ALLERGIES: NO KNOWN DRUG ALLERGIES. Vital Signs Date Time Temp Pulse Resp B/P (MAP) Pulse Ox O2 Delivery O2 Flow Rate FiO2 03/10/18 08:14 98.0 64 16 160/71 (100) 98 03/10/18 06:16 65 03/10/18 05:41 64 03/10/18 05:05 59 16 151/78 (102) 96 03/10/18 04:02 68 03/10/18 03:00 70 03/10/18 01:02 64 03/10/18 00:26 68 03/10/18 00:00 88 03/09/18 23:48 74 16 151/69 (96) 96 03/09/18 23:00 88 03/09/18 22:00 74 03/09/18 21:00 52 03/09/18 20:15 68 03/09/18 20:08 97.8 66 16 109/51 (70) 96 03/09/18 20:00 74 03/09/18 19:00 84 03/09/18 18:00 74 03/09/18 17:00 60 03/09/18 16:00 64 03/09/18 15:00 71 03/09/18 15:00 97.5 78 16 137/74 (95) 99 03/09/18 14:00 68 03/09/18 13:00 68 03/09/18 12:00 77 SOCIAL HISTORY: No tobacco, no alcohol, no illicit drugs. Objective: Vital Signs Date Time Temp Pulse Resp B/P (MAP) Pulse Ox O2 Delivery O2 Flow Rate FiO2 03/10/18 08:14 98.0 64 16 160/71 (100) 98 03/10/18 06:16 65 03/10/18 05:41 64 03/10/18 05:05 59 16 151/78 (102) 96 03/10/18 04:02 68 03/10/18 03:00 70 03/10/18 01:02 64 03/10/18 00:26 68 03/10/18 00:00 88 03/09/18 23:48 74 16 151/69 (96) 96 03/09/18 23:00 88 03/09/18 22:00 74 03/09/18 21:00 52 03/09/18 20:15 68 03/09/18 20:08 97.8 66 16 109/51 (70) 96 03/09/18 20:00 74 03/09/18 19:00 84 03/09/18 18:00 74 03/09/18 17:00 60 03/09/18 16:00 64 03/09/18 15:00 71 03/09/18 15:00 97.5 78 16 137/74 (95) 99 03/09/18 14:00 68 03/09/18 13:00 68 03/09/18 12:00 77 Laboratory Tests Test 03/09/18 04:49 03/10/18 04:00 White Blood Count 13.7 TH/MM3 14.4 TH/MM3 Red Blood Count 4.03 MIL/MM3 4.32 MIL/MM3 Hemoglobin 12.5 GM/DL 13.4 GM/DL Hematocrit 36.8 % 39.5 % Mean Corpuscular Volume 91.3 FL 91.3 FL Mean Corpuscular Hemoglobin 31.1 PG 30.9 PG Mean Corpuscular Hemoglobin Concent 34.0 % 33.9 % Red Cell Distribution Width 15.0 % 15.2 % Platelet Count 268 TH/MM3 310 TH/MM3 Mean Platelet Volume 8.1 FL 7.6 FL Neutrophils (%) (Auto) 77.9 % 74.5 % Lymphocytes (%) (Auto) 15.6 % 17.6 % Monocytes (%) (Auto) 5.6 % 7.4 % Eosinophils (%) (Auto) 0.4 % 0.3 % Basophils (%) (Auto) 0.5 % 0.2 % Neutrophils # (Auto) 10.7 TH/MM3 10.8 TH/MM3 Lymphocytes # (Auto) 2.1 TH/MM3 2.5 TH/MM3 Monocytes # (Auto) 0.8 TH/MM3 1.1 TH/MM3 Eosinophils # (Auto) 0.1 TH/MM3 0.0 TH/MM3 Basophils # (Auto) 0.1 TH/MM3 0.0 TH/MM3 CBC Comment DIFF FINAL AUTO DIFF Differential Comment FINAL DIFF MANUAL Hematology Comments Differential Total Cells Counted 100 Neutrophils % (Manual) 70 % Band Neutrophils % 4 % Lymphocytes % 18 % Monocytes % 5 % Neutrophils # (Manual) 11.1 TH/MM3 Metamyelocytes 3 % Platelet Estimate NORMAL Platelet Morphology Comment NORMAL Red Cell Morphology Comment NORMAL Laboratory Tests Test 03/09/18 04:49 03/10/18 04:00 Blood Urea Nitrogen 20 MG/DL 25 MG/DL Creatinine 1.09 MG/DL 1.13 MG/DL Random Glucose 134 MG/DL 126 MG/DL Calcium Level 8.7 MG/DL 9.1 MG/DL Sodium Level 140 MEQ/L 140 MEQ/L Potassium Level 4.4 MEQ/L 4.3 MEQ/L Chloride Level 106 MEQ/L 102 MEQ/L Carbon Dioxide Level 23.4 MEQ/L 29.5 MEQ/L Anion Gap 11 MEQ/L 9 MEQ/L Estimat Glomerular Filtration Rate 49 ML/MIN 47 ML/MIN Total Creatine Kinase 571 U/L Creatine Kinase MB 11.8 NG/ML Creatine Kinase MB % 2.1 % B-Type Natriuretic Peptide 134 PG/ML PHYSICAL EXAMINATION: GENERAL: No acute distress. She is awake and alert and oriented. HEENT: The right eyelid is no longer swollen. Extraocular movements are grossly intact. Pupils reactive to light; pupils are equal. No conjunctival erythema. No icterus. Oropharynx: Moist mucosa without lesions. NECK: Supple, no adenopathy. LUNGS: Clear breath sounds. HEART: Regular S1 and S2. No murmurs, rubs or gallops audible. ABDOMEN: Obese, soft, no tenderness appreciated. EXTREMITIES: Both legs below the knee remained reddened. There is peeling of old skin epidermal layer. No new blisters. SKIN: Diffuse maculopapular rash still present. Very little change. Involving the thighs, trunk, back, arms and neck and less pronounced at the face. NEUROLOGIC: No gross focal findings. PSYCHIATRIC: The patient is calm and cooperative. IMPRESSION: 1. Cellulitis of the legs. Wound culture has Enterobacter and enterococcus. The leg erythema is still present. Patient likely had superimposed infection In addition to cellulitis from drug reaction. She also likely may have scabies which may explain why the rash is not getting better. 2. ALLERGIC DRUG RASH TO CEPHALOSPORIN. The patient was receiving Keflex. Eosinophilia improved. 3. Acute kidney disease, stage III. 4. Leukocytosis improved. RECOMMENDATIONS: 1. Continue p.o. ciprofloxacin 2. Continue Benadryl for itching. 3. Treat with permethrin for scabies. 4. Monitor the rash. Artemio Terry MD March 10, 2018 11:45
[2018-03-10] MEDS ORDERED: PERMETHRIN 5% CREAM 60 GM TOPICAL ONE (13:00)
--- NOTE | 2018-03-10 15:26 | RADRPT ---
EXAM DATE: 03/10/2018 3:06 PM EDT AGE/SEX: 77 years / Female INDICATIONS: Increased Bun and Creatinine. CLINICAL DATA: This is the patient's initial encounter. Patient reports that signs and symptoms have been present for 1 day and indicates a pain score of 0/10. MEDICAL/SURGICAL HISTORY: . CVA. Hypertension. Appendectomy. Cholecystectomy. Hysterectomy. COMPARISON: No prior [facility] exams available for comparison. MEASUREMENTS: Right Kidney:__10.7 x 4.8 x 4.9 cm Left Kidney:__10.6 x 5.3 x 5.6 cm FINDINGS: The kidneys are echogenic characteristics of medical renal disease. There is no hydronephrosis. There is a 1.4 cm cyst midpole left kidney. Bladder is unremarkable. CONCLUSION: 1. Echogenic kidneys characteristic of medical renal disease. Small left renal cyst. Electronically signed by: Rupert Shaver MD 03/10/2018 3:25 PM EDT
[2018-03-11] VITALS: BP 137/67; PULSE 63; RESP 20; TEMP 97.7; O2SAT 94
[2018-03-11] MEDS: HEPARIN SODIUM - SQ 10,000 UNITS/ML VIAL SQ SCH ×2 (05:49→18:35)
[2018-03-11] MEDS: EUCERIN CREAM 120 GM JAR TOPICAL SCH ×4 (05:49→18:00)
[2018-03-11] MEDS: hydrOXYzine HCL 25 MG TAB PO PRN (05:52)
[2018-03-11 06:28] LABS: BICARBONATE 25.9 MEQ/L (21.0-32.0); CALCIUM 8.6 MG/DL (8.5-10.1); CREATININE 1.01 MG/DL (0.50-1.00)
[2018-03-11 08:00] VITALS: BP 148/67; PULSE 60; RESP 18; TEMP 97.7; O2SAT 94
[2018-03-11] MEDS: DOCUSATE SODIUM 50 MG/SENNA 8.6 MG TAB PO SCH ×3 (09:00→21:00)
[2018-03-11] MEDS: POTASSIUM CHLORIDE 10 MEQ CONTROLLED RELEASE TAB PO SCH (09:03)
[2018-03-11] MEDS: FUROSEMIDE 20 MG TAB PO SCH (09:03)
[2018-03-11] MEDS: CIPROFLOXACIN 250 MG TAB PO SCH (09:03)
[2018-03-11] MEDS: predniSONE 20 MG TAB PO SCH ×3 (09:04→18:34)
[2018-03-11] MEDS: ASPIRIN 325 MG TAB PO SCH (09:04)
[2018-03-11] MEDS: LISINOPRIL 10 MG TAB PO SCH (09:04)
[2018-03-11] MEDS: SODIUM CHLORIDE 0.9% FLUSH 10 ML FLUSH IV FLUSH SCH ×2 (09:05→21:00)
--- NOTE | 2018-03-11 09:11 | HHI.PR ---
Subjective Remarks C/o pain to B/L le Legs not as red, but very scaly Objective Vital Signs Date Time Temp Pulse Resp B/P (MAP) Pulse Ox O2 Delivery O2 Flow Rate FiO2 03/11/18 00:00 97.7 63 20 137/67 (90) 94 03/10/18 20:00 97.4 61 20 144/65 (91) 94 03/10/18 16:00 97.8 64 19 137/61 (86) 97 03/10/18 11:15 98.0 64 18 125/70 (88) 98 03/10/18 11:00 62 I/O 03/10/18 03/10/18 03/10/18 03/11/18 03/11/18 03/11/18 07:00 15:00 23:00 07:00 15:00 23:00 Intake Total 240 ml 480 ml 240 ml 360 ml Output Total 1300 ml 500 ml Balance -1060 ml -20 ml 240 ml 360 ml Intake Oral 240 ml 480 ml 240 ml 360 ml Output Urine Total 1300 ml 500 ml # Voids 5 # Bowel Movements 1 Result Diagram: 03/10/18 0400 03/11/18 0515 Imaging Last 72 hours Impressions Renal Ultrasound 03/10/18 0000 Signed Impressions: CONCLUSION: 1. Echogenic kidneys characteristic of medical renal disease. Small left renal cyst. Objective Remarks GENERAL: This is a well-nourished, well-developed patient, obese female. SKIN: warm dry, B/L erythema to B/L LE, rash to b/l eu and LE, with fluid filled pustule to LE HEAD: Atraumatic. Normocephalic. EYES: Pupils equal round and reactive. ENT:. Airway patent. NECK: Trachea midline. No JVD or lymphadenopathy. CARDIOVASCULAR: Regular rate and rhythm without murmurs, gallops, or rubs. RESPIRATORY: Clear to auscultation. Breath sounds equal bilaterally. No wheezes , rales, or rhonchi. GASTROINTESTINAL: Abdomen soft, non-tender, nondistended. MUSCULOSKELETAL: , B/L LE edema. Negative Homans sign bilaterally. NEUROLOGICAL: Awake and alert. Normal speech Medications and IVs Current Medications Medications (Trade) Dose Ordered Sig/Tammy Route Start Time Stop Time Status Last Admin (Proair Hfa Inh) 2 puff Q6H PRN INH 03/06/18 03:00 (Aspirin) 325 mg DAILY PO 03/06/18 09:00 03/10/18 09:24 (Prinivil) 10 mg DAILY PO 03/06/18 09:00 03/10/18 09:24 (KCl) 10 meq DAILY PO 03/06/18 09:00 03/10/18 09:23 (Requip) 0.25 mg TID PO 03/06/18 09:00 03/10/18 18:22 (NS Flush) 2 ml UNSCH PRN IV FLUSH 03/06/18 03:00 (NS Flush) 2 ml BID IV FLUSH 03/06/18 09:00 03/10/18 21:00 (Tylenol) 650 mg Q4H PRN PO 03/06/18 03:00 (Zofran Odt) 4 mg Q6H PRN PO 03/06/18 03:00 (Heparin Inj) 5,000 units Q12H SQ 03/06/18 06:00 03/11/18 05:49 (Narcan Inj) 0.4 mg UNSCH PRN IV PUSH 03/06/18 03:00 (Aster-Colace) 1 tab BID PO 03/06/18 09:00 (Milk Of Magnesia Liq) 30 ml Q12H PRN PO 03/06/18 03:00 (Senokot) 17.2 mg Q12H PRN PO 03/06/18 03:00 (Dulcolax Supp) 10 mg DAILY PRN RECTAL 03/06/18 03:00 (Lactulose Liq) 30 ml DAILY PRN PO 03/06/18 03:00 (Atarax) 25 mg Q6H PRN PO 03/06/18 15:15 03/11/18 05:52 (Cipro) 250 mg Q12HR PO 03/07/18 15:00 03/10/18 22:42 (Deltasone) 20 mg TID PO 03/08/18 09:00 03/10/18 18:22 (Eucerin Cream) 1 applic Q6HR TOPICAL 03/09/18 10:30 03/10/18 11:56 (Lasix) 20 mg DAILY PO 03/11/18 09:00 Assessment and Plan Problem List: (1) Allergic reaction, urticaria ICD Codes: L50.0 - Allergic urticaria Plan: Rash improving, Atrax for itching, wean prednisone, Follow ID recommendations. (2) Cellulitis ICD Codes: L03.90 - Cellulitis, unspecified Plan: wound care, ID consult (3) CASEY (acute kidney injury) ICD Codes: N17.9 - Acute kidney failure, unspecified Plan: Likely to Diuretics, Monitor Renal functions, avoid toxins (4) HTN (hypertension) ICD Codes: I10 - Essential (primary) hypertension Plan: Cont home medications, Monitor Assessment and Plan 03/07/18- VSS afebrile. Kelex stopped, R/T Urticaria rash. ID consulted, wound culture pending. Daptomycin started. Patient c/o itchy skin, atarax helping Arterial study pending for claudication. ROSALIND, Sed rate pending. WBC 8.9. Cont to monitor progress. 03/11/18- VSS, afebrile. C/O B/L LE leg pain. Legs are not as red, but there are large scales of skin in bed and on floor. Treated with Permethrin cream for scabies. Wound culture to legs positive for Enterobacter Coecal/ Enterococcus Faecalis ID following will cont on Cipro po. Prednisone 20 mg tid. Renal functions improving, Cont to follow Renal Recommendations. Problem Qualifiers (1) HTN (hypertension): Qualified Codes: I10 - Essential (primary) hypertension Maki Bah March 11, 2018 09:11
[2018-03-11] MEDS ORDERED: ACETAMINOPHEN/CODEINE 300 MG/30 MG TAB PO PRN (10:15)
[2018-03-11 12:00] VITALS: BP 144/97; PULSE 59; RESP 18; TEMP 97.2; O2SAT 98
--- NOTE | 2018-03-11 12:59 | HHI.NPPN ---
Subjective History of Present Illness Patient is a 77 year old with diffuse rash and casey, edema Objective Data Data Vital Signs Date Time Temp Pulse Resp B/P (MAP) Pulse Ox O2 Delivery O2 Flow Rate FiO2 03/11/18 08:00 97.7 60 18 148/67 (94) 94 03/11/18 00:00 97.7 63 20 137/67 (90) 94 03/10/18 20:00 97.4 61 20 144/65 (91) 94 03/10/18 16:00 97.8 64 19 137/61 (86) 97 -: 03/10/18 0400 03/11/18 0515 Physical Exam General Appearance: Well Developed Neck Neck Exam: Neck Supple Pulmonary Resp Exam: Clear Bilaterally, Breath Sounds Equal Cardiology CV Exam: Regular, Normal Sinus Rhythm Gastrointestinal/Abdomen GI Exam: Soft, Non-Tender, Bowel Sounds Present Integumentary Skin Exam: Lesion(s) Extremeties Extremities Exam: Moderate Edema Assessment/Plan Problem List: (1) CASEY (acute kidney injury) ICD Codes: N17.9 - Acute kidney failure, unspecified Plan: Patient has baseline creatinine of 0.9 earlier this month and now the creatinine is higher he has prerenal azotemia due to underlying skin Infectious disease requiring antibiotic Encourage her to drink water Lasix to 20 mg daily cr improved US Kidney L renal cyst cr 1.03 she has a allergic reaction to medication? causing rash and swelling, this is evident and productive with eosinophilia 33% at time of admission I will suggest to hold atorvastatin CPK mildly elevated as well (2) HTN (hypertension) ICD Codes: I10 - Essential (primary) hypertension Plan: Continue to monitor (3) Cellulitis ICD Codes: L03.90 - Cellulitis, unspecified Plan: ID is following Enterobacter/Enterococcus on Cipro Problem Qualifiers (1) HTN (hypertension): Qualified Codes: I10 - Essential (primary) hypertension Caren Ryder MD March 11, 2018 12:59
--- NOTE | 2018-03-11 12:59 | HHI.IDPN ---
Note Infectious Disease Note Patient notes that the skin itching is improved. No fever. Erythema of the legs and skin rash has improved. Decrease edema of the legs. Notes that she has some pain in the legs since applying the permethrin cream. 77-year-old white female who presented to the Emergency Department with ongoing pedal edema and erythema of the legs. The patient was seen prior on 02/28/2018 for cellulitis of the legs and she was put on p.o. Keflex at the Emergency Department at [facility]. She states that this began with swelling of the legs the prior day and then she developed skin redness of the legs. She notes that she has had swelling of the legs before, but never redness along with it. The patient did not have improvement with Keflex and she presented again to the Emergency Department on 03/05/2018 with worsening edema. She also developed a rash of the upper extremities and now it is all over the trunk and back and thighs and extremities and it is accompanied by itching. She also reported weakness and difficulty ambulating over the past week. She denies fever, chills, nausea, vomiting, dysuria, shortness of breath, abdominal or joint pains. PAST MEDICAL HISTORY: Coronary artery disease, hypertension, hyperlipidemia, restless leg syndrome, sleep apnea, CVA approximately 1 year ago without residual deficits, appendectomy, hysterectomy, cholecystectomy, sleep apnea. The patient denies contact of her legs with water recently, prior to the onset of this leg swelling and erythema. ALLERGIES: NO KNOWN DRUG ALLERGIES. Current Medications Medications (Trade) Dose Ordered Sig/Tammy Route PRN Reason Start Time Stop Time Status Last Admin Dose Admin Albuterol Sulfate (Proair Hfa Inh) 2 puff Q6H PRN INH SHORTNESS OF BREATH 03/06/18 03:00 Aspirin (Aspirin) 325 mg DAILY PO 03/06/18 09:00 03/11/18 09:04 Lisinopril (Prinivil) 10 mg DAILY PO 03/06/18 09:00 03/11/18 09:04 Potassium Chloride (KCl) 10 meq DAILY PO 03/06/18 09:00 03/11/18 09:03 Ropinirole HCl (Requip) 0.25 mg TID PO 03/06/18 09:00 03/11/18 09:04 Sodium Chloride (NS Flush) 2 ml UNSCH PRN IV FLUSH FLUSH AFTER USING IV ACCESS 03/06/18 03:00 Sodium Chloride (NS Flush) 2 ml BID IV FLUSH 03/06/18 09:00 03/11/18 09:05 Acetaminophen (Tylenol) 650 mg Q4H PRN PO TEMP > 100.4 03/06/18 03:00 Ondansetron HCl (Zofran Odt) 4 mg Q6H PRN PO NAUSEA OR VOMITING 03/06/18 03:00 Heparin Sodium (Porcine) (Heparin Inj) 5,000 units Q12H SQ 03/06/18 06:00 03/11/18 05:49 Naloxone HCl (Narcan Inj) 0.4 mg UNSCH PRN IV PUSH SEE LABEL COMMENTS 03/06/18 03:00 Senna/Docusate Sodium (Aster-Colace) 1 tab BID PO 03/06/18 09:00 Magnesium Hydroxide (Milk Of Magnesia Liq) 30 ml Q12H PRN PO Mild constipation 03/06/18 03:00 Sennosides (Senokot) 17.2 mg Q12H PRN PO Moderate constipation 03/06/18 03:00 Bisacodyl (Dulcolax Supp) 10 mg DAILY PRN RECTAL SEVERE CONSITIPATION 03/06/18 03:00 Lactulose (Lactulose Liq) 30 ml DAILY PRN PO SEVERE CONSITIPATION 03/06/18 03:00 Hydroxyzine HCl (Atarax) 25 mg Q6H PRN PO ITCHING 03/06/18 15:15 03/11/18 05:52 Ciprofloxacin (Cipro) 250 mg Q12HR PO 03/07/18 15:00 03/11/18 09:03 Prednisone (Deltasone) 20 mg TID PO 03/08/18 09:00 03/11/18 09:04 Multi-Ingredient Ointment (Eucerin Cream) 1 applic Q6HR TOPICAL 03/09/18 10:30 03/10/18 11:56 Furosemide (Lasix) 20 mg DAILY PO 03/11/18 09:00 03/11/18 09:03 Acetaminophen/ Codeine Phosphate (Tylenol-Codeine #3) 1 tab Q4H PRN PO PAIN 1 TO 10 AND/OR AGITATION 03/11/18 10:15 SOCIAL HISTORY: No tobacco, no alcohol, no illicit drugs. Objective: Vital Signs Date Time Temp Pulse Resp B/P (MAP) Pulse Ox O2 Delivery O2 Flow Rate FiO2 03/11/18 08:00 97.7 60 18 148/67 (94) 94 03/11/18 00:00 97.7 63 20 137/67 (90) 94 03/10/18 20:00 97.4 61 20 144/65 (91) 94 03/10/18 16:00 97.8 64 19 137/61 (86) 97 Laboratory Tests Test 03/10/18 04:00 White Blood Count 14.4 TH/MM3 Red Blood Count 4.32 MIL/MM3 Hemoglobin 13.4 GM/DL Hematocrit 39.5 % Mean Corpuscular Volume 91.3 FL Mean Corpuscular Hemoglobin 30.9 PG Mean Corpuscular Hemoglobin Concent 33.9 % Red Cell Distribution Width 15.2 % Platelet Count 310 TH/MM3 Mean Platelet Volume 7.6 FL Neutrophils (%) (Auto) 74.5 % Lymphocytes (%) (Auto) 17.6 % Monocytes (%) (Auto) 7.4 % Eosinophils (%) (Auto) 0.3 % Basophils (%) (Auto) 0.2 % Neutrophils # (Auto) 10.8 TH/MM3 Lymphocytes # (Auto) 2.5 TH/MM3 Monocytes # (Auto) 1.1 TH/MM3 Eosinophils # (Auto) 0.0 TH/MM3 Basophils # (Auto) 0.0 TH/MM3 CBC Comment AUTO DIFF Differential Total Cells Counted 100 Neutrophils % (Manual) 70 % Band Neutrophils % 4 % Lymphocytes % 18 % Monocytes % 5 % Neutrophils # (Manual) 11.1 TH/MM3 Metamyelocytes 3 % Differential Comment FINAL DIFF MANUAL Platelet Estimate NORMAL Platelet Morphology Comment NORMAL Red Cell Morphology Comment NORMAL Laboratory Tests Test 03/10/18 04:00 03/11/18 05:15 Blood Urea Nitrogen 25 MG/DL 25 MG/DL Creatinine 1.13 MG/DL 1.01 MG/DL Random Glucose 126 MG/DL 128 MG/DL Calcium Level 9.1 MG/DL 8.6 MG/DL Sodium Level 140 MEQ/L 140 MEQ/L Potassium Level 4.3 MEQ/L 4.2 MEQ/L Chloride Level 102 MEQ/L 105 MEQ/L Carbon Dioxide Level 29.5 MEQ/L 25.9 MEQ/L Anion Gap 9 MEQ/L 9 MEQ/L Estimat Glomerular Filtration Rate 47 ML/MIN 53 ML/MIN Last Impressions Renal Ultrasound 03/10/18 0000 Signed Impressions: CONCLUSION: 1. Echogenic kidneys characteristic of medical renal disease. Small left renal cyst. Extremity Arterial Study 03/06/18 0000 Signed Impressions: CONCLUSION: 1. Findings consistent with mild left lower extremity peripheral arterial dise ase and bilateral small vessel disease. Chest X-Ray 03/05/182017 Signed Impressions: CONCLUSION: 1. No acute abnormality or significant interval change. PHYSICAL EXAMINATION: GENERAL: Awake, alert and oriented. HEENT: The right eyelid is no longer swollen. Extraocular movements are grossly intact. Pupils reactive to light; pupils are equal. No conjunctival erythema. No icterus. Oropharynx: Moist mucosa without lesions. NECK: Supple, no adenopathy. LUNGS: Clear breath sounds. HEART: Regular S1 and S2. No murmurs, rubs or gallops audible. ABDOMEN: Obese, soft, no tenderness appreciated. EXTREMITIES: Erythema of the legs improved. There is peeling of old skin epidermal layer with new epidermal layer revealed. SKIN: Rash has improved. Fading. NEUROLOGIC: No gross focal findings. PSYCHIATRIC: Calm and cooperative. IMPRESSION: 1. Cellulitis of the legs. Wound culture has Enterobacter and enterococcus. The leg erythema is still present. Patient likely had superimposed infection in addition to rash from drug reaction which caused significant eosinophilia. Rash is improved after treatment with permethrin for scabies. It is possible she may have had scabies as well. However it may have been masked by reaction to cephalosporin. 2. ALLERGIC DRUG RASH TO CEPHALOSPORIN. The patient was receiving Keflex. Eosinophilia improved. 3. Acute kidney disease, stage III. 4. Leukocytosis. The white blood cell count is elevated again. This is very likely due to prednisone. RECOMMENDATIONS: 1. Stop ciprofloxacin 2. Continue Benadryl for itching. 3. Monitor patient clinically. Consider referral to a heel seat laster if the rash worsens or does not continue to improve. The patient can be discharged from infectious disease standpoint. I will sign off now. Artemio Terry MD March 11, 2018 12:59
[2018-03-11 16:00] VITALS: BP 134/61; PULSE 61; RESP 18; TEMP 97.7; O2SAT 96
--- NOTE | 2018-03-11 16:37 | PD.WCN.NOT ---
Wound Consult Description: Consult for WOUND MANAGEMENT of leg wounds per Dr Sanchez Communicated with: Patient Recommendation: Leave bilateral legs open to air. Legs are dry and flaking presently without any open areas and without drainage. Additional Information: Patient seen on for re-evaluation of bilateral legs. Patient states that she still has itching on her upper extremities only. Her abdomen was visualized and noted to be unremarkable. Patient has diffuse scattered red blotchy areas noted to her arms, upper chest, and decollete. Patient bilateral upper and lower legs and feet visualized. Bilateral lower extremities are noted with large flaking skin leaving a shiny red dry intact skin in its place. There are no open areas noted and no drainage. Recommend to leave open to air with daily showers as ordered. Neg Pressure Wound Therapy Wound Location Wound Location: Consult for WOUND MANAGEMENT of legs per Ellie Talavera [facility] March 11, 2018 16:37
[2018-03-11 20:00] VITALS: BP 139/63; PULSE 77; RESP 18; TEMP 97.6; O2SAT 95
[2018-03-12] VITALS: BP 141/63; PULSE 54; RESP 16; TEMP 97.3; O2SAT 94
[2018-03-12] MEDS: HEPARIN SODIUM - SQ 10,000 UNITS/ML VIAL SQ SCH (05:00)
[2018-03-12] MEDS: hydrOXYzine HCL 25 MG TAB PO PRN (05:03)
[2018-03-12] MEDS: EUCERIN CREAM 120 GM JAR TOPICAL SCH ×2 (05:04)
[2018-03-12 07:22] LABS: AUTOMATED NEUTROPHIL # 10.6 TH/MM3 (1.8-7.7); BASOPHIL % 0.1 % (0.0-2.0); EOSINOPHIL % 0.3 % (0.0-4.0); HEMOGLOBIN 12.3 GM/DL (11.6-15.3); LYMPH % 18.1 % (9.0-44.0); LYMPHOCYTE # 2.6 TH/MM3 (1.0-4.8); MEAN CELL VOLUME 92.3 FL (80.0-100.0); MEAN CORPUSCULAR HEMOGLOBIN 30.8 PG (27.0-34.0); MEAN CORPUSCULAR HGB CONC 33.3 % (32.0-36.0); MEAN PLATELET VOLUME 7.9 FL (7.0-11.0); MONO % 7.1 % (0.0-8.0); NEUT % 74.4 % (16.0-70.0); PLATELET COUNT 263 TH/MM3 (150-450); RED BLOOD COUNT 4.01 MIL/MM3 (4.00-5.30); RED CELL DISTRIBUTION WIDTH 15.1 % (11.6-17.2); WHITE BLOOD COUNT 14.3 TH/MM3 (4.0-11.0)
[2018-03-12] MEDS ORDERED: ACET1TAB94 PO (07:23)
[2018-03-12] MEDS ORDERED: HYDR-3133 PO (07:23)
[2018-03-12] MEDS ORDERED: PRED10PA2 PO (07:23)
--- NOTE | 2018-03-12 07:30 | HHI.DS ---
Discharge Summary Admission Date March 05, 2018 at 23:07 Admitting Diagnosis Cellulitis, peripheral edema Brief History Came to ER for increased LE edema and erythema. She was seen in ER 5 days ago given Lasix and Keflex, with no improvement with legs now draining. She complains of increased pain and difficulty ambulating. She clary fever, voices she has had some chills, No SOB, CP, NV or Diarrhea. CBC/BMP: 03/10/18 0400 03/11/18 0515 Significant Findings Laboratory Tests Test 03/10/18 04:00 03/11/18 05:15 03/12/18 06:19 White Blood Count 14.4 TH/MM3 (4.0-11.0) Neutrophils (%) (Auto) 74.5 % (16.0-70.0) Neutrophils # (Auto) 10.8 TH/MM3 (1.8-7.7) Monocytes # (Auto) 1.1 TH/MM3 (0-0.9) Neutrophils # (Manual) 11.1 TH/MM3 (1.8-7.7) Metamyelocytes 3 % (0-1) Blood Urea Nitrogen 25 MG/DL (7-18) 25 MG/DL (7-18) Creatinine 1.13 MG/DL (0.50-1.00) 1.01 MG/DL (0.50-1.00) Random Glucose 126 MG/DL (74-106) 128 MG/DL (74-106) Estimat Glomerular Filtration Rate 47 ML/MIN (>89) 53 ML/MIN (>89) PE at Discharge GENERAL: This is a well-nourished, well-developed patient, obese female. SKIN: warm dry, B/L erythema to B/L LE, rash to b/l eu and LE, with fluid filled pustule to LE HEAD: Atraumatic. Normocephalic. EYES: Pupils equal round and reactive. ENT:. Airway patent. NECK: Trachea midline. No JVD or lymphadenopathy. CARDIOVASCULAR: Regular rate and rhythm without murmurs, gallops, or rubs. RESPIRATORY: Clear to auscultation. Breath sounds equal bilaterally. No wheezes , rales, or rhonchi. GASTROINTESTINAL: Abdomen soft, non-tender, nondistended. MUSCULOSKELETAL: , B/L LE edema. Negative Homans sign bilaterally. NEUROLOGICAL: Awake and alert. Normal speech Hospital Course Cellulitis of the legs. Wound culture has Enterobacter and enterococcus. ALLERGIC DRUG RASH TO CEPHALOSPORIN. The patient was Receiving Keflex treated with Benadryl, Atrax, prednisone. Seen by Wound care and ID She was treated for scabies with permethrin cream. Arterial study done with findings consistent with mild left lower extremity peripheral arterial disease and bilateral small vessel disease.She will follow up outpatient with vascular. Discharge Disposition: Discharge Home Discharge Instructions Follow up Referrals: Dermatology - 1 Week with Freeman Freeman M.d. PCP Follow-up with Dr Robert Cespedes Call for apt [phone] New Medications: Prednisone (48) 10 mg tab Dose Pack (Prednisone (48) 10 mg tab Dose Pack) 10 Mg Dspk 10 MG PO DIRECTED for Inflammation, #1 DSPK 0 Refills take 10 mg 4 timesa day x 5 days take 10 mg 3 times a day tines 5 days take 10 mg 2 tiomes day x 5 days take 10 mg daily for 3 days. Acetaminophen-Codeine (Acetaminophen-Codeine) 300-30 mg Tab 1 TAB PO Q4H PRN for PAIN 1 TO 10 AND/OR AGITATION for 14 Days, #84 TAB Hydroxyzine HCl (Hydroxyzine HCl) 25 Mg Tab 25 MG PO Q6H PRN for ITCHING for 30 Days, #120 TAB Continued Medications: Albuterol 18 GM Inh (Ventolin Hfa 18 GM Inh) 90 Mcg/Act Aer 2 PUFF INH Q6H PRN for SHORTNESS OF BREATH, #1 INHALER 0 Refills Aspirin (Aspirin) 325 Mg Tab 325 MG PO DAILY for Blood Clot Prevention, #30 TAB Atorvastatin (Atorvastatin) 20 Mg Tab 20 MG PO HS for Cholesterol Management, #30 TAB Furosemide (Lasix) 20 Mg Tab 20 MG PO BID, #30 TAB 0 Refills Lisinopril (Lisinopril) 10 Mg Tab 10 MG PO DAILY, #30 TAB 0 Refills Potassium Chloride ER (Klor-Con 10) 10 Meq Tab 10 MEQ PO DAILY for Electrolyte Replacement, #30 TAB 0 Refills Ropinirole (Ropinirole) 0.25 Mg Tab 0.25 MG PO TID, #90 TAB 0 Refills Discontinued Medications: Cephalexin (Keflex) 500 Mg Capsule 500 MG PO Q6H for Infection for 7 Days, #28 CAP 0 Refills Maki Bah March 12, 2018 07:30
[2018-03-12 07:51] LABS: BICARBONATE 24.8 MEQ/L (21.0-32.0); BLOOD UREA NITROGEN 25 MG/DL (7-18); CALCIUM 8.8 MG/DL (8.5-10.1); CHLORIDE 102 MEQ/L (98-107); CREATININE 1.09 MG/DL (0.50-1.00); GLOMERULAR FILTRATION RATE 49 ML/MIN (>89); GLUCOSE,RANDOM 206 MG/DL (74-106); SODIUM (NA) 136 MEQ/L (136-145)
[2018-03-12 08:00] VITALS: BP 140/62; PULSE 57; RESP 16; TEMP 97.3; O2SAT 94
[2018-03-12] MEDS: DOCUSATE SODIUM 50 MG/SENNA 8.6 MG TAB PO SCH (09:00)
[2018-03-12] MEDS: SODIUM CHLORIDE 0.9% FLUSH 10 ML FLUSH IV FLUSH SCH (09:00)
[2018-03-12] MEDS: LISINOPRIL 10 MG TAB PO SCH (09:35)
[2018-03-12] MEDS: FUROSEMIDE 20 MG TAB PO SCH (09:35)
[2018-03-12] MEDS: predniSONE 20 MG TAB PO SCH (09:35)
[2018-03-12] MEDS: POTASSIUM CHLORIDE 10 MEQ CONTROLLED RELEASE TAB PO SCH (09:35)
[2018-03-12] MEDS: ASPIRIN 325 MG TAB PO SCH (09:35)
[2018-03-12 09:44] LABS: BANDS 6 % (0-6); LYMPHOCYTES 10 % (9-44); MONOCYTES 4 % (0-8); MYELOCYTES 1 % (0-0); NEUTROPHIL # MANUAL DIFF 12.2 TH/MM3 (1.8-7.7); POLYS (SEG NEUTROPHILS) 78 % (16-70)
[2018-03-12 16:47] LABS: HEMOGLOBIN A1C 6.6 % (4.3-6.0)
== END 2018-03-12 14:03 | disposition home or self-care (01) | DRG 603 ==
LOC: NEPD 17:39 → NEDA 23:07 → HCIS 03-06 02:00 → N07A 03-10 14:51
PROVIDERS: ADMIT Family Medicine; ATTEND Family Medicine
DX: L03.115 Cellulitis of right lower limb (principal); N17.9 Acute kidney failure, unspecified; D72.1 Eosinophilia; N28.1 Cyst of kidney, acquired; I73.9 Peripheral vascular disease, unspecified; B96.89 Other specified bacterial agents as the cause of diseases classified elsewhere; B95.2 Enterococcus as the cause of diseases classified elsewhere; B86 Scabies; L03.116 Cellulitis of left lower limb; Z88.8 Allergy status to other drugs, medicaments and biological substances; Z79.82 Long term (current) use of aspirin; Z90.710 Acquired absence of both cervix and uterus; Z86.73 Personal history of transient ischemic attack (TIA), and cerebral infarction without residual deficits; T38.0X5A Adverse effect of glucocorticoids and synthetic analogues, initial encounter; I10 Essential (primary) hypertension; G25.81 Restless legs syndrome; E78.5 Hyperlipidemia, unspecified; I25.10 Atherosclerotic heart disease of native coronary artery without angina pectoris; L50.0 Allergic urticaria; R26.2 Difficulty in walking, not elsewhere classified; R60.0 Localized edema; Z90.49 Acquired absence of other specified parts of digestive tract
CPT/HCPCS: 71045; 76775; 80048; 80053; 81001; 82550; 82552; 83036; 83605; 83880; 84484; 85007; 85025; 85027; 85610; 85652; 85730; 86038; 87070; 87077; 87186; 87205; 93005; 93922; 96374; 96375; J0696; J0878; J1644; J1940; J7512